=== PATIENT | male | born 1995 | race Caucasian/White ===

== ENCOUNTER 2016-12-17 22:52 | Emergency (ER) | payer MEDICAID, MEDICARE ==
--- NOTE | 2016-12-17 23:17 | EDM.PDOC ---
ED HPI GENERAL MEDICAL PROBLEM - General Chief Complaint: Behavioral/Psych Stated Complaint: NEW [facility] AMB Time Seen by Provider: 12/17/16 22:56 Source of Information: Reports: Patient, EMS History Limitations: Reports: Intoxication - History of Present Illness INITIAL COMMENTS - FREE TEXT/NARRATIVE: This is a 21-year-old male. He was brought in by the ambulance because he took 20 Motrin, drank a bottle of DayQuil, had some whiskey and was not acting right. 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 When he comes he is able to talk though he is somewhat confused though he knows he is at the hospital. He is not certain who it was the called the ambulance to come and get him but he indicated he thought it was family who thought he might be suicidal. Apparently he is overdosed several times on heroin which is his drug abuse but he states he hasn't used heroin in about a month. He normally shoots up in his arms his legs or his feet. He has been to rehabilitation several times but he did not indicate where. He is talking his vital signs are stable. He does not appear to be in acute distress. He does have some slurred speech and is confused at times with his story. When I asked the patient did this he is suicidal he says no I'm not trying to kill myself. He says he just wants to sleep. The best we can tell the patient states he took all of these things about 8 PM this evening which is about 3 hours prior to arriving to the ER. The parents arrived at 6:55 AM. They indicate that he has attempted suicide 3 times in the last 6 months and appears to be related to a woman in [place] that he had an Internet romance with the neck she went to [place] when he was 20 years old to be with her and then he brought her back home and she was a heroin addict and got him hooked on heroin. So he is a high risk individual for suicide attempts and gestures. Back Pain Score (Numeric/FACES): 8 - Related Data Allergies Allergy/AdvReac Type Severity Reaction Status Date / Time No Known Allergies Allergy Verified 12/17/16 23:09 Home Meds: Home Meds Doxepin 12/17/16 [History] Seroquel 12/17/16 [History] Past Medical History Musculoskeletal History: Reports: Back Pain, Chronic Psychiatric History: Reports: Bipolar, Depression, Schizophrenia, Suicide Attempt, Suicidal Ideation Other Psychiatric History: paranoid schizophrenia Social & Family History - Tobacco Use Smoking Status *Q: Current Every Day Smoker Years of Tobacco use: 1 Packs/Tins Daily: 1 - Recreational Drug Use Recreational Drug Use: Yes Drug Use in Last 12 Months: Yes Recreational Drug Type: Reports: Heroin, Methamphetamine Recreational Drug Use Frequency: Not Used In Over 3 Months ED ROS GENERAL - Review of Systems Review Of Systems: See Below Constitutional: Denies: Fever, Chills HEENT: Reports: No Symptoms Respiratory: Reports: No Symptoms Cardiovascular: Reports: No Symptoms Endocrine: Reports: No Symptoms GI/Abdominal: Reports: No Symptoms : Reports: No Symptoms Musculoskeletal: Reports: No Symptoms Skin: Reports: Other (He is a cutter and his left upper extremity has sustained the most cuts in the past and present) Neurological: Reports: Confusion Psychiatric: Reports: Other (Patient does abuse heroin, he denies being suicidal presently) Hematologic/Lymphatic: Reports: No Symptoms - Physical Exam Exam: See Below Exam Limited By: Altered Mental Status General Appearance: Alert, WD/WN, No Apparent Distress Eye Exam: Bilateral Eye: Normal Inspection Ears: Normal External Exam, Normal Canal, Normal TMs Nose: Normal Inspection Throat/Mouth: Normal Inspection, Normal Lips, Normal Voice, No Airway Compromise Head Exam: Normocephalic Neck: Supple Respiratory/Chest: No Respiratory Distress, Lungs Clear, Normal Breath Sounds Cardiovascular: Regular Rate, Rhythm, No Murmur GI/Abdominal: Soft, Non-Tender, Other (Bowel sounds are decreased in all 4 quadrants) Neuro Exam (Abbreviated): Alert, Confused, Slow to Respond, Other (Patient knows he is at the hospital he knows who he is, but he is confused and inattentive and with some recent memory confusion as to the events) Back Exam: Full Range of Motion Extremities: Other (He has multiple old and new linear abrasions to his left upper extremity and with some cuts to his left wrist that do not require suturing, his right upper extremity shows a couple of tract casarez though he has less cuttings on his right upper extremity) Psychiatric: Flat Affect Skin Exam: Warm, Dry EKG INTERPRETATION EKG Date: 12/17/16 Time: 23:15 EKG Interpretation Comments: EKG shows a normal sinus rhythm rate of 85, there are no acute ST or T-wave changes noted there is no ischemia noted. He does have poor R-wave progression in the anterior leads but I do not believe this indicates an old anterior TX. Course - Vital Signs Last Recorded V/S: Last Vital Signs Temp 97.3 F 12/17/16 22:58 Pulse 75 12/18/16 06:00 Resp 14 12/18/16 06:00 BP 119/72 12/17/16 22:58 Pulse Ox 97 12/18/16 06:00 - Orders/Labs/Meds Orders: Active Orders 24 hr Category Date Time Status EKG 12 Lead [EKG Documentation Completion] [RC] STAT Care 12/17/16 23:09 Active Sodium Chloride 0.9% [Normal Saline] 1,000 ml Med 12/18/16 00:30 Active IV ASDIRECTED Medication Orders Sodium Chloride (Normal Saline) 1,000 mls @ 1,000 mls/hr IV ASDIRECTED LUIS Last Admin: 12/18/16 00:30 Dose: 1,000 mls/hr Labs: Laboratory Tests 12/17/16 12/17/16 12/17/16 Range/Units 22:58 22:58 22:58 WBC 15.07 H (4.23-9.07) K/mm3 RBC 5.17 (4.63-6.08) M/mm3 Hgb 14.0 (13.7-17.5) gm/L Hct 42.5 (40.1-51.0) % MCV 82.2 (79.0-92.2) fl MCH 27.1 (25.7-32.2) pg MCHC 32.9 (32.2-35.5) g/dl RDW Std Deviation 48.2 H (35.1-43.9) fL Plt Count 318 (163-337) K/mm3 MPV 9.8 (9.4-12.3) fl Neut % (Auto) 68.0 H (34.0-67.9) % Lymph % (Auto) 17.6 L (21.8-53.1) % Summers % (Auto) 9.6 (5.3-12.2) % Eos % (Auto) 4.1 (0.8-7.0) Baso % (Auto) 0.5 (0.1-1.2) % Neut # (Auto) 10.24 H (1.78-5.38) K/mm3 Lymph # (Auto) 2.65 (1.32-3.57) K/mm3 Summers # (Auto) 1.45 H (0.30-0.82) K/mm3 Eos # (Auto) 0.62 H (0.04-0.54) K/mm3 Baso # (Auto) 0.08 (0.01-0.08) K/mm3 Manual Slide Review Abnormal smear Sodium 144 (136-145) mEq/L Potassium 2.8 L (3.5-5.1) mEq/L Chloride 104 (98-107) mEq/L Carbon Dioxide 26 (21-32) mEq/L Anion Gap 16.8 H (5-15) BUN 8 (7-18) mg/dL Creatinine 1.0 (0.7-1.3) mg/dL Est Cr Clr Drug Dosing 156.17 mL/min Estimated GFR (MDRD) > 60 (>60) mL/min BUN/Creatinine Ratio 8.0 L (14-18) Glucose 92 (74-106) mg/dL Lactic Acid (0.4-2.0) mmol/L Calcium 9.2 (8.5-10.1) mg/dL Total Bilirubin 0.2 (0.2-1.0) mg/dL AST 10 L (15-37) U/L ALT 36 (16-63) U/L Alkaline Phosphatase 94 (46-116) U/L Total Protein 8.2 (6.4-8.2) g/dl Albumin 3.8 (3.4-5.0) g/dl Globulin 4.4 gm/dL Albumin/Globulin Ratio 0.9 L (1-2) Urine Color (Yellow) Urine Appearance (Clear) Urine pH (5.0-8.0) Ur Specific [place] (1.005-1.030) Urine Protein (Negative) Urine Glucose (UA) (Negative) Urine Ketones (Negative) Urine Occult Blood (Negative) Urine Nitrite (Negative) Urine Bilirubin (Negative) Urine Urobilinogen (0.2-1.0) Ur Leukocyte Esterase (Negative) Urine RBC (0-5) /hpf Urine WBC (0-5) /hpf Ur Epithelial Cells (0-5) /hpf Urine Bacteria (FEW) /hpf Urine Mucus (FEW) /hpf Salicylates 5.8 (2.8-20) mg/dL Urine Opiates Screen (NEGATIVE) Ur Buprenorphine Scrn (NEGATIVE) Ur Oxycodone Screen (NEGATIVE) Urine Methadone Screen (NEGATIVE) Ur Propoxyphene Screen (NEGATIVE) Acetaminophen 6 L (10-30) ug/mL Ur Barbiturates Screen (NEGATIVE) Ur Tricyclics Screen (NEGATIVE) Ur Phencyclidine Scrn (NEGATIVE) Ur Amphetamine Screen (NEGATIVE) U Methamphetamines Scrn (NEGATIVE) U Benzodiazepines Scrn (NEGATIVE) U Cocaine Metab Screen (NEGATIVE) U Marijuana (THC) Screen (NEGATIVE) Ethyl Alcohol 0.19 (0.00) gm% 12/17/16 12/18/16 12/18/16 Range/Units 23:15 00:25 00:36 WBC (4.23-9.07) K/mm3 RBC (4.63-6.08) M/mm3 Hgb (13.7-17.5) gm/L Hct (40.1-51.0) % MCV (79.0-92.2) fl MCH (25.7-32.2) pg MCHC (32.2-35.5) g/dl RDW Std Deviation (35.1-43.9) fL Plt Count (163-337) K/mm3 MPV (9.4-12.3) fl Neut % (Auto) (34.0-67.9) % Lymph % (Auto) (21.8-53.1) % Summers % (Auto) (5.3-12.2) % Eos % (Auto) (0.8-7.0) Baso % (Auto) (0.1-1.2) % Neut # (Auto) (1.78-5.38) K/mm3 Lymph # (Auto) (1.32-3.57) K/mm3 Summers # (Auto) (0.30-0.82) K/mm3 Eos # (Auto) (0.04-0.54) K/mm3 Baso # (Auto) (0.01-0.08) K/mm3 Manual Slide Review Sodium (136-145) mEq/L Potassium (3.5-5.1) mEq/L Chloride (98-107) mEq/L Carbon Dioxide (21-32) mEq/L Anion Gap (5-15) BUN (7-18) mg/dL Creatinine (0.7-1.3) mg/dL Est Cr Clr Drug Dosing mL/min Estimated GFR (MDRD) (>60) mL/min BUN/Creatinine Ratio (14-18) Glucose (74-106) mg/dL Lactic Acid 2.6 H (0.4-2.0) mmol/L Calcium (8.5-10.1) mg/dL Total Bilirubin (0.2-1.0) mg/dL AST (15-37) U/L ALT (16-63) U/L Alkaline Phosphatase (46-116) U/L Total Protein (6.4-8.2) g/dl Albumin (3.4-5.0) g/dl Globulin gm/dL Albumin/Globulin Ratio (1-2) Urine Color Yellow (Yellow) Urine Appearance Clear (Clear) Urine pH 6.5 (5.0-8.0) Ur Specific [place] 1.015 (1.005-1.030) Urine Protein Negative (Negative) Urine Glucose (UA) Negative (Negative) Urine Ketones Negative (Negative) Urine Occult Blood Negative (Negative) Urine Nitrite Negative (Negative) Urine Bilirubin Negative (Negative) Urine Urobilinogen 0.2 (0.2-1.0) Ur Leukocyte Esterase Negative (Negative) Urine RBC Not seen (0-5) /hpf Urine WBC Not seen (0-5) /hpf Ur Epithelial Cells Not seen (0-5) /hpf Urine Bacteria Not seen (FEW) /hpf Urine Mucus Few (FEW) /hpf Salicylates (2.8-20) mg/dL Urine Opiates Screen (NEGATIVE) Ur Buprenorphine Scrn (NEGATIVE) Ur Oxycodone Screen (NEGATIVE) Urine Methadone Screen (NEGATIVE) Ur Propoxyphene Screen (NEGATIVE) Acetaminophen 4 L (10-30) ug/mL Ur Barbiturates Screen (NEGATIVE) Ur Tricyclics Screen (NEGATIVE) Ur Phencyclidine Scrn (NEGATIVE) Ur Amphetamine Screen (NEGATIVE) U Methamphetamines Scrn (NEGATIVE) U Benzodiazepines Scrn (NEGATIVE) U Cocaine Metab Screen (NEGATIVE) U Marijuana (THC) Screen (NEGATIVE) Ethyl Alcohol (0.00) gm% 12/18/16 12/18/16 12/18/16 Range/Units 00:36 01:35 MST 03:10 WBC (4.23-9.07) K/mm3 RBC (4.63-6.08) M/mm3 Hgb (13.7-17.5) gm/L Hct (40.1-51.0) % MCV (79.0-92.2) fl MCH (25.7-32.2) pg MCHC (32.2-35.5) g/dl RDW Std Deviation (35.1-43.9) fL Plt Count (163-337) K/mm3 MPV (9.4-12.3) fl Neut % (Auto) (34.0-67.9) % Lymph % (Auto) (21.8-53.1) % Summers % (Auto) (5.3-12.2) % Eos % (Auto) (0.8-7.0) Baso % (Auto) (0.1-1.2) % Neut # (Auto) (1.78-5.38) K/mm3 Lymph # (Auto) (1.32-3.57) K/mm3 Summers # (Auto) (0.30-0.82) K/mm3 Eos # (Auto) (0.04-0.54) K/mm3 Baso # (Auto) (0.01-0.08) K/mm3 Manual Slide Review Sodium 145 (136-145) mEq/L Potassium 3.2 L (3.5-5.1) mEq/L Chloride 107 (98-107) mEq/L Carbon Dioxide 25 (21-32) mEq/L Anion Gap 16.2 H (5-15) BUN 9 (7-18) mg/dL Creatinine 0.8 (0.7-1.3) mg/dL Est Cr Clr Drug Dosing 195.21 mL/min Estimated GFR (MDRD) > 60 (>60) mL/min BUN/Creatinine Ratio 11.3 L (14-18) Glucose 81 (74-106) mg/dL Lactic Acid (0.4-2.0) mmol/L Calcium 8.3 L (8.5-10.1) mg/dL Total Bilirubin 0.2 (0.2-1.0) mg/dL AST 9 L (15-37) U/L ALT 33 (16-63) U/L Alkaline Phosphatase 89 (46-116) U/L Total Protein 7.4 (6.4-8.2) g/dl Albumin 3.4 (3.4-5.0) g/dl Globulin 4.0 gm/dL Albumin/Globulin Ratio 0.9 L (1-2) Urine Color (Yellow) Urine Appearance (Clear) Urine pH (5.0-8.0) Ur Specific [place] (1.005-1.030) Urine Protein (Negative) Urine Glucose (UA) (Negative) Urine Ketones (Negative) Urine Occult Blood (Negative) Urine Nitrite (Negative) Urine Bilirubin (Negative) Urine Urobilinogen (0.2-1.0) Ur Leukocyte Esterase (Negative) Urine RBC (0-5) /hpf Urine WBC (0-5) /hpf Ur Epithelial Cells (0-5) /hpf Urine Bacteria (FEW) /hpf Urine Mucus (FEW) /hpf Salicylates 4.8 (2.8-20) mg/dL Urine Opiates Screen Negative (NEGATIVE) Ur Buprenorphine Scrn Negative (NEGATIVE) Ur Oxycodone Screen Negative (NEGATIVE) Urine Methadone Screen Negative (NEGATIVE) Ur Propoxyphene Screen Negative (NEGATIVE) Acetaminophen (10-30) ug/mL Ur Barbiturates Screen Negative (NEGATIVE) Ur Tricyclics Screen Negative (NEGATIVE) Ur Phencyclidine Scrn Negative (NEGATIVE) Ur Amphetamine Screen Negative (NEGATIVE) U Methamphetamines Scrn Negative (NEGATIVE) U Benzodiazepines Scrn Negative (NEGATIVE) U Cocaine Metab Screen Negative (NEGATIVE) U Marijuana (THC) Screen Negative (NEGATIVE) Ethyl Alcohol 0.08 (0.00) gm% Meds: Medications Generic Name Dose Route Start Last Admin Trade Name Luiz PRN Reason Stop Dose Admin Sodium Chloride 1,000 mls @ 1,000 mls/hr 12/18/16 00:30 12/18/16 00:30 Normal Saline IV 1,000 mls/hr ASDIRECTED [facility] Administration - Re-Assessments/Exams Free Text/Narrative Re-Assessment/Exam: 12/18/16 06:29 During the patient's stay in the ER this morning he has been sleeping the entire time and in no distress his vital signs have been stable. He is awake now and is willing to talk to someone about this event and be evaluated psychologically. He states he is not suicidal at this time and has no desire to hurt himself. He denies any significant symptoms presently other than just being very tired. He might have some mild stomach discomfort but no pain and there's been no nausea or vomiting. 12/18/16 06:30 We will see if we can get in individual to psychologically evaluate him to determine his disposition. 12/18/16 07:[address] Alexander at [facility] in [place] psych bobby and she agrees to accept the patient in transport for further evaluation and treatment. I did speak to Dr. Howard regarding this patient and he felt that this was a necessary the middle with his history with his repetitive overdosing and his admitted history of heroin use. Therefore fill out the committal papers. Due to the wait time for the head injury or air traffic control operator to come to the ER the patient will be temporarily housed at the law [facility] Center [facility]. 12/18/16 08:01 The patient became more agitated and slightly belligerent when he realized to be going to a psych unit for evaluation. He began taking off all of his wires and monitors and almost pulled out his IV untill we came into the room. I explained to him that he was under committal and that he would go to [facility] psych unit in [place] for further evaluation and treatment. We did call the local Police Department to come because of the patient's desire to leave and we were afraid he is a flight risk. He is a danger to himself at this time. Departure - Departure Time of Disposition: 07:58 Disposition: DC/Tfer to Psych Hosp/Unit 65 Condition: Good Clinical Impression: Heroin addiction Drug overdose, multiple drugs Qualifiers: Encounter type: initial encounter Injury intent: intentional self-harm Qualified Code(s): T50.902A - Poisoning by unspecified drugs, medicaments and biological substances, intentional self-harm, initial encounter Suicide gesture Qualifiers: Encounter type: initial encounter Qualified Code(s): X83.8XXA - Intentional self-harm by other specified means, initial encounter Laceration of forearm, left Qualifiers: Encounter type: initial encounter Qualified Code(s): S51.812A - Laceration without foreign body of left forearm, initial encounter Laceration of left wrist Qualifiers: Encounter type: initial encounter Qualified Code(s): S61.512A - Laceration without foreign body of left wrist, initial encounter Acute alcohol intoxication Qualifiers: Complication of substance-induced condition: uncomplicated Qualified Code(s): F10.929 - Alcohol use, unspecified with intoxication, unspecified - Discharge Information Forms: ED Department Discharge Additional Instructions: He will be discharged to the [facility] for holding until the [facility] can pick him up and take him to [facility] in [place] to the psych unit for further evaluation and treatment. Dr. Alexander at [facility] psych unit in [place] accepts the patient in transport for further evaluation and treatment. All committal forms were filled out and will accompany the patient as well as the history and physical. ED Communication - ED Communication Date/Time Date: 12/18/16 Time Called: 08:03 - Discussed Case With (1) Discussed Case With (1): Admitting Provider Person/s Notified (1): Dr. Alexander (She accepts the patient) - My Orders Last 24 Hours: My Active Orders 12/17/16 23:09 EKG 12 Lead [EKG Documentation Completion] [RC] STAT 12/18/16 00:30 Sodium Chloride 0.9% [Normal Saline] 1,000 ml IV ASDIRECTED - Assessment/Plan Last 24 Hours: My Active Orders 12/17/16 23:09 EKG 12 Lead [EKG Documentation Completion] [RC] STAT 12/18/16 00:30 Sodium Chloride 0.9% [Normal Saline] 1,000 ml IV ASDIRECTED
[2016-12-17 23:32] LABS: ACETAMINOPHEN 6 ug/mL (10-30)
[2016-12-18] MEDS ORDERED: Sodium Chloride 0.9% 1,000 ML IV SCH (00:30)
== END 2016-12-18 08:11 ==
LOC: JD.ED 22:52
DX: T50.902A Poisoning by unspecified drugs, medicaments and biological substances, intentional self-harm, initial encounter (principal); S51.812A Laceration without foreign body of left forearm, initial encounter; S61.512A Laceration without foreign body of left wrist, initial encounter; F10.120 Alcohol abuse with intoxication, uncomplicated; F32.9 Major depressive disorder, single episode, unspecified; F17.210 Nicotine dependence, cigarettes, uncomplicated; X78.9XXA Intentional self-harm by unspecified sharp object, initial encounter; Y90.0 Blood alcohol level of less than 20 mg/100 ml
CPT/HCPCS: 36415; 80053; 80306; 81001; 83605; 85025; 93005; 96360; 99285; G0480; J7040; 93010

== ENCOUNTER 2017-01-20 16:41 | Emergency (ER) | payer MEDICAID, MEDICARE ==
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
[2017-01-20] MEDS ORDERED: Lidocaine 2% Jelly 10 ML Urojet MUCMEM ONE (19:00)
== END 2017-01-20 20:45 | disposition home or self-care (01) ==
LOC: JD.ED 16:41
DX: R33.9 Retention of urine, unspecified (principal); F15.10 Other stimulant abuse, uncomplicated; F32.9 Major depressive disorder, single episode, unspecified; F17.210 Nicotine dependence, cigarettes, uncomplicated; Z79.899 Other long term (current) drug therapy
CPT/HCPCS: 36415; 51702; 51798; 80053; 81001; 85025; 99283-25; 99284-25

== ENCOUNTER 2017-01-27 13:24 | Emergency (ER) | payer MEDICARE, MEDICAID ==
--- NOTE | 2017-01-27 16:02 | US ---
Left lower extremity deep venous ultrasound: Duplex and color flow imaging was obtained of the left common femoral, proximal greater saphenous, superficial femoral, popliteal, posterior tibial and peroneal veins. Right common femoral vein also evaluated. Posterior tibial and peroneal veins were seen by color flow Doppler and show normal phasicity. These same veins could not be clearly seen to compress but I do not believe that there is any definite venous thrombosis within the calf veins. Other veins show normal phasic flow, augmentation and compression. Impression: 1. Slightly limited evaluation of the calf veins but nothing felt to be present to indicate deep venous thrombosis within the left lower extremity or within the right common femoral vein. Diagnostic code #2
[2017-01-27] MEDS ORDERED: Iopamidol 755 Mg/ML 100 ML Bottle IVPUSH ONE (16:17)
[2017-01-27] MEDS ORDERED: Sodium Chloride 0.9% 10 ML Syringe FLUSH PRN (16:17)
[2017-01-27] MEDS ORDERED: Iopamidol 755 MG/ML 50 ML Bottle IVPUSH ONE (16:17)
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
[2017-01-27] MEDS ORDERED: Ibuprofen 800 MG Tab PO ONE (16:59)
[2017-01-27] MEDS ORDERED: Sodium Chloride 0.9% 100 ML IV SCH (17:00)
[2017-01-27] MEDS ORDERED: Doxycycline 100 MG Cap PO ONE (17:20)
--- NOTE | 2017-01-27 17:29 | CT ---
CT chest Technique: Multiple axial sections were obtained through the chest. Intravenous contrast was utilized. Study has been performed as a pulmonary angiogram protocol. Findings: Pulmonary arteries are moderately well-opacified. Filling defects are felt to be present within the subsegmental branches within both lower lobes compatible with small pulmonary emboli. Small filling defects also seen within several segmental and subsegmental branches within the right upper lung and within the left upper lung. Visualized upper abdominal structures are within normal limits. No pericardial thickening is seen. No findings to indicate elevated right heart pressures. Mediastinum and hilar regions show no adenopathy or mass. Lungs are clear. No pleural effusions are seen. Impression: 1. Multiple small pulmonary emboli seen within both lower lungs as well as within both upper lungs. Diagnostic code #5
--- NOTE | 2017-01-30 08:34 | CR ---
Chest: Two views of the chest were obtained. Comparison: No prior chest x-ray. Heart size and mediastinum are normal. Minimal left basilar atelectasis is seen. Lungs otherwise are clear. Bony structures show slight anterior wedging at the thoracolumbar junction resulting in kyphosis. Impression: 1. Anterior wedging at the thoracolumbar junction which appears to be old. 2. Nothing acute is seen on two-view chest x-ray. Diagnostic code #2
== END 2017-01-27 17:29 | disposition home or self-care (01) ==
LOC: JD.ED 13:24 → SUPCPDRO 13:24 → JD.ED 17:29
DX: L03.116 Cellulitis of left lower limb (principal); F31.9 Bipolar disorder, unspecified; F17.210 Nicotine dependence, cigarettes, uncomplicated; Z79.899 Other long term (current) drug therapy
CPT/HCPCS: 36415; 71020; 71275; 80053; 84484; 85025; 85610; 93005; 93971; 99284; J7030; J7050; Q9967; 93010

== ENCOUNTER 2017-01-28 14:24 | Emergency (ER) | payer MEDICARE, MEDICAID | END 2017-01-28 14:25 | disposition left against medical advice (07) | LOC: JD.ED 14:24 | DX: Z53.21 Procedure and treatment not carried out due to patient leaving prior to being seen by health care provider (principal) ==

== ENCOUNTER 2017-01-31 14:10 | Inpatient (IN) | payer MEDICARE, MEDICAID ==
[2017-01-31] MEDS ORDERED: chlordiazePOXIDE 25 MG Cap PO ONE ×2 (14:48→21:00)
[2017-01-31] MEDS ORDERED: Sodium Chloride 0.9% 10 ML Syringe FLUSH PRN (14:48)
[2017-01-31] MEDS ORDERED: Folic Acid 1 MG Tab PO ONE (14:50)
[2017-01-31] MEDS ORDERED: Thiamine 100 MG Tab PO ONE (14:50)
[2017-01-31] MEDS ORDERED: LORazepam 2 MG/ML MDV IVPUSH ONE (14:50)
[2017-01-31] MEDS ORDERED: Thiamine 100 MG Tab ONE (15:12)
[2017-01-31] MEDS ORDERED: chlordiazePOXIDE 25 MG Cap ONE (15:13)
[2017-01-31] MEDS ORDERED: LORazepam 2 MG/ML MDV ONE (15:13)
[2017-01-31] MEDS ORDERED: Sodium Chloride 0.9% 1,000 ML ONE ×2 (15:13→16:35)
[2017-01-31] MEDS ORDERED: Folic Acid 1 MG Tab ONE (15:14)
[2017-01-31] MEDS: Sodium Chloride 0.9% 1,000 ML IV SCH ×2 (16:00→20:15)
[2017-01-31 16:09] LABS: ACETAMINOPHEN 0 ug/mL (10-30)
--- NOTE | 2017-01-31 16:40 | EDM.PDOCBH ---
ED HPI GENERAL MEDICAL PROBLEM - General Chief Complaint: Drug or Alcohol Abuse Stated Complaint: ALCOHOL ABUSE Time Seen by Provider: 01/31/17 14:47 Source of Information: Reports: Patient History Limitations: Reports: Intoxication - History of Present Illness INITIAL COMMENTS - FREE TEXT/NARRATIVE: Patient is a 21-year-old male who presents to the ED wishing to obtain help for drug and alcohol abuse. Patient states he drinks 1 L of vodka a day and uses heroin IV heavily throughout the day. States he last used heroin last night about 1:00. States he last consumed alcohol about 11:00 last night. In the past patient has detoxed off heroin with no significant issues. States he's never detox off alcohol. He does have a history of seizures with overdosing. In addition he's been using drugs and alcohol since the age of 14. He has a history of self cutting in attempting suicide 3. States he slit his wrist x1 and overdosed twice. Patient states he is currently not suicidal, homicidal, or experiencing any hallucinations. States he was recently diagnosed with a pulmonary embolus and started on Lovenox and another anticoagulant suspected warfarin. He has swelling and pain to the posterior aspect of his left calf. He does not work. He was incarcerated for one year for assault. Otherwise he offers no additional complaints. He's undergone rehabilitation have for drugs and alcohol 3 months ago in [place]. He is undergone psych evaluation 8 times inpatient last episode 2 months ago in [place]. Back Pain Score (Numeric/FACES): 7 - Related Data Allergies Allergy/AdvReac Type Severity Reaction Status Date / Time No Known Allergies Allergy Verified 01/31/17 14:27 Home Meds: Home Meds Seroquel 400 mg PO BID 12/17/16 [History] ARIPiprazole [Abilify] 10 mg PO DAILY 01/20/17 [History] Diazepam [Valium] 5 mg PO BEDTIME 01/20/17 [History] Pregabalin [Lyrica] 300 mg PO BID 01/20/17 [History] Venlafaxine [Effexor XR] 150 mg PO DAILY 01/20/17 [History] Doxycycline [Vibramycin] 100 mg PO BID #20 cap 01/27/17 [Rx] Past Medical History Respiratory History: Reports: PE Musculoskeletal History: Reports: Back Pain, Chronic Neurological History: Reports: Speech Problems, Other (See Below) Other Neuro History: Speech problems "from childhood trauma" Psychiatric History: Reports: Anxiety, Bipolar, Depression, Schizophrenia, Suicide Attempt, Suicidal Ideation Other Psychiatric History: paranoid schizophrenia Social & Family History - Family History Family Medical History: Noncontributory - Tobacco Use Smoking Status *Q: Current Every Day Smoker Years of Tobacco use: 5 Packs/Tins Daily: 1 - Caffeine Use Caffeine Use: Reports: Coffee, Energy Drinks - Alcohol Use Date of Last Drink: 01/30/17 Time of Last Drink: 23:00 - Recreational Drug Use Recreational Drug Use: Yes Drug Use in Last 12 Months: Yes Recreational Drug Type: Reports: Heroin, Methamphetamine Other Recreational Drug Type: last usedc about 1.5 yrs ago Recreational Drug Use Frequency: Daily ED ROS GENERAL - Review of Systems Review Of Systems: See Below Constitutional: Reports: No Symptoms HEENT: Reports: No Symptoms Respiratory: Reports: Pleuritic Chest Pain. Denies: Cough, Sputum Cardiovascular: Reports: Chest Pain (Unchanged from recent diagnosis of PE.), Dyspnea on Exertion (Unchanged from recent diagnosis of PE.). Denies: Lightheadedness, Orthopnea, Palpitations, PND, Syncope GI/Abdominal: Reports: No Symptoms : Reports: No Symptoms Musculoskeletal: Reports: Leg Pain (Left calf pain secondary to cellulitis and blood clot.) Skin: Reports: No Symptoms Neurological: Reports: No Symptoms ED EXAM, BEHAVIORAL HEALTH - Physical Exam Exam: See Below Exam Limited By: Intoxication General Appearance: Alert, WD/WN, Anxious Eye Exam: Bilateral Eye: PERRL Ears: Hearing Grossly Normal Nose: Normal Inspection Throat/Mouth: Normal Voice, No Airway Compromise Head: Atraumatic, Normocephalic Neck: Normal Inspection, Supple Respiratory/Chest: No Respiratory Distress, Lungs Clear, Normal Breath Sounds, No Accessory Muscle Use, Chest Non-Tender Cardiovascular: Normal Peripheral Pulses, Tachycardia GI/Abdominal: Normal Bowel Sounds, Soft, Non-Tender, No Organomegaly, No Distention Extremities: Normal Inspection, Normal Range of Motion, No Pedal Edema, Normal Capillary Refill, Other (To the left posterior calf) Neurological: Alert, CN II-XII Intact, Normal Cognition, No Motor/Sensory Deficits, Oriented x 3 Psychiatric: Alert, Normal Affect, Normal Cognition, Oriented. No: Suicidal Plan, Suicidal Thoughts, Auditory Hallucinations, Visual Hallucinations Skin Exam: Warm, Dry, Intact, Normal color, No rash COURSE, BEHAVIORAL HEALTH COMP - Course Vital Signs: Last Vital Signs Temp 99.5 F 01/31/17 18:57 Pulse 95 01/31/17 18:57 Resp 23 H 01/31/17 18:57 BP 122/66 01/31/17 18:57 Pulse Ox 98 01/31/17 18:58 Orders, Labs, Meds: Active Orders 24 hr Category Date Time Status Admission Status [Patient Status] [ADT] Routine ADT 01/31/17 18:38 Active CIWAA Assessment [RC] Q1HR Care 01/31/17 14:48 Active Cardiac Monitoring [RC] . DIRECTED Care 01/31/17 18:38 Active EKG Documentation Completion [RC] STAT Care 01/31/17 14:47 Active Consult to Filter Tip Inspector [CONS] ONETIME Cons 01/31/17 15:10 Ordered Chest 1V Frontal [CR] Routine Exams 01/31/17 15:00 Taken BENZODIAZEPINE CONF (LCMSMS) Stat Lab 01/31/17 14:52 Received LORazepam [Ativan] Med 01/31/17 15:07 Active See Protocol IVPUSH ASDIRECTED PRN Sodium Chloride 0.9% [Normal Saline] 1,000 ml Med 01/31/17 15:00 Active IV ASDIRECTED Sodium Chloride 0.9% [Saline Flush] Med 01/31/17 14:48 Active 10 ml FLUSH ASDIRECTED PRN Peripheral IV Insertion Adult [OM.PC] Stat Oth 01/31/17 14:47 Ordered Medication Orders Acetaminophen (Tylenol) 650 mg PO Q4H PRN PRN Reason: Pain (Mild 1-3)/fever Albuterol/Ipratropium (Duoneb 3.0-0.5 Mg/3 Ml) 3 ml NEB Q4H PRN PRN Reason: Shortness Of Breath/wheezing Aripiprazole (Abilify) 10 mg PO DAILY LUIS Diphenhydramine HCl (Benadryl) 50 mg PO BEDTIME PRN PRN Reason: Sleep Last Admin: 01/31/17 20:03 Dose: 50 mg Doxycycline Hyclate (Vibramycin) 100 mg PO BID LUIS Last Admin: 01/31/17 21:15 Dose: 100 mg Enoxaparin Sodium (Lovenox) 120 mg SUBCUT Q12HR LUIS Last Admin: 01/31/17 20:07 Dose: 120 mg Famotidine (Pepcid) 20 mg PO BID [facility] Last Admin: 01/31/17 21:15 Dose: 20 mg Folic Acid (Folic Acid) 1 mg PO DAILY [facility] Hydralazine HCl (Apresoline) 10 mg IVPUSH Q6H PRN PRN Reason: Hypertension Sodium Chloride (Normal Saline) 1,000 mls @ 250 mls/hr IV ASDIRECTED [facility] Last Admin: 01/31/17 20:15 Dose: 250 mls/hr Infusion: 01/31/17 20:00 Dose: 250 mls/hr Admin: 01/31/17 16:00 Dose: 250 mls/hr Levothyroxine Sodium (Levothyroxine) 200 mcg PO ACBREAKFAST [facility] Lorazepam (Ativan) 0 mg IVPUSH ASDIRECTED PRN; Protocol PRN Reason: Anxiety Lorazepam (Ativan) 2 mg IVPUSH Q4H PRN PRN Reason: Seizures Lorazepam (Ativan) 1 mg IVPUSH Q4H PRN PRN Reason: Anxiety Magnesium Sulfate (Pharmacy To Dose - Magnesium Replacement) 1 dose .XX ASDIRECTED PRN PRN Reason: RX TO WATCH MAG LEVELS Metoprolol Tartrate (Lopressor) 5 mg IVPUSH Q4H PRN PRN Reason: Tachycardia Multivitamins (Thera) 1 each PO DAILY [facility] Last Admin: 01/31/17 20:00 Dose: 1 each Nicotine (Habitrol) 21 mg TRDERM DAILY [facility] Last Admin: 01/31/17 20:10 Dose: 21 mg Ondansetron HCl (Zofran Odt) 4 mg PO Q6H PRN PRN Reason: nausea, able to take PO Ondansetron HCl (Zofran) 4 mg IV Q6H PRN PRN Reason: Nausea/Vomiting Potassium Chloride (Pharmacy To Dose - Potassium Replacement) 1 dose .XX ASDIRECTED PRN PRN Reason: RX TO WATCH K LEVELS Quetiapine Fumarate (Seroquel) 25 mg PO DAILY [facility] Sodium Chloride (Saline Flush) 10 ml FLUSH ASDIRECTED PRN PRN Reason: Keep Vein Open Thiamine HCl (Vitamin B-1) 100 mg PO DAILY [facility] Topiramate (Topamax) 25 mg PO BID [facility] Venlafaxine HCl (Effexor Xr) 150 mg PO DAILY [facility] Warfarin Sodium (Pharmacy To Dose - Warfarin) 1 dose .XX ASDIRECTED [facility] Laboratory Tests 01/31/17 01/31/17 01/31/17 Range/Units 14:52 14:52 14:52 WBC (4.23-9.07) K/mm3 RBC (4.63-6.08) M/mm3 Hgb (13.7-17.5) gm/L Hct (40.1-51.0) % MCV (79.0-92.2) fl MCH (25.7-32.2) pg MCHC (32.2-35.5) g/dl RDW Std Deviation (35.1-43.9) fL Plt Count (163-337) K/mm3 MPV (9.4-12.3) fl Neut % (Auto) (34.0-67.9) % Lymph % (Auto) (21.8-53.1) % Campbell % (Auto) (5.3-12.2) % Eos % (Auto) (0.8-7.0) Baso % (Auto) (0.1-1.2) % Neut # (Auto) (1.78-5.38) K/mm3 Lymph # (Auto) (1.32-3.57) K/mm3 Campbell # (Auto) (0.30-0.82) K/mm3 Eos # (Auto) (0.04-0.54) K/mm3 Baso # (Auto) (0.01-0.08) K/mm3 PT (8.0-13.0) SECONDS INR Sodium 140 (136-145) mEq/L Potassium 4.1 (3.5-5.1) mEq/L Chloride 101 (98-107) mEq/L Carbon Dioxide 30 (21-32) mEq/L Anion Gap 13.1 (5-15) BUN 14 (7-18) mg/dL Creatinine 0.9 (0.7-1.3) mg/dL Est Cr Clr Drug Dosing 173.52 mL/min Estimated GFR (MDRD) > 60 (>60) mL/min BUN/Creatinine Ratio 15.6 (14-18) Glucose 80 (74-106) mg/dL Calcium 9.5 (8.5-10.1) mg/dL Magnesium 2.2 (1.8-2.4) mg/dl Total Bilirubin 0.3 (0.2-1.0) mg/dL AST 12 L (15-37) U/L ALT 44 (16-63) U/L Alkaline Phosphatase 112 (46-116) U/L Troponin I < 0.017 (0.00-0.056) ng/mL Total Protein 8.6 H (6.4-8.2) g/dl Albumin 3.9 (3.4-5.0) g/dl Globulin 4.7 gm/dL Albumin/Globulin Ratio 0.8 L (1-2) Triglycerides Cancelled Cholesterol Cancelled LDL Cholesterol Direct Cancelled HDL Cholesterol Cancelled Free T4 (0.76-1.46) ng/dL TSH 3rd Generation 5.994 H (0.516-4.13) uIU/mL Urine Color (Yellow) Urine Appearance (Clear) Urine pH (5.0-8.0) Ur Specific [place] (1.005-1.030) Urine Protein (Negative) Urine Glucose (UA) (Negative) Urine Ketones (Negative) Urine Occult Blood (Negative) Urine Nitrite (Negative) Urine Bilirubin (Negative) Urine Urobilinogen (0.2-1.0) Ur Leukocyte Esterase (Negative) Urine RBC (0-5) /hpf Urine WBC (0-5) /hpf Ur Epithelial Cells (0-5) /hpf Urine Bacteria (FEW) /hpf Urine Mucus (FEW) /hpf Salicylates 2.4 L (2.8-20) mg/dL Urine Opiates Screen Negative (NEGATIVE) Ur Buprenorphine Scrn Negative (NEGATIVE) Ur Oxycodone Screen Negative (NEGATIVE) Urine Methadone Screen Negative (NEGATIVE) Ur Propoxyphene Screen Negative (NEGATIVE) Acetaminophen 0 L (10-30) ug/mL Ur Barbiturates Screen Negative (NEGATIVE) Ur Tricyclics Screen Negative (NEGATIVE) Ur Phencyclidine Scrn Negative (NEGATIVE) Ur Amphetamine Screen Negative (NEGATIVE) U Methamphetamines Scrn Negative (NEGATIVE) U Benzodiazepines Scrn Presumptive positive H (NEGATIVE) U Cocaine Metab Screen Negative (NEGATIVE) U Marijuana (THC) Screen Negative (NEGATIVE) Ethyl Alcohol 0.00 (0.00) gm% 01/31/17 01/31/17 01/31/17 Range/Units 14:52 14:52 14:52 WBC 9.57 H (4.23-9.07) K/mm3 RBC 5.62 (4.63-6.08) M/mm3 Hgb 15.4 (13.7-17.5) gm/L Hct 46.9 (40.1-51.0) % MCV 83.5 (79.0-92.2) fl MCH 27.4 (25.7-32.2) pg MCHC 32.8 (32.2-35.5) g/dl RDW Std Deviation 51.9 H (35.1-43.9) fL Plt Count 400 H (163-337) K/mm3 MPV 9.9 (9.4-12.3) fl Neut % (Auto) 60.3 (34.0-67.9) % Lymph % (Auto) 23.2 (21.8-53.1) % Campbell % (Auto) 13.2 H (5.3-12.2) % Eos % (Auto) 2.8 (0.8-7.0) Baso % (Auto) 0.2 (0.1-1.2) % Neut # (Auto) 5.77 H (1.78-5.38) K/mm3 Lymph # (Auto) 2.22 (1.32-3.57) K/mm3 Campbell # (Auto) 1.26 H (0.30-0.82) K/mm3 Eos # (Auto) 0.27 (0.04-0.54) K/mm3 Baso # (Auto) 0.02 (0.01-0.08) K/mm3 PT 10.9 (8.0-13.0) SECONDS INR 1.00 Sodium (136-145) mEq/L Potassium (3.5-5.1) mEq/L Chloride (98-107) mEq/L Carbon Dioxide (21-32) mEq/L Anion Gap (5-15) BUN (7-18) mg/dL Creatinine (0.7-1.3) mg/dL Est Cr Clr Drug Dosing mL/min Estimated GFR (MDRD) (>60) mL/min BUN/Creatinine Ratio (14-18) Glucose (74-106) mg/dL Calcium (8.5-10.1) mg/dL Magnesium (1.8-2.4) mg/dl Total Bilirubin (0.2-1.0) mg/dL AST (15-37) U/L ALT (16-63) U/L Alkaline Phosphatase (46-116) U/L Troponin I (0.00-0.056) ng/mL Total Protein (6.4-8.2) g/dl Albumin (3.4-5.0) g/dl Globulin gm/dL Albumin/Globulin Ratio (1-2) Triglycerides Cholesterol LDL Cholesterol Direct HDL Cholesterol Free T4 (0.76-1.46) ng/dL TSH 3rd Generation (0.516-4.13) uIU/mL Urine Color Yellow (Yellow) Urine Appearance Clear (Clear) Urine pH 7.0 (5.0-8.0) Ur Specific [place] 1.025 (1.005-1.030) Urine Protein 1+ H (Negative) Urine Glucose (UA) Negative (Negative) Urine Ketones Trace H (Negative) Urine Occult Blood Negative (Negative) Urine Nitrite Negative (Negative) Urine Bilirubin Negative (Negative) Urine Urobilinogen 0.2 (0.2-1.0) Ur Leukocyte Esterase Negative (Negative) Urine RBC Not seen (0-5) /hpf Urine WBC 0-5 (0-5) /hpf Ur Epithelial Cells Not seen (0-5) /hpf Urine Bacteria Few (FEW) /hpf Urine Mucus Few (FEW) /hpf Salicylates (2.8-20) mg/dL Urine Opiates Screen (NEGATIVE) Ur Buprenorphine Scrn (NEGATIVE) Ur Oxycodone Screen (NEGATIVE) Urine Methadone Screen (NEGATIVE) Ur Propoxyphene Screen (NEGATIVE) Acetaminophen (10-30) ug/mL Ur Barbiturates Screen (NEGATIVE) Ur Tricyclics Screen (NEGATIVE) Ur Phencyclidine Scrn (NEGATIVE) Ur Amphetamine Screen (NEGATIVE) U Methamphetamines Scrn (NEGATIVE) U Benzodiazepines Scrn (NEGATIVE) U Cocaine Metab Screen (NEGATIVE) U Marijuana (THC) Screen (NEGATIVE) Ethyl Alcohol (0.00) gm% 01/31/17 Range/Units 14:52 WBC (4.23-9.07) K/mm3 RBC (4.63-6.08) M/mm3 Hgb (13.7-17.5) gm/L Hct (40.1-51.0) % MCV (79.0-92.2) fl MCH (25.7-32.2) pg MCHC (32.2-35.5) g/dl RDW Std Deviation (35.1-43.9) fL Plt Count (163-337) K/mm3 MPV (9.4-12.3) fl Neut % (Auto) (34.0-67.9) % Lymph % (Auto) (21.8-53.1) % [place] % (Auto) (5.3-12.2) % Eos % (Auto) (0.8-7.0) Baso % (Auto) (0.1-1.2) % Neut # (Auto) (1.78-5.38) K/mm3 Lymph # (Auto) (1.32-3.57) K/mm3 [place] # (Auto) (0.30-0.82) K/mm3 Eos # (Auto) (0.04-0.54) K/mm3 Baso # (Auto) (0.01-0.08) K/mm3 PT (8.0-13.0) SECONDS INR Sodium (136-145) mEq/L Potassium (3.5-5.1) mEq/L Chloride (98-107) mEq/L Carbon Dioxide (21-32) mEq/L Anion Gap (5-15) BUN (7-18) mg/dL Creatinine (0.7-1.3) mg/dL Est Cr Clr Drug Dosing mL/min Estimated GFR (MDRD) (>60) mL/min BUN/Creatinine Ratio (14-18) Glucose (74-106) mg/dL Calcium (8.5-10.1) mg/dL Magnesium (1.8-2.4) mg/dl Total Bilirubin (0.2-1.0) mg/dL AST (15-37) U/L ALT (16-63) U/L Alkaline Phosphatase (46-116) U/L Troponin I (0.00-0.056) ng/mL Total Protein (6.4-8.2) g/dl Albumin (3.4-5.0) g/dl Globulin gm/dL Albumin/Globulin Ratio (1-2) Triglycerides Cholesterol LDL Cholesterol Direct HDL Cholesterol Free T4 0.85 (0.76-1.46) ng/dL TSH 3rd Generation (0.516-4.13) uIU/mL Urine Color (Yellow) Urine Appearance (Clear) Urine pH (5.0-8.0) Ur Specific [place] (1.005-1.030) Urine Protein (Negative) Urine Glucose (UA) (Negative) Urine Ketones (Negative) Urine Occult Blood (Negative) Urine Nitrite (Negative) Urine Bilirubin (Negative) Urine Urobilinogen (0.2-1.0) Ur Leukocyte Esterase (Negative) Urine RBC (0-5) /hpf Urine WBC (0-5) /hpf Ur Epithelial Cells (0-5) /hpf Urine Bacteria (FEW) /hpf Urine Mucus (FEW) /hpf Salicylates (2.8-20) mg/dL Urine Opiates Screen (NEGATIVE) Ur Buprenorphine Scrn (NEGATIVE) Ur Oxycodone Screen (NEGATIVE) Urine Methadone Screen (NEGATIVE) Ur Propoxyphene Screen (NEGATIVE) Acetaminophen (10-30) ug/mL Ur Barbiturates Screen (NEGATIVE) Ur Tricyclics Screen (NEGATIVE) Ur Phencyclidine Scrn (NEGATIVE) Ur Amphetamine Screen (NEGATIVE) U Methamphetamines Scrn (NEGATIVE) U Benzodiazepines Scrn (NEGATIVE) U Cocaine Metab Screen (NEGATIVE) U Marijuana (THC) Screen (NEGATIVE) Ethyl Alcohol (0.00) gm% Medications Generic Name Dose Route Start Last Admin Trade Name Freq PRN Reason Stop Dose Admin Acetaminophen 650 mg 01/31/17 18:57 Tylenol PO Q4H PRN Pain (Mild 1-3)/fever Albuterol/Ipratropium 3 ml 01/31/17 18:57 Duoneb 3.0-0.5 Mg/3 Ml NEB Q4H PRN Shortness Of Breath/wheezing Aripiprazole 10 mg 02/01/17 09:00 Abilify PO DAILY LUIS Diphenhydramine HCl 50 mg 01/31/17 19:22 01/31/17 20:03 Benadryl PO 50 mg BEDTIME PRN Administration Sleep Doxycycline Hyclate 100 mg 01/31/17 21:00 01/31/17 21:15 Vibramycin PO 100 mg BID LUIS Administration Enoxaparin Sodium 120 mg 01/31/17 21:00 01/31/17 20:07 Lovenox SUBCUT 120 mg Q12HR LUIS Administration Famotidine 20 mg 01/31/17 21:00 01/31/17 21:15 Pepcid PO 20 mg BID LUIS Administration Folic Acid 1 mg 02/01/17 09:00 Folic Acid PO DAILY LUIS Hydralazine HCl 10 mg 01/31/17 20:19 Apresoline IVPUSH Q6H PRN Hypertension Sodium Chloride 1,000 mls @ 250 mls/hr 01/31/17 15:00 01/31/17 20:15 Normal Saline IV 250 mls/hr ASDIRECTED LUIS Administration Levothyroxine Sodium 200 mcg 02/01/17 06:00 Levothyroxine PO ACBREAKFAST LUIS Lorazepam 0 mg 01/31/17 15:07 Ativan IVPUSH ASDIRECTED PRN Anxiety Protocol Lorazepam 2 mg 01/31/17 19:05 Ativan IVPUSH Q4H PRN Seizures Lorazepam 1 mg 01/31/17 19:07 Ativan IVPUSH Q4H PRN Anxiety Magnesium Sulfate 1 dose 01/31/17 20:19 Pharmacy To Dose - Magnesium Replacement .XX ASDIRECTED PRN RX TO WATCH MAG LEVELS Metoprolol Tartrate 5 mg 01/31/17 20:19 Lopressor IVPUSH Q4H PRN Tachycardia Multivitamins 1 each 01/31/17 19:30 01/31/17 20:00 Thera PO 1 each DAILY [facility] Administration Nicotine 21 mg 01/31/17 19:00 01/31/17 20:10 Habitrol TRDERM 21 mg DAILY [facility] Administration Ondansetron HCl 4 mg 01/31/17 18:57 Zofran Odt PO Q6H PRN nausea, able to take PO Ondansetron HCl 4 mg 01/31/17 18:57 Zofran IV Q6H PRN Nausea/Vomiting Potassium Chloride 1 dose 01/31/17 20:19 Pharmacy To Dose - Potassium Replacement .XX ASDIRECTED PRN RX TO WATCH K LEVELS Quetiapine Fumarate 25 mg 02/01/17 09:00 Seroquel PO DAILY [facility] Sodium Chloride 10 ml 01/31/17 14:48 Saline Flush FLUSH ASDIRECTED PRN Keep Vein Open Thiamine HCl 100 mg 02/01/17 09:00 Vitamin B-1 PO DAILY [facility] Topiramate 25 mg 02/01/17 09:00 Topamax PO BID [facility] Venlafaxine HCl 150 mg 02/01/17 09:00 Effexor Xr PO DAILY [facility] Warfarin Sodium 1 dose 01/31/17 19:30 Pharmacy To Dose - Warfarin .XX ASDIRECTED LUIS Discontinued Medications Generic Name Dose Route Start Last Admin Trade Name Luiz PRN Reason Stop Dose Admin Chlordiazepoxide HCl Confirm 01/31/17 15:13 01/31/17 18:04 Librium Administered 01/31/17 15:14 Not Given Dose 50 mg .ROUTE .STK-MED ONE Chlordiazepoxide HCl 50 mg 01/31/17 14:48 01/31/17 15:00 Librium PO 01/31/17 14:49 50 mg ONETIME ONE Administration Chlordiazepoxide HCl 100 mg 01/31/17 21:00 01/31/17 20:01 Librium PO 01/31/17 21:01 100 mg BEDTIME ONE Administration Enoxaparin Sodium 120 mg 01/31/17 19:30 Lovenox SUBCUT DAILY [facility] Folic Acid Confirm 01/31/17 15:14 01/31/17 18:04 Folic Acid Administered 01/31/17 15:15 Not Given Dose 1 mg .ROUTE .STK-MED ONE Folic Acid 1 mg 01/31/17 14:50 01/31/17 15:00 Folic Acid PO 01/31/17 14:51 1 mg ONETIME ONE Administration Sodium Chloride Confirm 01/31/17 15:13 01/31/17 18:05 Normal Saline Administered 01/31/17 15:14 Not Given Dose 1,000 mls @ as directed .ROUTE .STK-MED ONE Sodium Chloride Confirm 01/31/17 16:35 01/31/17 15:00 Normal Saline Administered 01/31/17 16:36 1,000 ml Dose Administration 1,000 mls @ as directed .ROUTE .STK-MED ONE Lorazepam Confirm 01/31/17 15:13 01/31/17 18:07 Ativan Administered 01/31/17 15:14 Not Given Dose 2 mg .ROUTE .STK-MED ONE Lorazepam 2 mg 01/31/17 14:50 01/31/17 15:20 Ativan IVPUSH 01/31/17 14:51 2 mg ONETIME ONE Administration Quetiapine Fumarate 50 mg 01/31/17 21:00 01/31/17 20:00 Seroquel PO 01/31/17 21:01 50 mg BEDTIME ONE Administration Thiamine HCl Confirm 01/31/17 15:12 01/31/17 18:05 Vitamin B-1 Administered 01/31/17 15:13 Not Given Dose 100 mg .ROUTE .STK-MED ONE Thiamine HCl 100 mg 01/31/17 14:50 01/31/17 15:00 Vitamin B-1 PO 01/31/17 14:51 100 mg ONETIME ONE Administration Topiramate 50 mg 01/31/17 21:00 01/31/17 20:02 Topamax PO 01/31/17 21:01 50 mg BEDTIME ONE Administration Warfarin Sodium 10 mg 01/31/17 19:26 01/31/17 20:02 Coumadin PO 01/31/17 19:27 10 mg ONETIME ONE Administration Re-Assessment/Re-Exam: IV established with normal saline, folic acid 1 mg by mouth, Librium 50 mg by mouth, thiamine 100 mg by mouth, and Ativan 2 mg IVP. Initial labs and studies include CBC, chem 14, urine drug tox, serum EtOH, coag studies, magnesium, salicylate, acetaminophen, TSH, troponin, UA, chest x-ray one view, and EKG. CIWAA assessment with ativan protocol per CIWAA ordered. EKG sinus rhythm at a rate of [address] changes noted. Lab results are being faxed to the E.D. Labs reviewed: White blood cell count 9.57, hemoglobin 15.4, platelet count 400, UA 1+ protein/ketones trace, urine drug screen positive for benzos, and coag studies within normal limits. Sodium 140, potassium 4.1, AG 13.1, creatinine 0.9, magnesium 2.2, TSH mildly elevated 5.994. Acetaminophen was 0. Salicylate was 2.4. Serum EtOH 0.00. [facility] has spoken with the patient. Anticipating patient will be admitted for detox. In addition patient has a history of schizophrenia is hoping for treatment. 1722 I have called to speak with Dr. Baker with no answer. Message left to call back. 175 Per Stephanie with [facility], has accepted the patient. MCG being completed. Patient will require ICU admission. Departure - Departure Time of Disposition: 18:38 Disposition: Admitted As Inpatient 67 Condition: Fair Clinical Impression: Alcohol abuse, Drug abuse, Drug dependence Alcohol withdrawal syndrome Qualifiers: Complication of substance-induced condition: uncomplicated Qualified Code(s): F10.230 - Alcohol dependence with withdrawal, uncomplicated - Discharge Information - My Orders Last 24 Hours: My Active Orders 01/31/17 14:47 EKG Documentation Completion [RC] STAT Peripheral IV Insertion Adult [OM.PC] Stat 01/31/17 14:48 CIWAA Assessment [RC] Q1HR Sodium Chloride 0.9% [Saline Flush] 10 ml FLUSH ASDIRECTED PRN 01/31/17 14:52 BENZODIAZEPINE CONF (LCMSMS) Stat 01/31/17 15:00 Chest 1V Frontal [CR] Routine Sodium Chloride 0.9% [Normal Saline] 1,000 ml IV ASDIRECTED 01/31/17 15:07 LORazepam [Ativan] See Protocol IVPUSH ASDIRECTED PRN 01/31/17 15:10 Consult to Filter Tip Inspector [CONS] ONETIME 01/31/17 18:38 Admission Status [Patient Status] [ADT] Routine Cardiac Monitoring [RC] . DIRECTED - Assessment/Plan Last 24 Hours: My Active Orders 01/31/17 14:47 EKG Documentation Completion [RC] STAT Peripheral IV Insertion Adult [OM.PC] Stat 01/31/17 14:48 CIWAA Assessment [RC] Q1HR Sodium Chloride 0.9% [Saline Flush] 10 ml FLUSH ASDIRECTED PRN 01/31/17 14:52 BENZODIAZEPINE CONF (LCMSMS) Stat 01/31/17 15:00 Chest 1V Frontal [CR] Routine Sodium Chloride 0.9% [Normal Saline] 1,000 ml IV ASDIRECTED 01/31/17 15:07 LORazepam [Ativan] See Protocol IVPUSH ASDIRECTED PRN 01/31/17 15:10 Consult to Filter Tip Inspector [CONS] ONETIME 01/31/17 18:38 Admission Status [Patient Status] [ADT] Routine Cardiac Monitoring [RC] . DIRECTED
[2017-01-31] MEDS ORDERED: Ondansetron 4 MG Tab.DIS PO PRN (18:57)
[2017-01-31] MEDS ORDERED: Ondansetron 4 MG/2 ML SDV IV PRN (18:57)
[2017-01-31] MEDS ORDERED: Acetaminophen 325 MG Tab PO PRN (18:57)
[2017-01-31] MEDS ORDERED: Albuterol/Ipratropium 3.0-0.5 MG/3 ML Neb Soln NEB PRN (18:57)
[2017-01-31] MEDS ORDERED: LORazepam 2 MG/ML MDV IVPUSH PRN (19:05)
[2017-01-31] MEDS ORDERED: Warfarin 10 MG Tab PO ONE (19:26)
[2017-01-31] MEDS ORDERED: Enoxaparin 120 MG/0.8 ML Syringe SUBCUT SCH (19:30)
[2017-01-31] MEDS: Multivitamins,Therapeutic Tab PO SCH (20:00)
[2017-01-31] MEDS: diphenhydrAMINE 50 MG Cap PO PRN (20:03)
[2017-01-31] MEDS: Enoxaparin 120 MG/0.8 ML Syringe SUBCUT SCH (20:07)
[2017-01-31] MEDS: Nicotine 21 MG/24 Hr Patch TRDERM SCH (20:10)
--- NOTE | 2017-01-31 20:10 | PCM.HP ---
H&P History of Present Illness - General Date of Service: 01/31/17 Admit Problem/Dx: Alcohol/Heroin use, Recent PE Source of Information: Patient, Old Records, Provider, RN, RN Notes Reviewed History Limitations: Reports: No Limitations - History of Present Illness Initial Comments - Free Text/Narative: Rubén Solis is a 21 yo male who presents to our ED today (01/31/17) looking for help with drug and alcohol abuse. He reportedly drinks 1 L of vodka a day and uses IV heroin heavily. Last heroin use was around 01:00 last night. Last alcohol use was around 11:00 last night. He reports he has been detoxed off. In the past with no issues, although has never been detoxed off alcohol. Does have a history of seizures with overdosing. Reportedly his been on drugs and alcohol since age of 14. Has a history of self cutting in attempting suicide 3. He reportedly slit his wrists once an overdose twice. Currently denies any suicidal or homicidal ideations. Denies any hallucinations. He was diagnosed with a PE 3 days ago and placed on Lovenox along with another anticoagulant. He is unsure which one, we suspect warfarin. He has swelling and pain to the posterior aspect of his left calf. He was placed on doxycycline while in the ED for this. He does not work. He was reportedly incarcerated for 1 year for salt. He's undergone rehabilitation for drugs and alcohol 3 months ago in [place]. He's reportedly undergone psych evaluation 8 times as an inpatient. His last evaluation was 2 months ago in [place]. He does have speech problems which she reports are from "childhood trauma". As of a history of anxiety, bipolar, depression, schizophrenia, suicide attempts, suicidal ideations. He also has chronic back pain. He is a current every day smoker. He also reports heroin and methamphetamine use daily. In the ED temp is 98.5. Pulse was 101. Respirations 21. Blood pressure 120/ 58. Pulse ox 100% on room air. Labs are obtained: WBC is slightly elevated at 9.57. Hemoglobin 15.4. Hematocrit 46.9. He has normocytic. Sodium is 140. Potassium 4.1. Chloride 101. Carbon dioxide 30. Anion gap normal at 13.1. BUN 14. Creatinine 0.9. EGFR is greater than 60. Glucose is 80. Calcium 9.5. Magnesium 2.2. Bilirubin 0.3. AST is low at 12. ALT is 44. Alkaline phosphatase 112. Troponin is negative at less than 0.017. Albumin 3.9. TSH is high at 5.994. PT is 10.9. INR is 1.0. UA is negative although one plus protein and trace ketones are noted. UDS was presumptive positive for benzodiazepines. Ethanol alcohol was 0.00. He was given Librium 50 mg, folic acid 1 mg, Ativan 2 mg, and as bolus, thiamine 100 mg in the ED. See while protocols were initiated. EKG sinus sinus rhythm at a rate of [address]. financial services sales representative was consulted on the patient. He subsequently admitted to the ICU. He is a full code. He reports he sees a nurse practitioner in [place], which is where he lives, although he does not know her name. Back Pain Score (Numeric/FACES): 7 - Related Data Allergies/Adverse Reactions: Allergies Allergy/AdvReac Type Severity Reaction Status Date / Time No Known Allergies Allergy Verified 01/31/17 14:27 Home Medications: Home Meds Seroquel 400 mg PO BID 12/17/16 [History] ARIPiprazole [Abilify] 10 mg PO DAILY 01/20/17 [History] Diazepam [Valium] 5 mg PO BEDTIME 01/20/17 [History] Pregabalin [Lyrica] 300 mg PO BID 01/20/17 [History] Venlafaxine [Effexor XR] 150 mg PO DAILY 01/20/17 [History] Doxycycline [Vibramycin] 100 mg PO BID #20 cap 01/27/17 [Rx] Past Medical History Respiratory History: Reports: PE Musculoskeletal History: Reports: Back Pain, Chronic Neurological History: Reports: Speech Problems, Other (See Below) Other Neuro History: Speech problems "from childhood trauma" Psychiatric History: Reports: Anxiety, Bipolar, Depression, Schizophrenia, Suicide Attempt, Suicidal Ideation Other Psychiatric History: paranoid schizophrenia Social & Family History - Family History Family Medical History: Noncontributory - Tobacco Use Smoking Status *Q: Current Every Day Smoker Years of Tobacco use: 5 Packs/Tins Daily: 1 Second Hand Smoke Exposure: Yes - Caffeine Use Caffeine Use: Reports: None - Alcohol Use Days Per Week of Alcohol Use: 7 Number of Drinks Per Day: 1 Total Drinks Per Week: 7 Date of Last Drink: 01/30/17 Time of Last Drink: 23:00 - Recreational Drug Use Recreational Drug Use: Yes Drug Use in Last 12 Months: Yes Recreational Drug Type: Reports: Heroin, Methamphetamine Other Recreational Drug Type: last usedc about 1.5 yrs ago Recreational Drug Use Frequency: Daily H&P Review of Systems - Review of Systems: Review Of Systems: See Below General: Reports: Chills, Malaise, Fatigue, Diaphoresis. Denies: Fever, Weakness HEENT: Reports: Visual Changes (blurry vision ). Denies: Ear Pain, Eye Pain, Headaches, Sore Throat, Vertigo Pulmonary: Reports: Pleuritic Chest Pain. Denies: Shortness of Breath, Wheezing , Cough, Sputum Cardiovascular: Reports: No Symptoms, Chest Pain (reports from recent PE diagnosis ), Dyspnea on Exertion. Denies: Palpitations, Orthopnea, Edema, Lightheadedness, Blood Pressure Problem Gastrointestinal: Reports: Diarrhea, Nausea. Denies: Abdominal Pain, Anorexia, Constipation, Difficulty Swallowing, Distension, Vomiting Genitourinary: Reports: No Symptoms. Denies: Dysuria, Frequency, Burning, Pain , Urgency Musculoskeletal: Reports: Back Pain (chronic ), Leg Pain (left leg pain from prior cellulitis Dx. ). Denies: Neck Pain, Shoulder Pain, Arm Pain, Joint Pain , Muscle Pain, Muscle Stiffness Skin: Reports: No Symptoms Psychiatric: Reports: Depression, Anxiety, Other (Schizophrenia). Denies: Confusion, Mood Lability, Agitation, Cravings, Hallucinations, Suicidal Ideation , Homicidal Ideation, Hallucinations (Auditory), Hallucinations (Visual) Neurological: Reports: Trouble Speaking (baseline ). Denies: Confusion, Dizziness, Headache, Numbness, Seizure, Syncope, Tingling, Tremors, Weakness, Change in Speech, Gait Disturbance Hematologic/Lymphatic: Reports: No Symptoms Immunologic: Reports: No Symptoms Exam - Exam Exam: See Below - Vital Signs Vital Signs: Last Vital Signs Temp 98.4 F 01/31/17 14:18 Pulse 101 H 01/31/17 14:18 Resp 21 H 01/31/17 14:18 BP 128/58 L 01/31/17 14:18 Pulse Ox 100 01/31/17 14:18 Weight: 254 lb 9.6 oz - Exam Quality Assessment: DVT Prophylaxis General: Alert, Oriented, Cooperative, Mild Distress HEENT: Conjunctiva Clear, EACs Clear, EOMI, Hearing Intact, Mucosa Moist & [place] , Nares Patent, Normal Nasal Septum, Posterior Pharynx Clear, PERRLA Neck: Supple, Trachea Midline. No: JVD, Thyromegaly Lungs: Clear to Auscultation, Normal Respiratory Effort. No: Crackles, Rales, Rhonchi, Rub, Stridor, Wheezing Cardiovascular: Regular Rate, Regular Rhythm GI/Abdominal Exam: Normal Bowel Sounds, Soft, Non-Tender, No Organomegaly, No Distention, No Abnormal Bruit, No Mass, Pelvis Stable (Male) Exam: Deferred Rectal (Males) Exam: Deferred Back Exam: Normal Inspection, Full Range of Motion Extremities: Normal Range of Motion, Non-Tender, No Pedal Edema, Normal Capillary Refill, Redness (left posterior calf ) Peripheral Pulses: 2+: Radial (L), Radial (R), Posterior Tibial (L), Posterior Tibial (R), Dorsalis Pedis (L), Dorsalis Pedis (R) Skin: Warm, Dry, Intact Neurological: Cranial Nerves Intact (Grossly) Neuro Extensive - Mental Status: Alert, Oriented x3, Normal Mood/Affect, Normal Cognition, Memory Intact Neuro Extensive - Motor, Sensory, Reflexes: CN II-XII Intact (Grossly) Psychiatric: Alert, Anxious, Depressed, Withdrawal Symptoms. No: Labile Mood, Agitated, Suicidal Ideation, Homicidal Ideation, Hallucinations - Patient Data Result Diagrams: 01/31/17 14:52 01/31/17 14:52 *Q Meaningful Use (ADM) - VTE *Q VTE Criteria *Q: - Stroke *Q Stroke Criteria *Q: - AMI *Q AMI Criteria *Q: - Problem List (1) Alcohol withdrawal syndrome SNOMED Code(s): 503374113 ICD Code: F10.239 - ALCOHOL DEPENDENCE WITH WITHDRAWAL, UNSPECIFIED Status : Acute Priority: High Current Visit: Yes Qualifiers: Complication of substance-induced condition: uncomplicated Qualified Code(s ): F10.230 - Alcohol dependence with withdrawal, uncomplicated (2) Pulmonary embolism SNOMED Code(s): 52203484 ICD Code: I26.99 - OTHER PULMONARY EMBOLISM WITHOUT ACUTE COR PULMONALE Status: Acute Priority: High Current Visit: Yes Qualifiers: Pulmonary embolism type: other Chronicity: acute Acute cor pulmonale presence: without acute cor pulmonale Qualified Code(s): I26.99 - Other pulmonary embolism without acute cor pulmonale (3) Alcohol abuse SNOMED Code(s): 37045893 ICD Code: F10.10 - ALCOHOL ABUSE, UNCOMPLICATED Status: Chronic Priority : High Current Visit: Yes (4) Drug abuse SNOMED Code(s): 61524468 ICD Code: F19.10 - OTHER PSYCHOACTIVE SUBSTANCE ABUSE, UNCOMPLICATED Status : Chronic Priority: High Current Visit: Yes (5) Drug dependence SNOMED Code(s): 324577846 ICD Code: F19.20 - OTHER PSYCHOACTIVE SUBSTANCE DEPENDENCE, UNCOMPLICATED Status: Chronic Priority: High Current Visit: Yes (6) Cellulitis SNOMED Code(s): 995598403 ICD Code: L03.90 - CELLULITIS, UNSPECIFIED Status: Acute Priority: High Current Visit: Yes Qualifiers: Site of cellulitis: extremity Site of cellulitis of extremity: lower extremity Laterality: left Qualified Code(s): L03.116 - Cellulitis of left lower limb (7) Hypothyroidism SNOMED Code(s): 15658727 ICD Code: E03.9 - HYPOTHYROIDISM, UNSPECIFIED Status: Acute Priority: Medium Current Visit: Yes Qualifiers: Hypothyroidism type: unspecified Qualified Code(s): E03.9 - Hypothyroidism , unspecified Problem List Initiated/Reviewed/Updated: Yes Orders Last 24hrs: Active Orders 24 hr Category Date Time Status Ambulate [RC] PER UNIT ROUTINE Care 01/31/17 18:58 Active Antiembolic Devices [RC] PER UNIT ROUTINE Care 01/31/17 19:03 Active Height and Weight [RC] DAILY Care 01/31/17 18:57 Active Intake and Output [RC] QSHIFT Care 01/31/17 18:58 Active Notify Provider Consults [RC] ASDIRECTED Care 01/31/17 19:03 Active Oxygen Therapy [RC] PRN Care 01/31/17 18:57 Active Pulse Oximetry [RC] PRN Care 01/31/17 18:58 Active RT Aerosol Therapy [RC] ASDIRECTED Care 01/31/17 19:03 Active Up With Assistance [RC] ASDIRECTED Care 01/31/17 18:57 Active VTE/DVT Education [RC] PER UNIT ROUTINE Care 01/31/17 18:57 Active Vital Signs [RC] Q4H Care 01/31/17 18:57 Active Consult for Substance Abuse [CONS] Routine Cons 01/31/17 19:23 Active Consult to Case Management [CONS] Routine Cons 01/31/17 18:57 Active Consult to Physician [CONS] Routine Cons 01/31/17 18:57 Active Regular Diet [DIET] Diet 01/31/17 Dinner Active BASIC METABOLIC PANEL,BMP [CHEM] AM Lab 02/01/17 05:11 Ordered BASIC METABOLIC PANEL,BMP [CHEM] AM Lab 02/02/17 05:11 Ordered BASIC METABOLIC PANEL,BMP [CHEM] AM Lab 02/03/17 05:11 Ordered BASIC METABOLIC PANEL,BMP [CHEM] AM Lab 02/04/17 05:11 Ordered CBC WITH AUTO DIFF [HEME] AM Lab 02/01/17 05:11 Ordered CBC WITH AUTO DIFF [HEME] AM Lab 02/02/17 05:11 Ordered CBC WITH AUTO DIFF [HEME] AM Lab 02/03/17 05:11 Ordered CBC WITH AUTO DIFF [HEME] AM Lab 02/04/17 05:11 Ordered INR,PT,PROTHROMBIN TIME [COAG] AM Lab 02/01/17 05:11 Ordered INR,PT,PROTHROMBIN TIME [COAG] AM Lab 02/02/17 05:11 Ordered INR,PT,PROTHROMBIN TIME [COAG] AM Lab 02/03/17 05:11 Ordered INR,PT,PROTHROMBIN TIME [COAG] AM Lab 02/04/17 05:11 Ordered MAGNESIUM [CHEM] AM Lab 02/01/17 05:11 Ordered MAGNESIUM [CHEM] AM Lab 02/02/17 05:11 Ordered MAGNESIUM [CHEM] AM Lab 02/03/17 05:11 Ordered MAGNESIUM [CHEM] AM Lab 02/04/17 05:11 Ordered Acetaminophen [Tylenol] Med 01/31/17 18:57 Active 650 mg PO Q4H PRN Albuterol/Ipratropium [DuoNeb 3.0-0.5 MG/3 ML] Med 01/31/17 18:57 Active 3 ml NEB Q4H PRN Enoxaparin [Lovenox] Med 01/31/17 21:00 Active 120 mg SUBCUT Q12HR Folic Acid Med 02/01/17 09:00 Active 1 mg PO DAILY LORazepam [Ativan] Med 01/31/17 19:07 Active 1 mg IVPUSH Q4H PRN LORazepam [Ativan] Med 01/31/17 19:05 Active 2 mg IVPUSH Q4H PRN Multivitamins,Therapeutic [Thera] Med 01/31/17 19:30 Active 1 each PO DAILY Nicotine [Habitrol] Med 01/31/17 19:00 Active 21 mg TRDERM DAILY Ondansetron [Zofran ODT] Med 01/31/17 18:57 Active 4 mg PO Q6H PRN Ondansetron [Zofran] Med 01/31/17 18:57 Active 4 mg IV Q6H PRN QUEtiapine [SEROquel] Med 02/01/17 09:00 Active 25 mg PO DAILY QUEtiapine [SEROquel] Med 01/31/17 21:00 Once 50 mg PO BEDTIME ONE Thiamine [Vitamin B-1] Med 02/01/17 09:00 Active 100 mg PO DAILY Topiramate [Topamax] Med 02/01/17 09:00 Active 25 mg PO BID Topiramate [Topamax] Med 01/31/17 21:00 Once 50 mg PO BEDTIME ONE Warfarin Pharmacy to Dose [Pharmacy to Dose - Warfarin] Med 01/31/17 19:30 Pending 1 dose .XX ASDIRECTED chlordiazePOXIDE [Librium] Med 01/31/17 21:00 Once 100 mg PO BEDTIME ONE diphenhydrAMINE [Benadryl] Med 01/31/17 19:22 Active 50 mg PO BEDTIME PRN Antiembolic Hose [OM.PC] Per Unit Routine Oth 01/31/17 18:58 Ordered Precautions [COMM] Routine Oth 01/31/17 19:15 Ordered Resuscitation Status Routine Resus Stat 01/31/17 18:57 Ordered Medication Orders Acetaminophen (Tylenol) 650 mg PO Q4H PRN PRN Reason: Pain (Mild 1-3)/fever Albuterol/Ipratropium (Duoneb 3.0-0.5 Mg/3 Ml) 3 ml NEB Q4H PRN PRN Reason: Shortness Of Breath/wheezing Chlordiazepoxide HCl (Librium) 100 mg PO BEDTIME ONE Stop: 01/31/17 21:01 Diphenhydramine HCl (Benadryl) 50 mg PO BEDTIME PRN PRN Reason: Sleep Enoxaparin Sodium (Lovenox) 120 mg SUBCUT Q12HR [facility] Folic Acid (Folic Acid) 1 mg PO DAILY [facility] Sodium Chloride (Normal Saline) 1,000 mls @ 250 mls/hr IV ASDIRECTED [facility] Last Admin: 01/31/17 16:00 Dose: 250 mls/hr Lorazepam (Ativan) 0 mg IVPUSH ASDIRECTED PRN; Protocol PRN Reason: Anxiety Lorazepam (Ativan) 2 mg IVPUSH Q4H PRN PRN Reason: Seizures Lorazepam (Ativan) 1 mg IVPUSH Q4H PRN PRN Reason: Anxiety Multivitamins (Thera) 1 each PO DAILY [facility] Nicotine (Habitrol) 21 mg TRDERM DAILY [facility] Ondansetron HCl (Zofran Odt) 4 mg PO Q6H PRN PRN Reason: nausea, able to take PO Ondansetron HCl (Zofran) 4 mg IV Q6H PRN PRN Reason: Nausea/Vomiting Quetiapine Fumarate (Seroquel) 50 mg PO BEDTIME ONE Stop: 01/31/17 21:01 Quetiapine Fumarate (Seroquel) 25 mg PO DAILY [facility] Sodium Chloride (Saline Flush) 10 ml FLUSH ASDIRECTED PRN PRN Reason: Keep Vein Open Thiamine HCl (Vitamin B-1) 100 mg PO DAILY [facility] Topiramate (Topamax) 50 mg PO BEDTIME ONE Stop: 01/31/17 21:01 Topiramate (Topamax) 25 mg PO BID [facility] Warfarin Sodium (Pharmacy To Dose - Warfarin) 1 dose .XX ASDIRECTED [facility] Assessment/Plan Comment:: Assessment/Plan: Acute: ETOH Withdrawal Symptoms/DT - CIWA protocol: CIWA score is markedly elevated - Librium/Topamax/Seroquel - Hydralzine and IVP BB for HR/BP control - Ativan for Abortive Seizure and Withdrawal Symptoms - Tele-psych and SA consult Alcohol Abuse - Chronic - Ethyl Alcohol in ED 0.00 - Last consumed alcohol around 2300 on 01/30/17 - Risk factors: Unemployment and underlying Psych issues - He drinks heavily - reports 1L of vodka a day - CIWA Protocol as above - SA consult - Rehabilitation for drugs and ETOH in [place] 3 months ago Drug abuse - Chronic - Reports use of heroin and methamphetamine - Reports last used heroin around 01:00 on 01/31/17 - Reportedly uses IV heroin multiple times throughout day - Risk factors: Unemployment and underlying Psych issues - CIWA protocol as above - SA consult - Rehabilitation for drugs and ETOH in [place] 3 months ago Hx/o Poly-Substance Abuse - Regular use of methamphetamine, heroin, and ETOH - UDS: presumptive positive for benzodiazepine - Reports he regularly does not take his home medications when on illicit drugs - Counseled on Substance Abuse - SA/Psych consult Pulmonary embolism - Diagnosed with PE 3 days prior in ED - Left AMA before CTA results were in - Was started on lovenox and "some other" anticoagulant - INR 1.00 in ED - reports he has not taken lovenox since yesterday - Lovenox 120 BID - Warfarin 10mg now - pharmacy to dose in future - PT/INR daily - Peripheral vascular ultrasound was negative in ED Cellulitis - Noted redness/swelling/inflammation/pain to left posterior calf - Was placed on doxycycline 100mg for 10 days BID - continue Hypothyroidism - TSH 5.994 in ED - Free T4 ordered - Synthroid 200mcg in AM starting tomorrow - Will need f/u with PCP in 6-8 weeks to check levels and adjust dosage Chronic: Back pain 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" Anxiety - ativan, psych consult Depression - psych consult Schizophrenia -home meds, psych consult Hx/o prior suicide attempts Tobacco use disorder Plan: Admit to ICU MVI, Folic, Acid and Thiamine CIWA protocol Ativan for Abortive Seizure and Withdrawal Symptoms PRN meds for Withdrawal Symptoms Aspiration/Seizure Precautions SW/CM d/c planning SA/Psych consult Code Status: Full code
[2017-01-31] MEDS ORDERED: Metoprolol Tartrate 5 MG/5 ML SDV IVPUSH PRN (20:19)
[2017-01-31] MEDS ORDERED: hydrALAZINE 20 MG/ML SDV IVPUSH PRN (20:19)
[2017-01-31] MEDS ORDERED: QUEtiapine 25 MG Tab PO ONE (21:00)
[2017-01-31] MEDS ORDERED: Topiramate 100 MG Tab PO ONE (21:00)
[2017-01-31] MEDS: Doxycycline 100 MG Cap PO SCH (21:15)
[2017-01-31] MEDS: Famotidine 20 MG Tab PO SCH (21:15)
[2017-02-01] MEDS: Sodium Chloride 0.9% 1,000 ML IV SCH ×3 (00:16→08:15)
[2017-02-01] MEDS: LORazepam 2 MG/ML MDV IVPUSH PRN ×6 (04:25→20:17)
--- NOTE | 2017-02-01 07:22 | CR ---
Chest: Portable view of the chest was obtained. Comparison: Prior chest x-ray and chest CT of 01/27/17. Heart size and mediastinum are within normal limits for portable technique. Lungs are clear. Bony structures are grossly intact. Impression: 1. Nothing acute is seen on portable chest x-ray. Diagnostic code #1
--- NOTE | 2017-02-01 07:25 | PCM.PN ---
- General Info Date of Service: 02/01/17 Admission Dx/Problem (Free Text): Alcohol/Heroin use, Recent PE Subjective Update: Follow Up Functional Status: Reports: Pain Controlled, Tolerating Diet, Ambulating, Urinating. Denies: New Symptoms - Review of Systems General: Denies: Fever, Weakness, Fatigue, Malaise, Chills HEENT: Reports: No Symptoms Pulmonary: Denies: Shortness of Breath Cardiovascular: Denies: Chest Pain Gastrointestinal: Denies: Abdominal Pain, Nausea, Vomiting Genitourinary: Reports: No Symptoms Musculoskeletal: Reports: No Symptoms Skin: Reports: No Symptoms Neurological: Denies: Confusion, Tingling, Difficulty Walking, Gait Disturbance Psychiatric: Denies: Depression, Anxiety, Agitation, Hallucinations Systems Review Comment:: No overnight or acute issues. He slept pretty good. He denies being suicidal or homocidal. He is not as much as anxious as last not. His labs are unremarkable. - Patient Data Vitals - Most Recent: Last Vital Signs Temp 37.0 C 02/01/17 03:49 Pulse 73 02/01/17 03:49 Resp 18 02/01/17 03:49 BP 109/65 02/01/17 03:49 Pulse Ox 95 02/01/17 03:49 Weight - Most Recent: 115.212 kg I&O - Last 24 Hours: Intake & Output 01/31/17 02/01/17 02/01/17 22:59 06:59 14:59 Intake Total 240 Output Total 500 Balance -260 Lab Results Last 24 Hours: Laboratory Results - last 24 hr 02/01/17 Range/Units 06:00 WBC 6.70 (4.23-9.07) K/mm3 RBC 4.33 L (4.63-6.08) M/mm3 Hgb 11.7 L (13.7-17.5) gm/L Hct 37.0 L (40.1-51.0) % MCV 85.5 (79.0-92.2) fl MCH 27.0 (25.7-32.2) pg MCHC 31.6 L (32.2-35.5) g/dl RDW Std Deviation 51.8 H (35.1-43.9) fL Plt Count 269 (163-337) K/mm3 MPV 9.8 (9.4-12.3) fl Neut % (Auto) 35.8 (34.0-67.9) % Lymph % (Auto) 47.0 (21.8-53.1) % [place] % (Auto) 11.8 (5.3-12.2) % Eos % (Auto) 4.9 (0.8-7.0) Baso % (Auto) 0.4 (0.1-1.2) % Neut # (Auto) 2.39 (1.78-5.38) K/mm3 Lymph # (Auto) 3.15 (1.32-3.57) K/mm3 [place] # (Auto) 0.79 (0.30-0.82) K/mm3 Eos # (Auto) 0.33 (0.04-0.54) K/mm3 Baso # (Auto) 0.03 (0.01-0.08) K/mm3 Med Orders - Current: Current Medications Acetaminophen (Tylenol) 650 mg PO Q4H PRN PRN Reason: Pain (Mild 1-3)/fever Albuterol/Ipratropium (Duoneb 3.0-0.5 Mg/3 Ml) 3 ml NEB Q4H PRN PRN Reason: Shortness Of Breath/wheezing Aripiprazole (Abilify) 10 mg PO DAILY [facility] Diphenhydramine HCl (Benadryl) 50 mg PO BEDTIME PRN PRN Reason: Sleep Last Admin: 01/31/17 20:03 Dose: 50 mg Doxycycline Hyclate (Vibramycin) 100 mg PO BID [facility] Last Admin: 01/31/17 21:15 Dose: 100 mg Enoxaparin Sodium (Lovenox) 120 mg SUBCUT Q12HR [facility] Last Admin: 01/31/17 20:07 Dose: 120 mg Famotidine (Pepcid) 20 mg PO BID [facility] Last Admin: 01/31/17 21:15 Dose: 20 mg Folic Acid (Folic Acid) 1 mg PO DAILY [facility] Hydralazine HCl (Apresoline) 10 mg IVPUSH Q6H PRN PRN Reason: Hypertension Sodium Chloride (Normal Saline) 1,000 mls @ 250 mls/hr IV ASDIRECTED [facility] Last Admin: 02/01/17 04:14 Dose: 250 mls/hr Levothyroxine Sodium (Levothyroxine) 200 mcg PO ACBREAKFAST [facility] Last Admin: 02/01/17 06:25 Dose: 200 mcg Lorazepam (Ativan) 0 mg IVPUSH ASDIRECTED PRN; Protocol PRN Reason: Anxiety Last Admin: 02/01/17 04:25 Dose: 1 mg Lorazepam (Ativan) 2 mg IVPUSH Q4H PRN PRN Reason: Seizures Lorazepam (Ativan) 1 mg IVPUSH Q4H PRN PRN Reason: Anxiety Magnesium Sulfate (Pharmacy To Dose - Magnesium Replacement) 1 dose .XX ASDIRECTED PRN PRN Reason: RX TO WATCH MAG LEVELS Metoprolol Tartrate (Lopressor) 5 mg IVPUSH Q4H PRN PRN Reason: Tachycardia Multivitamins (Thera) 1 each PO DAILY [facility] Last Admin: 01/31/17 20:00 Dose: 1 each Nicotine (Habitrol) 21 mg TRDERM DAILY [facility] Last Admin: 01/31/17 20:10 Dose: 21 mg Ondansetron HCl (Zofran Odt) 4 mg PO Q6H PRN PRN Reason: nausea, able to take PO Ondansetron HCl (Zofran) 4 mg IV Q6H PRN PRN Reason: Nausea/Vomiting Potassium Chloride (Pharmacy To Dose - Potassium Replacement) 1 dose .XX ASDIRECTED PRN PRN Reason: RX TO WATCH K LEVELS Quetiapine Fumarate (Seroquel) 25 mg PO DAILY [facility] Sodium Chloride (Saline Flush) 10 ml FLUSH ASDIRECTED PRN PRN Reason: Keep Vein Open Thiamine HCl (Vitamin B-1) 100 mg PO DAILY [facility] Topiramate (Topamax) 25 mg PO BID [facility] Venlafaxine HCl (Effexor Xr) 150 mg PO DAILY [facility] Warfarin Sodium (Pharmacy To Dose - Warfarin) 1 dose .XX ASDIRECTED [facility] Discontinued Medications Chlordiazepoxide HCl (Librium) Confirm Administered Dose 50 mg .ROUTE .STK-MED ONE Stop: 01/31/17 15:14 Last Admin: 01/31/17 18:04 Dose: Not Given Chlordiazepoxide HCl (Librium) 50 mg PO ONETIME ONE Stop: 01/31/17 14:49 Last Admin: 01/31/17 15:00 Dose: 50 mg Chlordiazepoxide HCl (Librium) 100 mg PO BEDTIME ONE Stop: 01/31/17 21:01 Last Admin: 01/31/17 20:01 Dose: 100 mg Enoxaparin Sodium (Lovenox) 120 mg SUBCUT DAILY [facility] Folic Acid (Folic Acid) Confirm Administered Dose 1 mg .ROUTE .STK-MED ONE Stop: 01/31/17 15:15 Last Admin: 01/31/17 18:04 Dose: Not Given Folic Acid (Folic Acid) 1 mg PO ONETIME ONE Stop: 01/31/17 14:51 Last Admin: 01/31/17 15:00 Dose: 1 mg Sodium Chloride (Normal Saline) Confirm Administered Dose 1,000 mls @ as directed .ROUTE .STK-MED ONE Stop: 01/31/17 15:14 Last Admin: 01/31/17 18:05 Dose: Not Given Sodium Chloride (Normal Saline) Confirm Administered Dose 1,000 mls @ as directed .ROUTE .STK-MED ONE Stop: 01/31/17 16:36 Last Admin: 01/31/17 15:00 Dose: 1,000 ml Lorazepam (Ativan) Confirm Administered Dose 2 mg .ROUTE .STK-MED ONE Stop: 01/31/17 15:14 Last Admin: 01/31/17 18:07 Dose: Not Given Lorazepam (Ativan) 2 mg IVPUSH ONETIME ONE Stop: 01/31/17 14:51 Last Admin: 01/31/17 15:20 Dose: 2 mg Quetiapine Fumarate (Seroquel) 50 mg PO BEDTIME ONE Stop: 01/31/17 21:01 Last Admin: 01/31/17 20:00 Dose: 50 mg Thiamine HCl (Vitamin B-1) Confirm Administered Dose 100 mg .ROUTE .STK-MED ONE Stop: 01/31/17 15:13 Last Admin: 01/31/17 18:05 Dose: Not Given Thiamine HCl (Vitamin B-1) 100 mg PO ONETIME ONE Stop: 01/31/17 14:51 Last Admin: 01/31/17 15:00 Dose: 100 mg Topiramate (Topamax) 50 mg PO BEDTIME ONE Stop: 01/31/17 21:01 Last Admin: 01/31/17 20:02 Dose: 50 mg Warfarin Sodium (Coumadin) 10 mg PO ONETIME ONE Stop: 01/31/17 19:27 Last Admin: 01/31/17 20:02 Dose: 10 mg - Exam General: Alert, Oriented, Cooperative, No Acute Distress HEENT: Pupils Equal, Pupils Reactive, EOMI, Mucous Membr. Moist/[place] Neck: Supple, Trachea Midline Lungs: Clear to Auscultation, Normal Respiratory Effort Cardiovascular: Regular Rate, Regular Rhythm GI/Abdominal Exam: Normal Bowel Sounds, Soft, Non-Tender, No Organomegaly, No Distention, No Abnormal Bruit, No Mass (Male) Exam: Deferred Back Exam: Normal Inspection, Full Range of Motion Extremities: Normal Inspection, Normal Range of Motion, Non-Tender, No Pedal Edema, Normal Capillary Refill Peripheral Pulses: 2+: Posterior Tibial (L), Posterior Tibial (R), Dorsalis Pedis (L), Dorsalis Pedis (R) Skin: Warm, Dry, Intact, Other (multiple tattoos) Neurological: No New Focal Deficit Psy/Mental Status: Normal Affect, Anxious. No: Suicidal Ideation, Homicidal Ideation, Hallucinations, Withdrawal Symptoms - Problem List Review Problem List Initiated/Reviewed/Updated: Yes - Plan Plan:: Assessment/Plan: Acute: ETOH Withdrawal Symptoms/DT - CIWA protocol: CIWA score is moderately elevated - Librium/Topamax/Seroquel - Hydralzine and IVP BB for HR/BP control - Ativan for Abortive Seizure and Withdrawal Symptoms - Tele-psych and SA consult Alcohol Abuse - Chronic - Ethyl Alcohol in ED 0.00 - Last consumed alcohol around 2300 on 01/30/17 - Risk factors: Unemployment and underlying Psych issues - He drinks heavily - reports 1L of vodka a day - CIWA Protocol as above - SA consult - Rehabilitation for drugs and ETOH in [place] 3 months ago Drug Abuse - Chronic - Reports use of heroin and methamphetamine - Reports last used heroin around 01:00 on 01/31/17 - Reportedly uses IV heroin multiple times throughout day - Risk factors: Unemployment and underlying Psych issues - CIWA protocol as above - SA consult - Rehabilitation for drugs and ETOH in [place] 3 months ago Hx/o Poly-Substance Abuse - Regular use of methamphetamine, heroin, and ETOH - UDS: presumptive positive for benzodiazepine - Reports he regularly does not take his home medications when on illicit drugs - Counseled on Substance Abuse - SA/Psych consult Recent Pulmonary Embolism W/ Subtherapeutic INR - Diagnosed with PE 3 days prior in ED - Left AMA before CTA results were in - Was started on lovenox and "some other" anticoagulant - INR 1.00 in ED - reports he has not taken lovenox since yesterday - Lovenox 120 BID; Warfarin 10mg now - pharmacy to dose in future - PT/INR daily - Peripheral vascular ultrasound was negative in ED Cellulitis - Noted redness/swelling/inflammation/pain to left posterior calf - Was placed on doxycycline 100mg for 10 days BID - continue Hypothyroidism - This is subclinical; usually do not require treatment - TSH 5.994 in ED - Free T4 is 0.84 normal - D/c Synthroid 200 mcg daily - Follow up outpatient with PCP Chronic: Back pain 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
[2017-02-01] MEDS: Multivitamins,Therapeutic Tab PO SCH (08:24)
[2017-02-01] MEDS: Doxycycline 100 MG Cap PO SCH ×2 (08:24→20:16)
[2017-02-01] MEDS: Famotidine 20 MG Tab PO SCH ×2 (08:24→20:17)
[2017-02-01] MEDS: Venlafaxine 75 MG Cap.ER PO SCH (08:24)
[2017-02-01] MEDS: Folic Acid 1 MG Tab PO SCH (08:24)
[2017-02-01] MEDS: Topiramate 25 MG Tab PO SCH ×2 (08:24→20:16)
[2017-02-01] MEDS: Thiamine 100 MG Tab PO SCH (08:25)
[2017-02-01] MEDS: Nicotine 21 MG/24 Hr Patch TRDERM SCH (08:33)
[2017-02-01] MEDS: Enoxaparin 120 MG/0.8 ML Syringe SUBCUT SCH ×2 (08:46→20:31)
[2017-02-01] MEDS ORDERED: QUEtiapine 25 MG Tab PO SCH (09:00)
[2017-02-01] MEDS ORDERED: ARIPiprazole 10 MG Tab PO SCH (09:00)
[2017-02-01] MEDS: chlordiazePOXIDE 25 MG Cap PO SCH ×2 (15:42→20:16)
[2017-02-01] MEDS ORDERED: Warfarin 10 MG Tab PO ONE (18:00)
[2017-02-01] MEDS ORDERED: cloNIDine 0.1 MG Tab PO PRN (18:09)
[2017-02-01] MEDS: diphenhydrAMINE 50 MG Cap PO PRN (20:15)
[2017-02-01] MEDS: QUEtiapine 100 MG Tab PO SCH (20:16)
[2017-02-01] MEDS ORDERED: LORazepam 2 MG/ML MDV IVPUSH ONE (21:32)
[2017-02-01] MEDS ORDERED: diphenhydrAMINE 50 MG/ML SDV IVPUSH ONE (21:32)
--- NOTE | 2017-02-01 23:51 | CONS ---
CONSULTING PHYSICIAN: Jamari Howard MD DATE OF CONSULTATION: 02/01/2017 IDENTIFICATION: The patient is a 21-year-old male who is admitted to the inpatient MICU at [facility] in [place], [place] on 01/31/2017. He is seen for psychiatric evaluation. CHIEF COMPLAINT: "Drugs. I have had an ongoing heroin addiction, that I have tried everything to break from...I need to get clean." HISTORY OF PRESENT ILLNESS: The patient is a 21-year-old male who reports he has been using heroin "daily since I was 14 years old." He states he has been most recently using an IV. He states he has also been using "alcohol and meth" and he last used about 2 days ago and he is wanting to get clean. The patient is desiring of going into some type of 12-step program because he states he went to an inpatient chemical dependency treatment recently, "that has made things worse. There were too many people there that gave me more contacts to use" and actually help him stay sober. The patient also reports that complicating his clinical picture is that he has a diagnosis of schizophrenia, paranoid type, and he does endorse symptoms of increasing paranoia and auditory hallucinations. He states he is hearing "inside my head." The patient is also having racing thoughts and ruminations to the point of distraction. He feels depressed, he feels guilty, he has anxiety, and he is increasingly isolative. He denies any suicidal or homicidal at this point in time, but does want help. MEDICATIONS: At the time of presentation: 1. Effexor XR 150 mg daily. 2. Abilify 10 mg q.h.s. 3. Seroquel 400 mg b.i.d. 4. Lyrica 300 mg daily. 5. Doxycycline 100 mg b.i.d. 6. Valium 5 mg q.h.s. ALLERGIES: No known drug allergies. PAST MEDICAL HISTORY: History of DVTs. REVIEW OF SYSTEMS: Aside from cardiovascular, all other major organ systems are negative at this point in time for acute difficulties or complications. FAMILY PSYCHIATRIC AND CD HISTORY: The patient had a history of schizophrenia. PAST PSYCHIATRIC AND CD HISTORY: The patient reports 7 psychiatric hospitalizations, last one being in December 2016 at [facility] in [place], [place]. He reports 1 chemical dependency treatment in the past that did not go well for him and he left before completing the treatment. He began using heroin at 14 years of age. His longest sobriety since that time has been 1 week. He also uses meth and alcohol regularly. He reports 3 suicide attempts, 2 by overdose and 1 by cutting wrist. Last suicide attempt was in October 2016. The patient has engaged in self- injurious behaviors in the past. PAST PSYCHIATRIC DIAGNOSIS: Includes schizophrenia, paranoid type; depression; and anxiety. SOCIAL HISTORY: The patient was born in [place], [place], raised in [place], [place]. He is a 5th of 10 siblings and 5 brothers and 4 sisters. The patient's biological parents were throughout his childhood and adolescence. Father is an [id number] specialty food products supervisor. Mother is a homemaker. The patient's highest level of education is 11th grade. The patient has been on SSDI for 1 year for his mental health issues. He has been x1 until 1 year. His is unaccompanied. He and his are expecting their first child. The patient has been living in [place], [place] by himself in the past 2 months after moving up from [place]. His is in [place] right now and he is planning to go meet her when he gets sober. He denies any prior service or any current legal difficulties. He is [employer] in terms of his ellen formation. He enjoys listening to the Spot[employer]. MENTAL STATUS EXAM: The patient is a 21-year-old soft-spoken white male in no apparent distress. Speech is of regular rate and rhythm. The patient is cognitively oriented x3. Psychomotor activity is within normal limits. There is no abnormal motor movements or tics observed. Gait and station are not observed. This patient is lying in bed for the entirety of the inpatient consult. Mood is depressed. Affect is consistent with stated mood and restricted. There is no behavioral or stated evidence of acute suicidal or homicidal ideation. Thought content is significant for non-command type auditory hallucinations as well as paranoid themes. Thought processes are significant for racing thoughts and ruminations. There are no acute manic symptoms, loose associations evident. Judgment and insight appear unimpaired at this point in time. Motivation for help is good. VITALS: 103/55, 69, 18, 98 degrees. IMPRESSION: [place] I. 1. Polysubstance dependence F19.20. 2. Alcohol dependence F10.20. 3. Methamphetamine dependence F15.20. 4. Opioid dependence. 5. Schizophrenia of paranoid type F20. 6. Major depressive disorder, severe F33.3. 7. Anxiety disorder, NOS, F41.9. [place] II: None. Herm[place] III: 1. History of deep vein thrombosis. [place] IV: Severe. [place] V: 55. PLAN: 1. Chemical dependency consult. 2. AA rep. 3. Pastoral guidance. 4. Discontinue Abilify. 5. Folic acid supplementation. 6. Thiamine supplementation. 7. Begin trial of Seroquel 400 mg b.i.d. for treatment of psychotic symptoms, mood stability, anxiety reduction, sleep initiation and maintenance. 8. Begin Effexor XR 150 mg daily for mood. 9. [facility] protocol. 10.Librium 25 mg t.i.d. 11.Topamax 25 mg b.i.d. for mood stability, anxiety reduction, and seizure prophylaxis. 12.Once the patient is medically stabilized, recommend 12-step treatment program. 13.The patient will follow up with Outpatient Psychiatry and medically stabilized and discharged back to community. 14.Sobriety. 15.We will continue follow up with the patient on a regular basis as needed while he remains on the inpatient medical unit. 16.We will follow up with the patient sooner if any complications in the interim. 17.Crisis plan is in place. DENIS /[id number]
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
--- NOTE | 2017-02-02 07:04 | PCM.DCSUM1 ---
Discharge Summary - Hospital Course Free Text/Narrative:: Rubén Solis is a 21 yo male who presents to our ED today (01/31/17) looking for help with drug and alcohol abuse. He reportedly drinks 1 L of vodka a day and uses IV heroin heavily. Last heroin use was around 01:00 last night. Last alcohol use was around 11:00 last night. He reports he has been detoxed off. In the past with no issues, although has never been detoxed off alcohol. Does have a history of seizures with overdosing. Reportedly his been on drugs and alcohol since age of 14. Has a history of self cutting in attempting suicide 3. He reportedly slit his wrists once an overdose twice. Currently denies any suicidal or homicidal ideations. Denies any hallucinations. He was diagnosed with a PE 3 days ago and placed on Lovenox along with another anticoagulant. He is unsure which one, we suspect warfarin. He has swelling and pain to the posterior aspect of his left calf. He was placed on doxycycline while in the ED for this. He does not work. He was reportedly incarcerated for 1 year for salt. He's undergone rehabilitation for drugs and alcohol 3 months ago in [place]. He's reportedly undergone psych evaluation 8 times as an inpatient. His last evaluation was 2 months ago in [place]. He does have speech problems which she reports are from "childhood trauma". As of a history of anxiety, bipolar, depression, schizophrenia, suicide attempts, suicidal ideations. He also has chronic back pain. He is a current every day smoker. He also reports heroin and methamphetamine use daily. In the ED temp is 98.5. Pulse was 101. Respirations 21. Blood pressure 120/ 58. Pulse ox 100% on room air. Labs are obtained: WBC is slightly elevated at 9.57. Hemoglobin 15.4. Hematocrit 46.9. He has normocytic. Sodium is 140. Potassium 4.1. Chloride 101. Carbon dioxide 30. Anion gap normal at 13.1. BUN 14. Creatinine 0.9. EGFR is greater than 60. Glucose is 80. Calcium 9.5. Magnesium 2.2. Bilirubin 0.3. AST is low at 12. ALT is 44. Alkaline phosphatase 112. Troponin is negative at less than 0.017. Albumin 3.9. TSH is high at 5.994. PT is 10.9. INR is 1.0. UA is negative although one plus protein and trace ketones are noted. UDS was presumptive positive for benzodiazepines. Ethanol alcohol was 0.00. He was given Librium 50 mg, folic acid 1 mg, Ativan 2 mg, and as bolus, thiamine 100 mg in the ED. See while protocols were initiated. EKG sinus sinus rhythm at a rate of [address]. surgical services assistant was consulted on the patient. He subsequently admitted to the ICU. He is a full code. He reports he sees a nurse practitioner in [place], which is where he lives, although he does not know his name. - Discharge Data Discharge Date: 02/02/17 (admit date 01/31/17) Discharge Disposition: DC/Tfer to Inpt Rehab Fac 62 Condition: Good - Patient Summary/Data Operative Procedure(s) Performed: None Complications: None Consults: Consultations 01/31/17 18:57 Consult to Case Management [CONS] Routine Consult to Physician [CONS] Routine 01/31/17 19:23 Consult for Substance Abuse [CONS] Routine Labs Pending at D/C: None Recommended Follow-up Testing/Procedures: AA, NA and Addiction Counselor; also follow up with Dr. Howard, Psychiatrist when DC'd from [facility] Follow up/establish care with PCP when DC'd from [facility] INR tomorrow to follow lovenox/coumadin dosing adjustments. Can DC lovenox when INR is therapeutic at 2-3 for PE. Planned Operative Procedure(s) after DC: None Hospital Course: Assessment/Plan: Acute: ETOH Withdrawal Symptoms/DT - [facility] protocol - Librium - Hydralzine and IVP BB for HR/BP control - Ativan for Abortive Seizure and Withdrawal Symptoms - Tele-psych and SA consult Alcohol Abuse - Chronic - Ethyl Alcohol in ED 0.00 - Last consumed alcohol around 2300 on 01/30/17 - Risk factors: Unemployment and underlying Psych issues - He drinks heavily - reports 1L of vodka a day - CIWA Protocol as above - SA consult - Rehabilitation for drugs and ETOH in [place] 3 months ago Drug Abuse - Chronic - Reports use of heroin and methamphetamine - Reports last used heroin around 01:00 on 01/31/17 - Reportedly uses IV heroin multiple times throughout day - Risk factors: Unemployment and underlying Psych issues - CIWA protocol as above - SA consult - Rehabilitation for drugs and ETOH in [place] 3 months ago Hx/o Poly-Substance Abuse - Regular use of methamphetamine, heroin, and ETOH - UDS: presumptive positive for benzodiazepine - Reports he regularly does not take his home medications when on illicit drugs - Counseled on Substance Abuse - SA/Psych consult Recent Pulmonary Embolism W/ Subtherapeutic INR - Diagnosed with PE 3 days prior in ED - Left AMA before CTA results were in - Was started on lovenox and "some other" anticoagulant - INR 1.00 in ED - reports he has not taken lovenox since yesterday - Lovenox 120 BID; Warfarin 10mg now - pharmacy to dose in future - PT/INR daily----INR on day of discharge is 1.13---recommend INR of 2-3 then will be safe to DC lovenox SQ - Peripheral vascular ultrasound was negative in ED Cellulitis - Noted redness/swelling/inflammation/pain to left posterior calf - Was placed on doxycycline 100mg for 10 days BID - continue Hypothyroidism - This is subclinical; usually do not require treatment - TSH 5.994 in ED - Free T4 is 0.84 normal - D/c Synthroid 200 mcg daily - Follow up outpatient with PCP Chronic: Back pain 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" Anxiety - ativan, psych consult Depression - psych consult Schizophrenia -home meds, psych consult Hx/o prior suicide attempts Tobacco use disorder Plan: He is clinically stable Continue current treatment: MVI, Folic Acid, Thiamine and CIWA protocol Ativan for Abortive Seizure and Withdrawal Symptoms PRN meds for Withdrawal Symptoms Seizure Precautions / d/c planning---[facility] was up to screen patient, [place] for transport and DC today to [facility] SA/Psych consult Code Status: Full code - Patient Instructions Diet: Usual Diet as Tolerated, Drink 8-10+ Glasses/Day Activity: As Tolerated Driving: Do Not Drive Notify Provider of: Fever, Increased Pain, Nausea and/or Vomiting - Discharge Plan Prescriptions/Med Rec: Enoxaparin [Lovenox] 120 mg SUBCUT Q12HR #4 syringe chlordiazePOXIDE [Librium] 25 mg PO TID #15 cap Doxycycline [Vibramycin] 100 mg PO BID #10 cap Levothyroxine [Synthroid] 200 mcg PO ACBREAKFAST #30 tablet Warfarin Pharmacy to Dose [Pharmacy to Dose - Warfarin] 5 mg PO ASDIRECTED #10 each Home Medications: Home Meds Seroquel 400 mg PO BID 12/17/16 [History] Venlafaxine [Effexor XR] 150 mg PO DAILY 01/20/17 [History] Doxycycline [Vibramycin] 100 mg PO BID #10 cap 02/02/17 [Rx] Enoxaparin [Lovenox] 120 mg SUBCUT Q12HR #4 syringe 02/02/17 [Rx] Famotidine [Pepcid] 20 mg PO BID tablet 02/02/17 [Rx] Folic Acid 1 mg PO DAILY tablet 02/02/17 [Rx] Levothyroxine [Synthroid] 200 mcg PO ACBREAKFAST #30 tablet 02/02/17 [Rx] Multivitamins,Therapeutic [Thera] 1 each PO DAILY tablet 02/02/17 [Rx] Nicotine [Habitrol] 21 mg TRDERM DAILY patch 02/02/17 [Rx] Thiamine [Vitamin B-1] 100 mg PO DAILY tablet 02/02/17 [Rx] Topiramate [Topamax] 25 mg PO BID tablet 02/02/17 [Rx] Warfarin Pharmacy to Dose [Pharmacy to Dose - Warfarin] 5 mg PO ASDIRECTED #10 each 02/02/17 [Rx] chlordiazePOXIDE [Librium] 25 mg PO TID #15 cap 02/02/17 [Rx] Patient Handouts: Smoking Cessation, Tips for Success, [id number], Chemical Dependency, Substance Use Disorder, Alcohol Withdrawal, [id number], Cellulitis , Adult, Pulmonary Embolism Referrals: Jamari Howard MD [Physician] - (Follow-up with outpatient psychiatrist. [phone] to make appt.) PCP,Not In Area [Primary Care Provider] - - Discharge Summary/Plan Comment DC Time >30 min.: Yes (40 min) - General Info Date of Service: 02/02/17 Admission Dx/Problem (Free Text: Alcohol/Heroin use, Recent PE - Review of Systems General: Reports: No Symptoms HEENT: Reports: No Symptoms Pulmonary: Reports: No Symptoms Cardiovascular: Reports: No Symptoms Gastrointestinal: Reports: No Symptoms Genitourinary: Reports: No Symptoms Musculoskeletal: Reports: No Symptoms Skin: Reports: No Symptoms Neurological: Reports: No Symptoms Psychiatric: Reports: Anxiety - Patient Data Vitals - Most Recent: Last Vital Signs Temp 97.5 F 02/02/17 02:59 Pulse 66 02/02/17 02:59 Resp 16 02/02/17 02:59 BP 115/64 02/02/17 02:59 Pulse Ox 97 02/02/17 02:59 Weight - Most Recent: 257 lb 4.8 oz I&O - Last 24 hours: Intake & Output 02/01/17 02/02/17 02/02/17 22:59 06:59 14:59 Intake Total 900 300 Output Total 600 Balance 300 300 Lab Results - Last 24 hrs: Laboratory Results - last 24 hr 02/01/17 02/01/17 02/02/17 Range/Units 06:00 06:00 05:15 WBC 6.14 (4.23-9.07) K/mm3 RBC 4.60 L (4.63-6.08) M/mm3 Hgb 12.4 L (13.7-17.5) gm/L Hct 38.6 L (40.1-51.0) % MCV 83.9 (79.0-92.2) fl MCH 27.0 (25.7-32.2) pg MCHC 32.1 L (32.2-35.5) g/dl RDW Std Deviation 49.9 H (35.1-43.9) fL Plt Count 278 (163-337) K/mm3 MPV 9.8 (9.4-12.3) fl Neut % (Auto) 39.2 (34.0-67.9) % Lymph % (Auto) 42.2 (21.8-53.1) % [place] % (Auto) 11.4 (5.3-12.2) % Eos % (Auto) 6.7 (0.8-7.0) Baso % (Auto) 0.3 (0.1-1.2) % Neut # (Auto) 2.41 (1.78-5.38) K/mm3 Lymph # (Auto) 2.59 (1.32-3.57) K/mm3 [place] # (Auto) 0.70 (0.30-0.82) K/mm3 Eos # (Auto) 0.41 (0.04-0.54) K/mm3 Baso # (Auto) 0.02 (0.01-0.08) K/mm3 PT 10.4 (8.0-13.0) SECONDS INR 0.96 Sodium 142 (136-145) mEq/L Potassium 3.5 (3.5-5.1) mEq/L Chloride 109 H (98-107) mEq/L Carbon Dioxide 25 (21-32) mEq/L Anion Gap 11.5 (5-15) BUN 18 (7-18) mg/dL Creatinine 0.8 (0.7-1.3) mg/dL Est Cr Clr Drug Dosing 195.21 mL/min Estimated GFR (MDRD) > 60 (>60) mL/min BUN/Creatinine Ratio 22.5 H (14-18) Glucose 88 (74-106) mg/dL Calcium 8.1 L (8.5-10.1) mg/dL Magnesium 1.9 (1.8-2.4) mg/dl 02/02/17 02/02/17 Range/Units 05:15 05:15 WBC (4.23-9.07) K/mm3 RBC (4.63-6.08) M/mm3 Hgb (13.7-17.5) gm/L Hct (40.1-51.0) % MCV (79.0-92.2) fl MCH (25.7-32.2) pg MCHC (32.2-35.5) g/dl RDW Std Deviation (35.1-43.9) fL Plt Count (163-337) K/mm3 MPV (9.4-12.3) fl Neut % (Auto) (34.0-67.9) % Lymph % (Auto) (21.8-53.1) % [place] % (Auto) (5.3-12.2) % Eos % (Auto) (0.8-7.0) Baso % (Auto) (0.1-1.2) % Neut # (Auto) (1.78-5.38) K/mm3 Lymph # (Auto) (1.32-3.57) K/mm3 [place] # (Auto) (0.30-0.82) K/mm3 Eos # (Auto) (0.04-0.54) K/mm3 Baso # (Auto) (0.01-0.08) K/mm3 PT 12.4 (8.0-13.0) SECONDS INR 1.13 Sodium 142 (136-145) mEq/L Potassium 3.6 (3.5-5.1) mEq/L Chloride 108 H (98-107) mEq/L Carbon Dioxide 24 (21-32) mEq/L Anion Gap 13.6 (5-15) BUN 12 (7-18) mg/dL Creatinine 0.8 (0.7-1.3) mg/dL Est Cr Clr Drug Dosing 195.21 mL/min Estimated GFR (MDRD) > 60 (>60) mL/min BUN/Creatinine Ratio 15.0 (14-18) Glucose 84 (74-106) mg/dL Calcium 8.5 (8.5-10.1) mg/dL Magnesium 2.1 (1.8-2.4) mg/dl Med Orders - Current: Current Medications Acetaminophen (Tylenol) 650 mg PO Q4H PRN PRN Reason: Pain (Mild 1-3)/fever Albuterol/Ipratropium (Duoneb 3.0-0.5 Mg/3 Ml) 3 ml NEB Q4H PRN PRN Reason: Shortness Of Breath/wheezing Chlordiazepoxide HCl (Librium) 25 mg PO TID [facility] Last Admin: 02/01/17 20:16 Dose: 25 mg Clonidine HCl (Catapres) 0.1 mg PO Q4H PRN PRN Reason: Agitation Diphenhydramine HCl (Benadryl) 50 mg PO BEDTIME PRN PRN Reason: Sleep Last Admin: 02/01/17 20:15 Dose: 50 mg Doxycycline Hyclate (Vibramycin) 100 mg PO BID [facility] Last Admin: 02/01/17 20:16 Dose: 100 mg Enoxaparin Sodium (Lovenox) 120 mg SUBCUT Q12HR [facility] Last Admin: 02/01/17 20:31 Dose: 120 mg Famotidine (Pepcid) 20 mg PO BID [facility] Last Admin: 02/01/17 20:17 Dose: 20 mg Folic Acid (Folic Acid) 1 mg PO DAILY [facility] Last Admin: 02/01/17 08:24 Dose: 1 mg Hydralazine HCl (Apresoline) 10 mg IVPUSH Q6H PRN PRN Reason: Hypertension Levothyroxine Sodium (Levothyroxine) 200 mcg PO ACBREAKFAST [facility] Last Admin: 02/02/17 05:37 Dose: 200 mcg Lorazepam (Ativan) 0 mg IVPUSH ASDIRECTED PRN; Protocol PRN Reason: Anxiety Last Admin: 02/01/17 20:17 Dose: 2 mg Lorazepam (Ativan) 2 mg IVPUSH Q4H PRN PRN Reason: Seizures Lorazepam (Ativan) 1 mg IVPUSH Q4H PRN PRN Reason: Anxiety Last Admin: 02/01/17 16:14 Dose: 1 mg Magnesium Sulfate (Pharmacy To Dose - Magnesium Replacement) 1 dose .XX ASDIRECTED PRN PRN Reason: RX TO WATCH MAG LEVELS Metoprolol Tartrate (Lopressor) 5 mg IVPUSH Q4H PRN PRN Reason: Tachycardia Multivitamins (Thera) 1 each PO DAILY [facility] Last Admin: 02/01/17 08:24 Dose: 1 each Nicotine (Habitrol) 21 mg TRDERM DAILY [facility] Last Admin: 02/01/17 08:33 Dose: 21 mg Ondansetron HCl (Zofran Odt) 4 mg PO Q6H PRN PRN Reason: nausea, able to take PO Ondansetron HCl (Zofran) 4 mg IV Q6H PRN PRN Reason: Nausea/Vomiting Potassium Chloride (Pharmacy To Dose - Potassium Replacement) 1 dose .XX ASDIRECTED PRN PRN Reason: RX TO WATCH K LEVELS Quetiapine Fumarate (Seroquel) 400 mg PO BID [facility] Last Admin: 02/01/17 20:16 Dose: 400 mg Sodium Chloride (Saline Flush) 10 ml FLUSH ASDIRECTED PRN PRN Reason: Keep Vein Open Thiamine HCl (Vitamin B-1) 100 mg PO DAILY [facility] Last Admin: 02/01/17 08:25 Dose: 100 mg Topiramate (Topamax) 25 mg PO BID [facility] Last Admin: 02/01/17 20:16 Dose: 25 mg Venlafaxine HCl (Effexor Xr) 150 mg PO DAILY [facility] Last Admin: 02/01/17 08:24 Dose: 150 mg Warfarin Sodium (Pharmacy To Dose - Warfarin) 1 dose .XX ASDIRECTED [facility] Discontinued Medications Aripiprazole (Abilify) 10 mg PO DAILY [facility] Last Admin: 02/01/17 08:24 Dose: 10 mg Chlordiazepoxide HCl (Librium) Confirm Administered Dose 50 mg .ROUTE .STK-MED ONE Stop: 01/31/17 15:14 Last Admin: 01/31/17 18:04 Dose: Not Given Chlordiazepoxide HCl (Librium) 50 mg PO ONETIME ONE Stop: 01/31/17 14:49 Last Admin: 01/31/17 15:00 Dose: 50 mg Chlordiazepoxide HCl (Librium) 100 mg PO BEDTIME ONE Stop: 01/31/17 21:01 Last Admin: 01/31/17 20:01 Dose: 100 mg Diphenhydramine HCl (Benadryl) 25 mg IVPUSH ONETIME ONE Stop: 02/01/17 21:33 Last Admin: 02/01/17 21:46 Dose: 25 mg Enoxaparin Sodium (Lovenox) 120 mg SUBCUT DAILY [facility] Folic Acid (Folic Acid) Confirm Administered Dose 1 mg .ROUTE .STK-MED ONE Stop: 01/31/17 15:15 Last Admin: 01/31/17 18:04 Dose: Not Given Folic Acid (Folic Acid) 1 mg PO ONETIME ONE Stop: 01/31/17 14:51 Last Admin: 01/31/17 15:00 Dose: 1 mg Sodium Chloride (Normal Saline) Confirm Administered Dose 1,000 mls @ as directed .ROUTE .STK-MED ONE Stop: 01/31/17 15:14 Last Admin: 01/31/17 18:05 Dose: Not Given Sodium Chloride (Normal Saline) Confirm Administered Dose 1,000 mls @ as directed .ROUTE .STK-MED ONE Stop: 01/31/17 16:36 Last Admin: 01/31/17 15:00 Dose: 1,000 ml Sodium Chloride (Normal Saline) 1,000 mls @ 250 mls/hr IV ASDIRECTED [facility] Last Admin: 02/01/17 08:15 Dose: 250 mls/hr Lorazepam (Ativan) Confirm Administered Dose 2 mg .ROUTE .STK-MED ONE Stop: 01/31/17 15:14 Last Admin: 01/31/17 18:07 Dose: Not Given Lorazepam (Ativan) 2 mg IVPUSH ONETIME ONE Stop: 01/31/17 14:51 Last Admin: 01/31/17 15:20 Dose: 2 mg Lorazepam (Ativan) 2 mg IVPUSH ONETIME ONE Stop: 02/01/17 21:33 Last Admin: 02/01/17 21:45 Dose: 2 mg Quetiapine Fumarate (Seroquel) 50 mg PO BEDTIME ONE Stop: 01/31/17 21:01 Last Admin: 01/31/17 20:00 Dose: 50 mg Quetiapine Fumarate (Seroquel) 25 mg PO DAILY [facility] Last Admin: 02/01/17 08:24 Dose: 25 mg Thiamine HCl (Vitamin B-1) Confirm Administered Dose 100 mg .ROUTE .STK-MED ONE Stop: 01/31/17 15:13 Last Admin: 01/31/17 18:05 Dose: Not Given Thiamine HCl (Vitamin B-1) 100 mg PO ONETIME ONE Stop: 01/31/17 14:51 Last Admin: 01/31/17 15:00 Dose: 100 mg Topiramate (Topamax) 50 mg PO BEDTIME ONE Stop: 01/31/17 21:01 Last Admin: 01/31/17 20:02 Dose: 50 mg Warfarin Sodium (Coumadin) 10 mg PO ONETIME ONE Stop: 01/31/17 19:27 Last Admin: 01/31/17 20:02 Dose: 10 mg Warfarin Sodium (Coumadin) 10 mg PO ONETIME ONE Stop: 02/01/17 18:01 Last Admin: 02/01/17 18:41 Dose: Not Given - Exam Quality Assessment: Reports: DVT Prophylaxis General: Reports: Alert, Oriented, Cooperative, No Acute Distress HEENT: Reports: Pupils Equal, EOMI, Mucous Membr. Moist/[place]: Reports: Supple Lungs: Reports: Clear to Auscultation, Normal Respiratory Effort Cardiovascular: Reports: Regular Rate, Regular Rhythm GI/Abdominal Exam: Normal Bowel Sounds, Soft, Non-Tender (Male) Exam: Deferred Rectal (Males) Exam: Deferred Extremities: No Pedal Edema, Normal Capillary Refill Neurological: Reports: No New Focal Deficit Psy/Mental Status: Reports: Alert *Q Meaningful Use (DIS) - VTE *Q VTE Criteria *Q: - Stroke *Q Stroke Criteria *Q: - AMI *Q AMI Criteria *Q:
[2017-02-02] MEDS: Nicotine 21 MG/24 Hr Patch TRDERM SCH (09:07)
[2017-02-02] MEDS: Topiramate 25 MG Tab PO SCH (09:07)
[2017-02-02] MEDS: Folic Acid 1 MG Tab PO SCH (09:07)
[2017-02-02] MEDS: Multivitamins,Therapeutic Tab PO SCH (09:07)
[2017-02-02] MEDS: Doxycycline 100 MG Cap PO SCH (09:07)
[2017-02-02] MEDS: QUEtiapine 100 MG Tab PO SCH (09:07)
[2017-02-02] MEDS: Thiamine 100 MG Tab PO SCH (09:07)
[2017-02-02] MEDS: chlordiazePOXIDE 25 MG Cap PO SCH (09:08)
[2017-02-02] MEDS: Enoxaparin 120 MG/0.8 ML Syringe SUBCUT SCH (09:08)
[2017-02-02] MEDS: Venlafaxine 75 MG Cap.ER PO SCH (09:08)
[2017-02-02] MEDS: Famotidine 20 MG Tab PO SCH (09:08)
[2017-02-02] MEDS: LORazepam 2 MG/ML MDV IVPUSH PRN ×2 (09:21→12:13)
== END 2017-02-02 14:00 | DRG 896 ==
LOC: JD.ED 14:10 → JD.ICU 18:42 → JD.MS 02-01 16:23
PROVIDERS: ADMIT Internal Medicine; ATTEND Internal Medicine
DX: F10.230 Alcohol dependence with withdrawal, uncomplicated (principal); I26.99 Other pulmonary embolism without acute cor pulmonale; Z86.711 Personal history of pulmonary embolism; Z79.01 Long term (current) use of anticoagulants; F19.20 Other psychoactive substance dependence, uncomplicated; M54.9 Dorsalgia, unspecified; F32.9 Major depressive disorder, single episode, unspecified; L03.116 Cellulitis of left lower limb; F20.0 Paranoid schizophrenia; F15.20 Other stimulant dependence, uncomplicated; F33.3 Major depressive disorder, recurrent, severe with psychotic symptoms; F11.20 Opioid dependence, uncomplicated; E03.9 Hypothyroidism, unspecified; G89.29 Other chronic pain; F41.9 Anxiety disorder, unspecified; R47.02 Dysphasia; F17.210 Nicotine dependence, cigarettes, uncomplicated; Z91.5 Personal history of self-harm; Z79.899 Other long term (current) drug therapy
CPT/HCPCS: 71010; 80053; 80306; 81001; 83735; 84439; 84443; 84484; 85025; 85610; 93005; 96361; 96374; 99285; A9270 ×3; G0480 ×4; J2060; J7040 ×2; 36415; 80048; 99284; J1200; J1650

== ENCOUNTER 2017-03-19 10:28 | Emergency (ER) | payer MEDICAID, MEDICARE ==
--- NOTE | 2017-03-19 11:05 | EDM.PDOC ---
ED HPI GENERAL MEDICAL PROBLEM - General Chief Complaint: Medication Administration Stated Complaint: WARFARIN REFILL Time Seen by Provider: 03/19/17 11:05 Source of Information: Reports: Patient, Family (father) History Limitations: Reports: No Limitations - History of Present Illness INITIAL COMMENTS - FREE TEXT/NARRATIVE: 21-year-old male presents the ED with his father. He presents to the ED primarily to have medications that he takes daily refilled. Apparently he's been off the medication for about a week. This includes Coumadin for which he takes for a left deep venous thrombosis of the leg with consequent pulmonary emboli. Apparently said to bouts of DVT in the past. His other medications are psychiatric medications Seroquel 400 mg twice a day and Topamax 25 mg twice a day and Effexor 150 mg once daily. He is also supposed to be on Synthroid 200 g daily and uses Proventil inhaler when necessary. It appears he was discharged either from the skilled nursing system or psychiatric facility and was not given appropriate medication refills or scripts. Onset: Today (Apparently he's been without his medications for about a week.) Duration: Week(s): (1 week.) Severity: Moderate Context: Denies: Activity, Exercise, Lifting, Sick Contact, Trauma, Other Associated Symptoms: Reports: Chest Pain, Other (Respiratory rate is 16 with pulse oximetry of 100%. Certainly not in any respiratory distress at this time) . Denies: No Other Symptoms (Feels some pleuritic chest pain on inspiration. Does hurt to cough at times. 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: Other (see below) (None.) - Related Data Allergies Allergy/AdvReac Type Severity Reaction Status Date / Time No Known Allergies Allergy Verified 03/19/17 10:53 Home Meds: Home Meds Seroquel 400 mg PO BID 12/17/16 [History] Famotidine [Pepcid] 20 mg PO BID tablet 02/02/17 [Rx] Folic Acid 1 mg PO DAILY tablet 02/02/17 [Rx] Levothyroxine [Synthroid] 200 mcg PO ACBREAKFAST #30 tablet 02/02/17 [Rx] Multivitamins,Therapeutic [Thera] 1 each PO DAILY tablet 02/02/17 [Rx] Nicotine [Habitrol] 21 mg TRDERM DAILY patch 02/02/17 [Rx] Thiamine [Vitamin B-1] 100 mg PO DAILY tablet 02/02/17 [Rx] Topiramate [Topamax] 25 mg PO BID tablet 02/02/17 [Rx] Warfarin Pharmacy to Dose [Pharmacy to Dose - Warfarin] 5 mg PO ASDIRECTED #10 each 02/02/17 [Rx] chlordiazePOXIDE [Librium] 25 mg PO TID #15 cap 02/02/17 [Rx] Albuterol [Proventil HFA] 2 puff INH Q4H PRN #1 inhaler 03/19/17 [Rx] Levothyroxine Sodium [Synthroid] 200 mcg PO ACBREAKFAST #30 tab 03/19/17 [Rx] QUEtiapine [SEROquel] 400 mg PO BID #60 tab 03/19/17 [Rx] Topiramate [Topamax] 25 mg PO BID #60 tab 03/19/17 [Rx] Venlafaxine [Effexor] 150 mg PO DAILY 03/19/17 [History] Venlafaxine [Effexor] 150 mg PO DAILY #30 tab 03/19/17 [Rx] Warfarin [Coumadin] 5 mg PO DAILY #30 tab 03/19/17 [Rx] Past Medical History Respiratory History: Reports: PE Musculoskeletal History: Reports: Back Pain, Chronic Neurological History: Reports: Speech Problems, Other (See Below) Other Neuro History: Speech problems "from childhood trauma" Psychiatric History: Reports: Anxiety, Bipolar, Depression, Schizophrenia, Suicide Attempt, Suicidal Ideation Other Psychiatric History: paranoid schizophrenia Social & Family History - Family History Family Medical History: Noncontributory - Tobacco Use Smoking Status *Q: Current Every Day Smoker Years of Tobacco use: 4 Packs/Tins Daily: 1 Second Hand Smoke Exposure: Yes - Caffeine Use Caffeine Use: Reports: Coffee - Alcohol Use Days Per Week of Alcohol Use: 7 Number of Drinks Per Day: 1 Total Drinks Per Week: 7 - Recreational Drug Use Recreational Drug Use: Yes Drug Use in Last 12 Months: No Recreational Drug Type: 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 Denies: Chest Pain, Blood Pressure Problem, Claudication, Edema, Lightheadedness, Orthopnea, Palpitations Endocrine: Reports: Fatigue GI/Abdominal: Reports: Constipation : Reports: No Symptoms Musculoskeletal: Reports: Back Pain Skin: Reports: No Symptoms Neurological: Reports: No Symptoms Psychiatric: Reports: No Symptoms Hematologic/Lymphatic: Reports: No Symptoms Immunologic: Reports: No Symptoms ED EXAM, GENERAL - Physical Exam Exam: See Below Exam Limited By: No Limitations General Appearance: Alert, WD/WN, No Apparent Distress Eye Exam: Bilateral Eye: Normal Inspection Throat/Mouth: Normal Inspection, Normal Lips, Normal Oropharynx Head: Atraumatic, Normocephalic Neck: Normal Inspection, Supple, Non-Tender, Full Range of Motion. No: Lymphadenopathy (L), Lymphadenopathy (R) Respiratory/Chest: No Respiratory Distress, Lungs Clear, Normal Breath Sounds, Chest Non-Tender Cardiovascular: Normal Peripheral Pulses, Regular Rate, Rhythm, No Edema, No Murmur Peripheral Pulses: 2+: Posterior Tibial (L), Posterior Tibial (R), Dorsalis Pedis (L), Dorsalis Pedis (R) GI/Abdominal: Normal Bowel Sounds, Soft, Non-Tender, No Organomegaly, No Abnormal Bruit, No Mass, Pelvis Stable Extremities: Normal Inspection, Normal Range of Motion, Non-Tender, No Pedal Edema, Other Neurological: Alert (No evidence of any swelling in the left lower extremity that would suggest DVT.), Oriented, CN II-XII Intact, Normal Cognition, Normal Gait Psychiatric: Normal Affect, Normal Mood Skin Exam: Warm, Dry, Intact, Normal Color Course - Vital Signs Last Recorded V/S: Last Vital Signs Temp 36.1 C 03/19/17 10:49 Pulse 113 H 03/19/17 10:49 Resp 16 03/19/17 10:49 BP 132/18 L 03/19/17 10:49 Pulse Ox 100 03/19/17 10:49 - Orders/Labs/Meds Labs: Laboratory Tests 03/19/17 Range/Units 11:30 PT 15.5 H (8.0-13.0) SECONDS INR 1.39 Meds: Medications Discontinued Medications Generic Name Dose Route Start Last Admin Trade Name Luiz PRN Reason Stop Dose Admin Warfarin Sodium 10 mg 03/19/17 11:16 03/19/17 11:36 Coumadin PO 03/19/17 11:17 10 mg ONETIME ONE Administration - Radiology Interpretation Free Text/Narrative:: 21-year-old male presents the ED primarily for medication refills. Appears for whatever reason he's been without his medications which some of which are essential according to his history. Hip and without them for a week. [facility] and [facility]. Refilled warfarin 5 mg once daily. Today we gave him 10 mg in the ED and he is to take 7.5 mg tomorrow. He is to have his PT/INR checked in 5-7 days time. Also refilled Effexor 150 mg once daily. Topamax 25 mg by mouth twice a day. Seroquel 400 mg twice a day. Synthroid 200 g once daily Proventil inhaler 2 puffs every 4 hours when necessary for shortness of breath and wheezing. is or consider nonessential such as Pepcid , Folic acid etc. He will be able to travel to [place] and his father is with him to ensure that he has money for his medications. Departure - Departure Time of Disposition: 11:22 Disposition: Home, Self-Care 01 Condition: Fair Clinical Impression: History of deep venous thrombosis (DVT) of distal vein of left lower extremity , History of pulmonary embolism - Discharge Information Prescriptions: Albuterol [Proventil HFA] 2 puff INH Q4H PRN #1 inhaler PRN Reason: Dyspnea/wheezing Levothyroxine Sodium [Synthroid] 200 mcg PO ACBREAKFAST #30 tab QUEtiapine [SEROquel] 400 mg PO BID #60 tab Topiramate [Topamax] 25 mg PO BID #60 tab Venlafaxine [Effexor] 150 mg PO DAILY #30 tab Warfarin [Coumadin] 5 mg PO DAILY #30 tab Instructions: Deep Vein Thrombosis Referrals: PCP,None [Primary Care Provider] - Forms: ED Department Discharge Additional Instructions: Evaluation the emergency room today essentially to get you back on your medications for which you have been off of for the last week or more. The Coumadin was the most important and therefore you were given 10 mg in the ED. Suggest MR you take 1-1/2 tablets of the 5 mg strength then after that take 5 mg daily. PT INR or Coumadin check in your blood sugar be done in approximately 5 days time. Follow-up with your doctor in regards to need further medications. I did refill your effects over your Topamax ,Seroquel, Synthroid, and Proventil inhaler.
[2017-03-19] MEDS ORDERED: Warfarin 10 MG Tab PO ONE (11:16)
== END 2017-03-19 11:45 | disposition home or self-care (01) ==
LOC: JD.ED 10:28
DX: Z76.0 Encounter for issue of repeat prescription (principal); Z86.711 Personal history of pulmonary embolism; Z86.718 Personal history of other venous thrombosis and embolism; Z79.899 Other long term (current) drug therapy; F17.210 Nicotine dependence, cigarettes, uncomplicated; Z79.01 Long term (current) use of anticoagulants
CPT/HCPCS: 36415; 85610; 99282; A9270

== ENCOUNTER 2017-03-21 19:47 | Emergency (ER) | payer MEDICARE, MEDICAID ==
--- NOTE | 2017-03-21 20:11 | EDM.PDOC ---
ED HPI GENERAL MEDICAL PROBLEM - General Chief Complaint: Laceration Stated Complaint: LACERATION TO HAND Time Seen by Provider: 03/21/17 19:55 Source of Information: Reports: Patient History Limitations: Reports: No Limitations - History of Present Illness INITIAL COMMENTS - FREE TEXT/NARRATIVE: Patient 21-year-old male presents ED complaining of a laceration to the distal phalanx of the left index finger. Patient is getting ready to shave his head and accidentally cut himself with a razor. Bleeding has not stopped with direct pressure thus prompting evaluation in the ED. No sensorimotor deficits noted. Minimal pain present. Tetanus status up-to-date. Left Hand Pain Score (Numeric/FACES): 3 - Related Data Allergies Allergy/AdvReac Type Severity Reaction Status Date / Time No Known Allergies Allergy Verified 03/21/17 19:58 Home Meds: Home Meds Seroquel 400 mg PO BID 12/17/16 [History] Famotidine [Pepcid] 20 mg PO BID tablet 02/02/17 [Rx] Folic Acid 1 mg PO DAILY tablet 02/02/17 [Rx] Levothyroxine [Synthroid] 200 mcg PO ACBREAKFAST #30 tablet 02/02/17 [Rx] Multivitamins,Therapeutic [Thera] 1 each PO DAILY tablet 02/02/17 [Rx] Nicotine [Habitrol] 21 mg TRDERM DAILY patch 02/02/17 [Rx] Thiamine [Vitamin B-1] 100 mg PO DAILY tablet 02/02/17 [Rx] chlordiazePOXIDE [Librium] 25 mg PO TID #15 cap 02/02/17 [Rx] Albuterol [Proventil HFA] 2 puff INH Q4H PRN #1 inhaler 03/19/17 [Rx] QUEtiapine [SEROquel] 400 mg PO BID #60 tab 03/19/17 [Rx] Topiramate [Topamax] 25 mg PO BID #60 tab 03/19/17 [Rx] Venlafaxine [Effexor] 150 mg PO DAILY #30 tab 03/19/17 [Rx] Warfarin [Coumadin] 5 mg PO DAILY #30 tab 03/19/17 [Rx] Past Medical History Cardiovascular History: Reports: Blood Clots/VTE/DVT Respiratory History: Reports: PE Musculoskeletal History: Reports: Back Pain, Chronic Neurological History: Reports: Speech Problems, Other (See Below) Other Neuro History: Speech problems "from childhood trauma" Psychiatric History: Reports: Addiction, Anxiety, Bipolar, Depression, Schizophrenia, Suicide Attempt, Suicidal Ideation Other Psychiatric History: paranoid schizophrenia Hematologic History: Reports: Anticoagulation Therapy - Past Surgical History Cardiovascular Surgical History: Reports: None Social & Family History - Family History Family Medical History: Noncontributory - Tobacco Use Smoking Status *Q: Current Every Day Smoker Years of Tobacco use: 2 Packs/Tins Daily: 0.5 Used Tobacco, but Quit: No Second Hand Smoke Exposure: No - Caffeine Use Caffeine Use: Reports: None - Alcohol Use Days Per Week of Alcohol Use: 7 Number of Drinks Per Day: 1 Total Drinks Per Week: 7 - Recreational Drug Use Recreational Drug Use: No Drug Use in Last 12 Months: No Recreational Drug Type: Reports: Heroin, Methamphetamine Other Recreational Drug Type: last usedc about 1.5 yrs ago Recreational Drug Use Frequency: Daily - Living Situation & Occupation Living situation: Reports: Occupation: Unemployed ED ROS GENERAL - Review of Systems Review Of Systems: ROS reveals no pertinent complaints other than HPI. ED EXAM, SKIN/RASH Exam: See Below Exam Limited By: No Limitations General Appearance: Alert, WD/WN, No Apparent Distress Ears: Hearing Grossly Normal Nose: Normal Inspection Throat/Mouth: Normal Voice, No Airway Compromise Neck: Normal Inspection, Supple Respiratory/Chest: No Respiratory Distress, No Accessory Muscle Use Cardiovascular: Normal Peripheral Pulses, Regular Rate, Rhythm Peripheral Pulses: 4+: Radial (L) Extremities: Other (Approximately 4 cm superficial laceration to the left index finger distal phalanx. Bleeding controlled. No sensory motor deficits noted.) Neurological: Alert, Oriented, CN II-XII Intact, Normal Cognition, No Motor/ Sensory Deficits ED SKIN PROCEDURES - Laceration/Wound Repair Left Finger Lac/Wound length In cm: 4 (Left index finger distal phalanx) Appearance: Superficial, Clean Distal NVT: Neuro & Vascular Intact, No Tendon Injury Exploration/Debridement/Repair: No Foreign Material Found Closed with: Steri-Strips Drain Placement: No Sterile Dressing Applied: Nurse Tetanus Status Addressed: Yes Complications: No Course - Vital Signs Last Recorded V/S: Last Vital Signs Temp 97.8 F 03/21/17 19:58 Pulse 97 03/21/17 19:58 Resp 20 03/21/17 19:58 BP Pulse Ox 100 03/21/17 19:58 - Re-Assessments/Exams Free Text/Narrative Re-Assessment/Exam: Laceration approximated well with few Steri-Strips. Bleeding controlled. I did have a little splint applied to the finger with instructions. Discharge instructions as documented. Departure - Departure Time of Disposition: 20:09 Disposition: Home, Self-Care 01 Condition: Good Clinical Impression: Laceration of left index finger w/o foreign body w/o damage to nail Qualifiers: Encounter type: initial encounter Qualified Code(s): S61.211A - Laceration without foreign body of left index finger without damage to nail, initial encounter - Discharge Information Instructions: Laceration Care, Adult, [id number], Stitches, [place], or Adhesive Wound Closure, [id number] Referrals: PCP,None [Primary Care Provider] - Forms: ED Department Discharge Additional Instructions: Allow Steri-Strips to fall off in the next 5-7 days. Do not soak laceration. Keep laceration clean and dry. If it starts to bleed hold direct pressure. Use a finger splint for the next 3 days to minimize movement. Utilize Tylenol or ibuprofen as needed for discomfort. Return to the ED if you develop any new or worsening symptoms.
== END 2017-03-21 20:20 | disposition home or self-care (01) ==
LOC: JD.ED 19:47
DX: S61.211A Laceration without foreign body of left index finger without damage to nail, initial encounter (principal); F17.210 Nicotine dependence, cigarettes, uncomplicated; Z79.899 Other long term (current) drug therapy; Z79.01 Long term (current) use of anticoagulants; W26.8XXA Contact with other sharp object(s), not elsewhere classified, initial encounter
CPT/HCPCS: 99283

== ENCOUNTER 2017-04-03 16:20 | Emergency (ER) | payer MEDICARE, MEDICAID ==
[2017-04-03] MEDS ORDERED: Albuterol 0.083% 2.5 MG/3 ML Neb Soln NEB ONE (17:22)
[2017-04-03] MEDS ORDERED: Warfarin 10 MG Tab PO ONE (18:48)
--- NOTE | 2017-04-03 18:51 | EDM.PDOC ---
ED HPI GENERAL MEDICAL PROBLEM - General Chief Complaint: Abdominal Pain Stated Complaint: BLOOD CLOT IN LUNGS Time Seen by Provider: 04/03/17 16:53 Source of Information: Reports: Patient, RN Notes Reviewed - History of Present Illness INITIAL COMMENTS - FREE TEXT/NARRATIVE: 21-year-old male comes in with upper abdominal discomfort. He states this started last evening and continues to have intermittent sharp shooting pains upper mid abdomen. He states he has concerns due to prior diagnosis of pulmonary embolism. He is on Coumadin for that. He states that was diagnosed many weeks ago. I see from prior visits he had med refills provided less than 2 weeks ago here in the ED and had apparently been off medication for a week or so prior to that. He claims he has been taking the Coumadin most of the time but admits he may be missing some doses here and there. He's had no nausea vomiting or diarrhea. No chest pain or difficulty breathing at this time. He has started coughing more than usual the last couple of days. He does also have history of asthma. Abdomen Pain Score (Numeric/FACES): 9 - Related Data Allergies Allergy/AdvReac Type Severity Reaction Status Date / Time No Known Allergies Allergy Verified 04/03/17 16:36 Home Meds: Home Meds Seroquel 400 mg PO BID 12/17/16 [History] Folic Acid 1 mg PO DAILY tablet 02/02/17 [Rx] Levothyroxine [Synthroid] 200 mcg PO ACBREAKFAST #30 tablet 02/02/17 [Rx] Multivitamins,Therapeutic [Thera] 1 each PO DAILY tablet 02/02/17 [Rx] Nicotine [Habitrol] 21 mg TRDERM DAILY patch 02/02/17 [Rx] Thiamine [Vitamin B-1] 100 mg PO DAILY tablet 02/02/17 [Rx] chlordiazePOXIDE [Librium] 25 mg PO TID #15 cap 02/02/17 [Rx] Albuterol [Proventil HFA] 2 puff INH Q4H PRN #1 inhaler 03/19/17 [Rx] Topiramate [Topamax] 25 mg PO BID #60 tab 03/19/17 [Rx] Venlafaxine [Effexor] 150 mg PO DAILY #30 tab 03/19/17 [Rx] Warfarin [Coumadin] 5 mg PO DAILY #30 tab 03/19/17 [Rx] Famotidine [Pepcid] 20 mg PO DAILY 04/03/17 [History] Pregabalin [Lyrica] 300 mg PO BID 04/03/17 [History] Past Medical History Cardiovascular History: Reports: Blood Clots/VTE/DVT Respiratory History: Reports: PE Gastrointestinal History: Reports: Cholelithiasis Musculoskeletal History: Reports: Back Pain, Chronic Neurological History: Reports: Other (See Below), Speech Problems Other Neuro History: Speech problems "from childhood trauma" Psychiatric History: Reports: Anxiety, Bipolar, Depression, Suicide Attempt, Schizophrenia, Suicidal Ideation Other Psychiatric History: paranoid schizophrenia Endocrine/Metabolic History: Reports: Hypothyroidism Hematologic History: Reports: Anticoagulation Therapy - Past Surgical History Cardiovascular Surgical History: Reports: None GI Surgical History: Reports: Cholecystectomy Social & Family History - Family History Family Medical History: Noncontributory - Tobacco Use Smoking Status *Q: Current Every Day Smoker Years of Tobacco use: 2 Packs/Tins Daily: 1 Used Tobacco, but Quit: No Second Hand Smoke Exposure: Yes - Caffeine Use Caffeine Use: Reports: Coffee, Energy Drinks, Soda, Tea - Alcohol Use Days Per Week of Alcohol Use: 7 Number of Drinks Per Day: 1 Total Drinks Per Week: 7 - Recreational Drug Use Recreational Drug Use: Yes Drug Use in Last 12 Months: Yes 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 Denies: Shortness of Breath, Sputum Cardiovascular: Denies: Chest Pain GI/Abdominal: Reports: Abdominal Pain. Denies: Diarrhea, Nausea (Mild upper abdominal discomfort, sharp shooting pains), Vomiting : Reports: Other (Patient states he has had swelling of the left scrotum and discomfort for about the past 4 months, not aware of any recent injury) Musculoskeletal: Reports: No Symptoms Skin: Reports: No Symptoms Neurological: Reports: No Symptoms ED EXAM, GI/ABD - Physical Exam Exam: See Below General Appearance: Alert, No Apparent Distress Throat/Mouth: Normal Inspection, Normal Oropharynx Head: Atraumatic Neck: Supple Respiratory/Chest: No Respiratory Distress, Lungs Clear, Normal Breath Sounds Cardiovascular: Tachycardia GI/Abdominal Exam: Soft, Non-Tender. No: Guarding (Male) Exam: Scrotum Tenderness (L). No: Testicular Tenderness (L) Back Exam: Normal Inspection. No: CVA Tenderness (L), CVA Tenderness (R) Extremities: Normal Inspection, Normal Range of Motion. No: Pedal Edema, Leg Pain Neurological: Alert, Oriented, No Motor/Sensory Deficits Skin Exam: Warm, Dry, Normal Color Course - Vital Signs Last Recorded V/S: Last Vital Signs Temp 98.0 F 04/03/17 16:41 Pulse 107 H 04/03/17 16:41 Resp 18 04/03/17 16:41 BP 136/83 04/03/17 16:41 Pulse Ox 98 04/03/17 17:22 - Orders/Labs/Meds Orders: Active Orders 24 hr Category Date Time Status RT Aerosol Therapy [RC] ASDIRECTED Care 04/03/17 17:22 Active Chest 1V Frontal [CR] Stat Exams 04/03/17 17:21 Taken Labs: Laboratory Tests 04/03/17 04/03/17 04/03/17 Range/Units 17:35 17:35 17:35 WBC 11.19 H (4.23-9.07) K/mm3 RBC 4.70 (4.63-6.08) M/mm3 Hgb 13.1 L (13.7-17.5) gm/L Hct 39.4 L (40.1-51.0) % MCV 83.8 (79.0-92.2) fl MCH 27.9 (25.7-32.2) pg MCHC 33.2 (32.2-35.5) g/dl RDW Std Deviation 48.4 H (35.1-43.9) fL Plt Count 318 (163-337) K/mm3 MPV 9.2 L (9.4-12.3) fl Neut % (Auto) 69.5 H (34.0-67.9) % Lymph % (Auto) 16.4 L (21.8-53.1) % Warren % (Auto) 9.6 (5.3-12.2) % Eos % (Auto) 3.9 (0.8-7.0) Baso % (Auto) 0.3 (0.1-1.2) % Neut # (Auto) 7.79 H (1.78-5.38) K/mm3 Lymph # (Auto) 1.83 (1.32-3.57) K/mm3 Warren # (Auto) 1.07 H (0.30-0.82) K/mm3 Eos # (Auto) 0.44 (0.04-0.54) K/mm3 Baso # (Auto) 0.03 (0.01-0.08) K/mm3 PT 10.5 (8.0-13.0) SECONDS INR 0.97 Sodium 139 (136-145) mEq/L Potassium 4.0 (3.5-5.1) mEq/L Chloride 104 (98-107) mEq/L Carbon Dioxide 28 (21-32) mEq/L Anion Gap 11.0 (5-15) BUN 12 (7-18) mg/dL Creatinine 0.9 (0.7-1.3) mg/dL Est Cr Clr Drug Dosing 173.52 mL/min Estimated GFR (MDRD) > 60 (>60) mL/min BUN/Creatinine Ratio 13.3 L (14-18) Glucose 97 (74-106) mg/dL Calcium 8.6 (8.5-10.1) mg/dL Total Bilirubin 0.3 (0.2-1.0) mg/dL AST 14 L (15-37) U/L ALT 41 (16-63) U/L Alkaline Phosphatase 95 (46-116) U/L Total Protein 7.5 (6.4-8.2) g/dl Albumin 3.5 (3.4-5.0) g/dl Globulin 4.0 gm/dL Albumin/Globulin Ratio 0.9 L (1-2) Urine Color (Yellow) Urine Appearance (Clear) Urine pH (5.0-8.0) Ur Specific Sharon (1.005-1.030) Urine Protein (Negative) Urine Glucose (UA) (Negative) Urine Ketones (Negative) Urine Occult Blood (Negative) Urine Nitrite (Negative) Urine Bilirubin (Negative) Urine Urobilinogen (0.2-1.0) Ur Leukocyte Esterase (Negative) Urine RBC (0-5) /hpf Urine WBC (0-5) /hpf Ur Epithelial Cells (0-5) /hpf Urine Bacteria (FEW) /hpf Urine Mucus (FEW) /hpf 04/03/17 Range/Units 17:54 WBC (4.23-9.07) K/mm3 RBC (4.63-6.08) M/mm3 Hgb (13.7-17.5) gm/L Hct (40.1-51.0) % MCV (79.0-92.2) fl MCH (25.7-32.2) pg MCHC (32.2-35.5) g/dl RDW Std Deviation (35.1-43.9) fL Plt Count (163-337) K/mm3 MPV (9.4-12.3) fl Neut % (Auto) (34.0-67.9) % Lymph % (Auto) (21.8-53.1) % Warren % (Auto) (5.3-12.2) % Eos % (Auto) (0.8-7.0) Baso % (Auto) (0.1-1.2) % Neut # (Auto) (1.78-5.38) K/mm3 Lymph # (Auto) (1.32-3.57) K/mm3 Warren # (Auto) (0.30-0.82) K/mm3 Eos # (Auto) (0.04-0.54) K/mm3 Baso # (Auto) (0.01-0.08) K/mm3 PT (8.0-13.0) SECONDS INR Sodium (136-145) mEq/L Potassium (3.5-5.1) mEq/L Chloride (98-107) mEq/L Carbon Dioxide (21-32) mEq/L Anion Gap (5-15) BUN (7-18) mg/dL Creatinine (0.7-1.3) mg/dL Est Cr Clr Drug Dosing mL/min Estimated GFR (MDRD) (>60) mL/min BUN/Creatinine Ratio (14-18) Glucose (74-106) mg/dL Calcium (8.5-10.1) mg/dL Total Bilirubin (0.2-1.0) mg/dL AST (15-37) U/L ALT (16-63) U/L Alkaline Phosphatase (46-116) U/L Total Protein (6.4-8.2) g/dl Albumin (3.4-5.0) g/dl Globulin gm/dL Albumin/Globulin Ratio (1-2) Urine Color Yellow (Yellow) Urine Appearance Clear (Clear) Urine pH 6.0 (5.0-8.0) Ur Specific Sharon 1.025 (1.005-1.030) Urine Protein Negative (Negative) Urine Glucose (UA) Negative (Negative) Urine Ketones Negative (Negative) Urine Occult Blood Negative (Negative) Urine Nitrite Negative (Negative) Urine Bilirubin Negative (Negative) Urine Urobilinogen 0.2 (0.2-1.0) Ur Leukocyte Esterase Negative (Negative) Urine RBC Not seen (0-5) /hpf Urine WBC 0-5 (0-5) /hpf Ur Epithelial Cells 0-5 (0-5) /hpf Urine Bacteria Few (FEW) /hpf Urine Mucus Few (FEW) /hpf Meds: Medications Discontinued Medications Generic Name Dose Route Start Last Admin Trade Name Freq PRN Reason Stop Dose Admin Albuterol 2.5 mg 04/03/17 17:22 04/03/17 17:44 Proventil Neb Soln NEB 04/03/17 17:23 2.5 mg ONETIME ONE Administration Warfarin Sodium 10 mg 04/03/17 18:48 04/03/17 18:56 Coumadin PO 04/03/17 18:49 10 mg ONETIME ONE Administration - Re-Assessments/Exams Free Text/Narrative Re-Assessment/Exam: 04/03/17 19:27. Labs are as documented. Urine was fine. We did do a bladder scan after voiding and he only had 11 mL of urine in the bladder after voiding so he is emptying. Scan of left scrotum showed a small variceal, see radiology report for details. Pro time INR came back nontherapeutic. He states that he has not missed many doses recently "maybe 1 or 2". I am going to increase his dosage to 10 mg daily for 3 days and then go to 7.5 daily with a repeat pro time INR check 4 days from now. Patient is in agreement with that plan. Discharge instructions as documented. Departure - Departure Time of Disposition: 19:25 Disposition: Home, Self-Care 01 Condition: Fair Clinical Impression: Abdominal pain Qualifiers: Abdominal location: upper abdomen, unspecified Qualified Code(s): R10.10 - Upper abdominal pain, unspecified Upper respiratory infection Qualifiers: URI type: unspecified viral URI Qualified Code(s): J06.9 - Acute upper respiratory infection, unspecified - Discharge Information Referrals: PCP,None [Primary Care Provider] - Forms: ED Department Discharge Additional Instructions: Increase Coumadin dosage to 10 mg daily for 3 days, then go to 7.5 mg, 15 mg tab twice a half of a 5 mg tab daily until further directed. Follow up this coming Monday for repeat pro time, INR blood test. Continue to drink plenty of water to maintain hydration. Continue to use albuterol inhaler. Vaporizer or steam as needed. Return to ED as needed if symptoms worsening in any way. - My Orders Last 24 Hours: My Active Orders 04/03/17 17:21 Chest 1V Frontal [CR] Stat 04/03/17 17:22 RT Aerosol Therapy [RC] ASDIRECTED - Assessment/Plan Last 24 Hours: My Active Orders 04/03/17 17:21 Chest 1V Frontal [CR] Stat 04/03/17 17:22 RT Aerosol Therapy [RC] ASDIRECTED
--- NOTE | 2017-04-03 18:53 | US ---
Testicular ultrasound: Multiple real-time images of the testicles were obtained. Testicles have a homogeneous appearance. No intratesticular mass is seen. Both arterial and venous blood flow are seen within the testicles. Slightly prominent vasculature is seen inferior to the left kidney which is felt compatible with a small varicocele. No hydrocele is seen. Measurements: Right testicle: 3.9 x 2.6 x 3.2 cm Left testicle: 4.0 x 2.2 x 3.1 cm Impression: 1. Small varicocele inferior to the left testicle. 2. Testicular ultrasound is otherwise unremarkable. Diagnostic code #2
--- NOTE | 2017-04-04 07:28 | CR ---
Chest: Portable view of the chest was obtained. Comparison: Prior chest x-ray of 01/31/17. Heart size and mediastinum are normal. Lungs are clear. Bony structures are grossly intact. Impression: 1. Nothing acute is identified on portable chest x-ray. Diagnostic code #1
== END 2017-04-03 19:35 | disposition home or self-care (01) ==
LOC: JD.ED 16:20
DX: R10.10 Upper abdominal pain, unspecified (principal); J06.9 Acute upper respiratory infection, unspecified; I86.1 Scrotal varices; F31.9 Bipolar disorder, unspecified; E03.9 Hypothyroidism, unspecified; J45.909 Unspecified asthma, uncomplicated; F17.210 Nicotine dependence, cigarettes, uncomplicated; Z86.718 Personal history of other venous thrombosis and embolism; Z79.01 Long term (current) use of anticoagulants; Z79.899 Other long term (current) drug therapy
CPT/HCPCS: 36415; 51798; 71045; 76870; 80053; 81001; 85025; 85610; 93975; 94640; 99285; A9270; 99283

== ENCOUNTER 2019-10-21 01:50 | Emergency (ER) | payer MEDICAID, MEDICARE ==
--- NOTE | 2019-10-21 02:44 | EDM.PDOCBH ---
ED HPI GENERAL MEDICAL PROBLEM - General Chief Complaint: Neurological Problem Stated Complaint: poss seizure / harmful thoughts Time Seen by Provider: 10/21/19 02:01 Source of Information: Reports: Patient History Limitations: Reports: No Limitations - History of Present Illness INITIAL COMMENTS - FREE TEXT/NARRATIVE: Mr. Solis is a very pleasant 24-year-old man with a past medical history significant for paranoid schizophrenia, bipolar affective disorder, depression, anxiety, suicide attempts, and heroin addiction, who now presents to the ED stating that he is suffering from methadone withdrawal. The patient states that he has been in [place] for the past 3 years, and that he was psychiatrically hospitalized approximately 7 times while there, most recently on 04/30/2019, being released just this past 10/19/2019. He states that he has been on methadone for the past 2 years, and he states that he received his medications, including methadone, on a daily basis while psychiatrically hospitalized. He states that when he was released from the psychiatric hospital, he went directly to the airport, and ultimately flew to [place], [place], where he was picked up by his parents last night. The patient also states that he has a seizure disorder, diagnosed 3 years ago, however, he also states that an EEG at that time was negative. He is prescribed carbamazepine, although it is not clear that that is to treat a seizure disorder; it may be prescribed to treat his bipolar affective disorder. He states that when he left [facility], he did not have any of his own medications, therefore his last dose of methadone, carbamazepine, and diazepam were on 10/19/2019. He states that as a result of withdrawing from methadone, he suffered 3 seizures while in the car en route from [place]. He states that whenever he withdraws from methadone, he develops thoughts of harming himself. He states that he burned his distal left forearm with a cigarette y 10/20/2019, and he began thinking about cutting his arms around 22:00 tonight. Paperwork from the psychiatric clinic where the patient was admitted indicates that his diagnoses included 1) Major depressive disorder, recurrent severe without psychotic features, 2) Borderline personality disorder, 3) Post- traumatic stress disorder, 4) Opioid dependence, 5) Other psychoactive substance dependence, and 6) Polysubstance withdrawal. There is no mention in his paperwork of schizophrenia or a seizure disorder. Here in the ED, the patient's initial BP was found to be mildly elevated at 144/88, otherwise, he is hemodynamically stable, afebrile, saturating 95% on room air. Other than his psychiatric and substance abuse issues, the patient denies having a recent fever, chills, sore throat, ear pain, nasal or sinus congestion, cough, dyspnea, chest pain, palpitations, nausea, vomiting, constipation, diarrhea, abdominal pain, urinary symptoms, recent weight gain or weight loss, recent bloody bowel movements or black bowel movements, recent joint aches, headaches, or rashes. The patient states that while his parents picked him up from the airport and drove him here, he is not staying with his parents. He was hoping to get into a psychiatric facility that can provide him methadone, and from there, get into a longterm house. At present, the patient is homeless. The patient does not have a PCP. - Related Data Allergies Allergy/AdvReac Type Severity Reaction Status Date / Time No Known Allergies Allergy Verified 10/21/19 02:03 Home Meds: Home Meds Venlafaxine [Effexor] 150 mg PO DAILY #30 tab 03/19/17 [Rx] Doxepin [SINEquan] 50 mg PO BID 10/21/19 [History] QUEtiapine [SEROquel] 600 mg PO DAILY 10/21/19 [History] carBAMazepine [Carbamazepine ER] 600 mg PO BID 10/21/19 [History] Past Medical History Cardiovascular History: Reports: Blood Clots/VTE/DVT Respiratory History: Reports: PE (Jan 2017, treated with coumadin) Gastrointestinal History: Reports: GERD Psychiatric History: Reports: Addiction (heroin, methamphetamine), Bipolar, Depression, PTSD, Schizophrenia, Suicide Attempt, Other (See Below) (Borderline personality disorder) Endocrine/Metabolic History: Reports: Hypothyroidism (possible) - Past Surgical History HEENT Surgical History: Reports: Oral Surgery (wisdom teeth extraction) GI Surgical History: Reports: Cholecystectomy (2018) Musculoskeletal Surgical History: Reports: ORIF (left ankle, with subsequent hardware removal) Social & Family History - Family History Family Medical History: Noncontributory - Tobacco Use Smoking Status *Q: Current Every Day Smoker Years of Tobacco use: 12 Packs/Tins Daily: 3 Packs/Tins Daily Comment: Down from 5 ppd - Caffeine Use Caffeine Use: Reports: Coffee, Energy Drinks, Soda - Alcohol Use Alcohol Use History: Yes Date/Time of Last Drink Comment: last drank 2017 - Recreational Drug Use Recreational Drug Use: Yes Drug Use in Last 12 Months: Yes Recreational Drug Type: Reports: Cocaine (last injected August 2019), Heroin (last injected August 2019), Marijuana/Hashish (smokes daily), Methamphetamine (last snorted 2016) - Living Situation & Occupation Living situation: Reports: Single, Other (Homeless) Occupation: Unemployed ED ROS GENERAL - Review of Systems Review Of Systems: Comprehensive ROS is negative, except as noted in HPI. ED EXAM, BEHAVIORAL HEALTH - Physical Exam Exam: See Below Exam Limited By: No Limitations General Appearance: Alert, WD/WN, No Apparent Distress Eye Exam: Bilateral Eye: EOMI, Normal Inspection Ears: Normal External Exam, Hearing Grossly Normal Nose: Normal Inspection Throat/Mouth: Normal Inspection, Normal Lips, Normal Voice, No Airway Compromise Head: Atraumatic, Normocephalic Neck: Normal Inspection, Full Range of Motion Respiratory/Chest: No Respiratory Distress, Lungs Clear, Normal Breath Sounds, No Accessory Muscle Use Cardiovascular: Normal Peripheral Pulses, Regular Rate, Rhythm, No Edema, No Gallop, No JVD, No Murmur, No Rub GI/Abdominal: Normal Bowel Sounds, Soft, Non-Tender, No Organomegaly, No Distention, No Abnormal Bruit, No Mass (Male) Exam: Deferred Rectal (Males) Exam: Deferred Back Exam: Normal Inspection, Full Range of Motion, NT Extremities: Normal Inspection, Normal Range of Motion, No Pedal Edema, Normal Capillary Refill Neurological: Alert, No Motor/Sensory Deficits, Oriented x 3, Other (Speech impediment) Psychiatric: Normal Affect, Normal Cognition Skin Exam: Warm, Dry, Intact, Normal color, No rash, Tattoo(s) (several) EKG INTERPRETATION EKG Date: 10/21/19 Time: 02:50 Rhythm: NSR Rate (Beats/Min): 90 [place]: Normal P-Wave: Present QRS: Other (Nonspecific intraventricular conduction delay) ST-T: Normal QT: Prolonged (QTc 524 ms) Comparison: Change From Previous EKG (QTc prolongation new since 01/31/2017) COURSE, BEHAVIORAL HEALTH COMP - Course Vital Signs: Last Vital Signs Temp 36.9 C 10/21/19 01:58 Pulse 97 10/21/19 01:58 Resp 20 10/21/19 01:58 BP 144/88 H 10/21/19 01:58 Pulse Ox 95 10/21/19 01:58 Orders, Labs, Meds: Active Orders 24 hr Category Date Time Status EKG Documentation Completion [RC] STAT Care 10/21/19 02:36 Active Laboratory Tests 10/21/19 10/21/19 10/21/19 Range/Units 02:40 02:48 03:05 WBC 6.83 (4.23-9.07) K/mm3 RBC 3.79 L (4.63-6.08) M/mm3 Hgb 10.7 L D (13.7-17.5) gm/dl Hct 32.3 L (40.1-51.0) % MCV 85.2 (79.0-92.2) fl MCH 28.2 (25.7-32.2) pg MCHC 33.1 (32.2-35.5) g/dl RDW Std Deviation 46.1 H (35.1-43.9) fL Plt Count 263 (163-337) K/mm3 MPV 8.6 L (9.4-12.3) fl Neutrophils % (Manual) 55 (40-60) % Band Neutrophils % 1 (0-10) % Lymphocytes % (Manual) 34 (20-40) % Atypical Lymphs % 0 % Monocytes % (Manual) 5 (2-10) % Eosinophils % (Manual) 5 (0.8-7.0) % Basophils % (Manual) 0 L (0.2-1.2) Platelet Estimate Adequate Plt Morphology Comment Normal RBC Morph Comment Normal Sodium (136-145) mEq/L Potassium (3.5-5.1) mEq/L Chloride (98-107) mEq/L Carbon Dioxide (21-32) mEq/L Anion Gap (5-15) BUN (7-18) mg/dL Creatinine (0.7-1.3) mg/dL Est Cr Clr Drug Dosing mL/min Estimated GFR (MDRD) (>60) mL/min BUN/Creatinine Ratio (14-18) Glucose (74-106) mg/dL Calcium (8.5-10.1) mg/dL Phosphorus (2.6-4.7) mg/dL Magnesium (1.8-2.4) mg/dl Total Bilirubin (0.2-1.0) mg/dL AST (15-37) U/L ALT (16-63) U/L Alkaline Phosphatase (46-116) U/L Creatine Kinase (39-308) U/L Total Protein (6.4-8.2) g/dl Albumin (3.4-5.0) g/dl Globulin gm/dL Albumin/Globulin Ratio (1-2) TSH 3rd Generation (0.358-3.74) uIU/mL Salicylates (2.8-20) mg/dL Urine Opiates Screen Negative (MBXBGB=236) Ur Buprenorphine Scrn Negative (CUTOFF=10) Ur Oxycodone Screen Negative (VJV2MO=149) Urine Methadone Screen Presumptive positive H (ZTX5DQ=435) Ur Propoxyphene Screen Negative (CFVDUF=025) Acetaminophen (10-30) ug/mL Ur Barbiturates Screen Negative (DJECLP=363) Ur Tricyclics Screen Negative (KBYEOI=908) Ur Phencyclidine Scrn Negative (CUTOFF=25) Ur Amphetamine Screen Negative (LBBQXN=408) U Methamphetamines Scrn Negative (SEQABD=519) U Benzodiazepines Scrn Presumptive positive H (JQUEBX=838) U Cocaine Metab Screen Negative (WXIZXX=577) U Marijuana (THC) Screen Presumptive positive H (CUTOFF=50) Ethyl Alcohol (0.00) gm% COVID-19 ([facility]) Negative (NEGATIVE) 10/21/19 10/21/19 Range/Units 03:05 03:05 WBC (4.23-9.07) K/mm3 RBC (4.63-6.08) M/mm3 Hgb (13.7-17.5) gm/dl Hct (40.1-51.0) % MCV (79.0-92.2) fl MCH (25.7-32.2) pg MCHC (32.2-35.5) g/dl RDW Std Deviation (35.1-43.9) fL Plt Count (163-337) K/mm3 MPV (9.4-12.3) fl Neutrophils % (Manual) (40-60) % Band Neutrophils % (0-10) % Lymphocytes % (Manual) (20-40) % Atypical Lymphs % % Monocytes % (Manual) (2-10) % Eosinophils % (Manual) (0.8-7.0) % Basophils % (Manual) (0.2-1.2) Platelet Estimate Plt Morphology Comment RBC Morph Comment Sodium 131 L (136-145) mEq/L Potassium 3.7 (3.5-5.1) mEq/L Chloride 95 L (98-107) mEq/L Carbon Dioxide 29 (21-32) mEq/L Anion Gap 10.7 (5-15) BUN 6 L (7-18) mg/dL Creatinine 0.8 (0.7-1.3) mg/dL Est Cr Clr Drug Dosing 185.66 mL/min Estimated GFR (MDRD) > 60 (>60) mL/min BUN/Creatinine Ratio 7.5 L (14-18) Glucose 92 (74-106) mg/dL Calcium 8.1 L (8.5-10.1) mg/dL Phosphorus 4.3 (2.6-4.7) mg/dL Magnesium 2.0 (1.8-2.4) mg/dl Total Bilirubin 0.1 L (0.2-1.0) mg/dL AST 10 L (15-37) U/L ALT 26 (16-63) U/L Alkaline Phosphatase 115 (46-116) U/L Creatine Kinase 85 (39-308) U/L Total Protein 6.7 (6.4-8.2) g/dl Albumin 3.0 L (3.4-5.0) g/dl Globulin 3.7 gm/dL Albumin/Globulin Ratio 0.8 L (1-2) TSH 3rd Generation 2.046 (0.358-3.74) uIU/mL Salicylates 4.0 (2.8-20) mg/dL Urine Opiates Screen (JNZHYN=298) Ur Buprenorphine Scrn (CUTOFF=10) Ur Oxycodone Screen (LWZ2FC=987) Urine Methadone Screen (SBV2OO=477) Ur Propoxyphene Screen (ECKFOD=155) Acetaminophen 0 L (10-30) ug/mL Ur Barbiturates Screen (QZODAQ=113) Ur Tricyclics Screen (TTBJRG=331) Ur Phencyclidine Scrn (CUTOFF=25) Ur Amphetamine Screen (SFLLZA=400) U Methamphetamines Scrn (FYBPLE=970) U Benzodiazepines Scrn (TBBDAX=225) U Cocaine Metab Screen (MIZTGW=785) U Marijuana (THC) Screen (CUTOFF=50) Ethyl Alcohol 0.00 (0.00) gm% COVID-19 ([facility]) (NEGATIVE) Medications Discontinued Medications Generic Name Dose Route Start Last Admin Trade Name Luiz PRN Reason Stop Dose Admin Methadone HCl 150 mg 10/21/19 05:08 10/21/19 05:31 Methadone PO 10/21/19 05:09 150 mg ONETIME STA Administration Medical Clearance: 10/21/19 02:38 As above, the patient has been in [place] for the past 3 years, and on methadone for the past 2 years, psychiatrically hospitalized in [facility] from 04/30/2019 through this past 10/19/2019. Since leaving [place], he has not had access to methadone, and he now feels that he is suffering from methadone withdrawal symptoms, including what he believes are withdrawal seizures. I should point out that opioids themselves lower seizure threshold, and withdraw from methadone would not be expected to precipitate seizures. He also reports that whenever he withdraws from methadone, he develops thoughts of harming himself, and he states that he has been considering cutting himself. He also states that he burned himself on his left forearm with a cigarette yesterday. He would like to be psychiatrically hospitalized. I have ordered a standard psychiatric medical clearance panel, along with a magnesium level, phosphorus level, CPK, as well as a test for the SARS-CoV-2 virus. 10/21/19 03:55 The patient's CBC is remarkable for a H/H mildly depressed at 10.7/32.3, with the remainder of his CBC being unremarkable. His CMP is remarkable for a sodium mildly depressed at 131, with the remainder of his CMP being unremarkable. His magnesium level is within normal limits at 2.0. His phosphorus level is within normal limits at 4.3. His CPK is within normal limits at 85. His TSH is within normal limits at 2.046. His acetaminophen level is 0. His salicylate level is within normal limits at 4.0. His EtOH level is 0.00. His urine drug screen is positive for methadone, benzodiazepines, and marijuana. His test for the SARS-CoV-2 virus is negative. As above, the patient's WBC count, blood glucose, and CPK are all within normal limits. All would be expected to be elevated if the patient recently suffered a seizure, therefore I do not think the patient has been suffering recent seizures. From my perspective, the patient is medically fit for transfer to a psychiatric hospital. 10/21/19 04:24 Case discussed with Rosaura at [facility] at 04:04. She reported that the patient is in their medical records. They last saw him in 2017, and there is no record of him having a seizure disorder. Case then discussed with Dr. Silva, Psychiatrist at [facility], at 04:16. He feels that the patient's suicidality is situational. He does not feel that the patient needs acute psychiatric admission. He recommended that we treat him with a single dose of methadone here, then have him follow-up at a methadone clinic, such as [facility] [place], tomorrow (today is , so the methadone clinics would be expected to be closed). 10/21/19 05:02 Reviewing the patient's paperwork, I see that in [place], he was prescribed L- Polamidon, the L-isomer of methadone, also known as levomethadone, which is twice as strong as methadone. It is only prescribed in [place] and [place]. The patient was taking 17 ml once a day, and, as best I can determine, the concentration of L-Polamidon is 5 mg/ml, indicating that the patient was taking 85 mg/day. This would be the equivalent of 170 mg of methadone per day. This is a relatively high dose, but not unheard of. While methadone tablets are in our computer, I do not know if we physically carry that medicine at this facility. I will endeavor to order 150 mg of oral methadone that the patient could be given one time here in the ED. It appears that [facility] [place] is in [place], however, looking it up on the web, there may be 2 methadone clinics here in [facility], and [facility]. 10/21/19 05:30 Notified by Salma JOHNSON that we do have methadone. She will give the patient 150 mg, as ordered. Following that, my plan would be to keep the patient in the ED until close to 7:00, to make sure that he does not become overly sedated due to a miscalculation on my part. If he tolerates the methadone well, I will discharge him with a referral to a local methadone clinic. 10/21/19 07:33 The patient is doing well, with no suggestion of overdose. We will endeavor to get him some breakfast prior to discharge. He has already contacted [facility] [place] in [place], but, as above, I will give him the contact information for both [facility] and [facility] here in [place]. Departure - Departure Time of Disposition: 07:34 Disposition: Home, Self-Care 01 Condition: Good Clinical Impression: Methadone withdrawal, Suicidal ideation, QT prolongation, Marijuana use - Discharge Information *PRESCRIPTION DRUG MONITORING PROGRAM REVIEWED*: Not Applicable *COPY OF PRESCRIPTION DRUG MONITORING REPORT IN PATIENT NICOLE: Not Applicable Referrals: PCP,None [Primary Care Provider] - Forms: ED Department Discharge Additional Instructions: You were seen in the emergency room for methadone withdrawal and suicidal ideation. You were also concerned that you may have been experiencing seizures. Work-up in the ER included blood work, a urine drug screen, an ECG, and a test for the SARS-CoV-2 virus. Your work-up was, for the most part, unremarkable. We found no evidence that you recently suffered a seizure. Your case was discussed with a Psychiatrist in [place]. They did not feel that you required emergency psychiatric admission. You were given a dose of methadone in the ER. As discussed, we recommend that you follow-up with one of the following facilities tomorrow morning, to arrange for your methadone: [facility] [address] [place] [phone] [facility] [address] [place] [phone] [facility] [place] [address] [place] [phone] If any other problems, please do not hesitate to return to the ER. Sepsis Event Note (ED) - Evaluation Sepsis Screening Result: No Definite Risk - Focused Exam Vital Signs: Vital Signs Temp Pulse Resp BP Pulse Ox 10/21/19 01:58 36.9 C 97 20 144/88 H 95 - My Orders Last 24 Hours: My Active Orders 10/21/19 02:36 EKG Documentation Completion [RC] STAT - Assessment/Plan Last 24 Hours: My Active Orders 10/21/19 02:36 EKG Documentation Completion [RC] STAT
[2019-10-21 03:45] LABS: ACETAMINOPHEN 0 ug/mL (10-30)
[2019-10-21] MEDS ORDERED: Methadone 10 MG Tab PO STA (05:08)
== END 2019-10-21 07:50 | disposition home or self-care (01) ==
LOC: JD.ED 01:50
DX: F11.23 Opioid dependence with withdrawal (principal); R45.851 Suicidal ideations; R94.31 Abnormal electrocardiogram [ECG] [EKG]; F12.90 Cannabis use, unspecified, uncomplicated; F41.9 Anxiety disorder, unspecified; F32.9 Major depressive disorder, single episode, unspecified; F17.210 Nicotine dependence, cigarettes, uncomplicated; Z20.828 Contact with and (suspected) exposure to other viral communicable diseases; Z79.899 Other long term (current) drug therapy
CPT/HCPCS: 36415; 80053; 80306; 80307; 82550; 83735; 84100; 84443; 85007; 85027; 87635; 93005; 99284; A9270; 93010; U0002

== ENCOUNTER 2021-03-02 19:14 | Emergency (ER) | payer MEDICAID, MEDICARE ==
[2021-03-02] MEDS ORDERED: Diphtheria,Pertussis(Acell),Tetanus Vaccine 0.5 ML Syringe IM ONE (20:19)
[2021-03-02 20:34] LABS: ACETAMINOPHEN 0 ug/mL (10-30)
== END 2021-03-02 20:39 | disposition home or self-care (01) ==
LOC: JD.ED 19:14
DX: F19.10 Other psychoactive substance abuse, uncomplicated (principal); Z23 Encounter for immunization; Z20.822 Contact with and (suspected) exposure to COVID-19
CPT/HCPCS: 36415; 80053; 80143; 80179; 80307; 84443; 85007; 85027; 90471; 90715; 99284-25; U0002

== ENCOUNTER 2021-05-04 16:59 | Emergency (ER) | payer MEDICAID ==
[2021-05-04] MEDS ORDERED: Sucralfate 1 GM Tab PO ONE (17:57)
[2021-05-04] MEDS ORDERED: Pantoprazole 40 MG Tab.CR PO ONE (18:30)
[2021-05-04 20:02] LABS: ACETAMINOPHEN 0 ug/mL (10-30)
[2021-05-05] MEDS ORDERED: Pantoprazole 40 MG Tab.CR PO ONE (17:56)
== END 2021-05-04 21:05 | disposition other institution (70) ==
LOC: JD.ED 16:59
DX: F32.A Depression, unspecified (principal); F20.9 Schizophrenia, unspecified; R45.851 Suicidal ideations; Z20.822 Contact with and (suspected) exposure to COVID-19
CPT/HCPCS: 36415; 80053; 80143; 80179; 80306; 80307; 81001; 84443; 85025; 87635; 93005; 99284; A9270; 99285; U0002

== ENCOUNTER 2021-06-15 15:08 | Emergency (ER) | payer MEDICAID ==
[2021-06-15 16:33] LABS: ACETAMINOPHEN 0 ug/mL (10-30)
[2021-06-15] MEDS ORDERED: Potassium Chloride 20 MEQ Tab.ER PO ONE (16:52)
== END 2021-06-15 18:45 ==
LOC: JD.ED 15:08
DX: F20.0 Paranoid schizophrenia (principal); K21.9 Gastro-esophageal reflux disease without esophagitis; F32.A Depression, unspecified; Z79.899 Other long term (current) drug therapy; Z20.822 Contact with and (suspected) exposure to COVID-19
CPT/HCPCS: 36415; 80053; 80143; 80179; 80306; 80307; 84443; 85025; 86803; 87635; 99285; A9270; U0002

== ENCOUNTER 2021-07-02 11:49 | Emergency (ER) | payer MEDICAID ==
[2021-07-02] MEDS ORDERED: Haloperidol Lactate 5 MG/ML SDV IM ONE (11:58)
[2021-07-02] MEDS ORDERED: LORazepam 2 MG/ML SDV IM ONE (11:59)
[2021-07-02] MEDS ORDERED: OLANZapine 10 MG Vial IM ONE (12:13)
[2021-07-02] MEDS ORDERED: cefTRIAXone 1 GM Vial IM ONE (12:53)
[2021-07-02 13:04] LABS: ACETAMINOPHEN 0 ug/mL (10-30)
== END 2021-07-02 14:00 ==
LOC: JD.ED 11:49
DX: S91.052A Open bite, left ankle, initial encounter (principal); F20.9 Schizophrenia, unspecified; R45.6 Violent behavior; F19.10 Other psychoactive substance abuse, uncomplicated; K21.9 Gastro-esophageal reflux disease without esophagitis; Z90.49 Acquired absence of other specified parts of digestive tract; Z79.899 Other long term (current) drug therapy; W54.0XXA Bitten by dog, initial encounter
CPT/HCPCS: 36415; 80053; 80143; 80179; 80307; 85025; 96372; 99284; J0696; J2060; J3490; 93010; 99285

== ENCOUNTER 2021-11-26 07:07 | Emergency (ER) | payer MEDICAID | END 2021-11-27 01:44 | disposition home or self-care (01) | LOC: JD.ED 07:07 | DX: T43.292A Poisoning by other antidepressants, intentional self-harm, initial encounter (principal); T42.6X2A Poisoning by other antiepileptic and sedative-hypnotic drugs, intentional self-harm, initial encounter; Z79.899 Other long term (current) drug therapy; F17.210 Nicotine dependence, cigarettes, uncomplicated; Z20.822 Contact with and (suspected) exposure to COVID-19 | CPT/HCPCS: 36415; 80053; 80143; 80179; 80306; 80307; 85025; 93005; 93010; 99283; 99284; U0002 ==

== ENCOUNTER 2021-12-16 08:03 | Emergency (ER) | payer MEDICAID ==
[2021-12-16] MEDS ORDERED: Diphtheria,Pertussis(Acell),Tetanus Vaccine 0.5 ML Syringe IM ONE (08:33)
[2021-12-16] MEDS ORDERED: LORazepam 2 MG/ML SDV IVPUSH ONE (08:36)
[2021-12-16] MEDS ORDERED: Dextrose 5%-0.9% NaCl 1,000 ML IV SCH (08:45)
[2021-12-16] MEDS ORDERED: Metoclopramide 10 MG/2 ML SDV IVPUSH ONE (09:04)
[2021-12-16] MEDS ORDERED: Ketorolac 30 MG/ML SDV IVPUSH SCH (09:15)
[2021-12-16] MEDS ORDERED: Lactated Ringers 1,000 ML IV SCH (12:15)
== END 2021-12-16 15:40 | disposition other institution (70) ==
LOC: JD.ED 08:03 → MERGE 08:03 → JD.ED 15:40
DX: S51.812A Laceration without foreign body of left forearm, initial encounter (principal); F11.23 Opioid dependence with withdrawal; J45.909 Unspecified asthma, uncomplicated; E66.9 Obesity, unspecified; Z68.30 Body mass index [BMI] 30.0-30.9, adult; Z23 Encounter for immunization; W26.0XXA Contact with knife, initial encounter; Y92.009 Unspecified place in unspecified non-institutional (private) residence as the place of occurrence of the external cause
CPT/HCPCS: 36415; 70450; 80053; 80306; 80307; 85025; 90471; 90715; 96361; 96374; 96375; 99285; J1885; J2060; J2765; J7042; J7120; G0008

== ENCOUNTER 2021-12-18 15:51 | Emergency (ER) | payer MEDICAID ==
[2021-12-18] MEDS ORDERED: Sodium Chloride 0.9% 10 ML Syringe FLUSH PRN (16:09)
[2021-12-18] MEDS ORDERED: Ketorolac 30 MG/ML SDV IVPUSH ONE (16:27)
[2021-12-18 18:51] LABS: CORONAVIRUS COVID-19 NAA NEGATIVE (NEGATIVE)
== END 2021-12-18 19:45 | disposition home or self-care (01) ==
LOC: JD.ED 15:51
DX: R55 Syncope and collapse (principal); E66.9 Obesity, unspecified; Z68.27 Body mass index [BMI] 27.0-27.9, adult; F17.210 Nicotine dependence, cigarettes, uncomplicated; Z20.822 Contact with and (suspected) exposure to COVID-19; Z79.899 Other long term (current) drug therapy; Z90.49 Acquired absence of other specified parts of digestive tract
CPT/HCPCS: 0240U; 36415; 70450; 71045; 80053; 80143; 80179; 80306; 80307; 81003; 83735; 84443; 84484; 85025; 93005; 96374; 99284; J1885; J3490

== ENCOUNTER 2022-01-05 10:50 | Emergency (ER) | payer MEDICAID | END 2022-01-05 15:28 | disposition home or self-care (01) | LOC: JD.ED 10:50 | DX: M25.571 Pain in right ankle and joints of right foot (principal); K21.9 Gastro-esophageal reflux disease without esophagitis; E03.9 Hypothyroidism, unspecified; E66.9 Obesity, unspecified; Z68.31 Body mass index [BMI] 31.0-31.9, adult; Z79.899 Other long term (current) drug therapy; Z79.01 Long term (current) use of anticoagulants | CPT/HCPCS: 36415; 73610-26-RT; 73610-RT; 80053; 83735; 84550; 85025; 86140; 93971-26-RT; 93971-RT; 99284 ==

== ENCOUNTER 2022-01-07 16:41 | Emergency (ER) | payer MEDICAID | END 2022-01-07 18:02 | LOC: JD.ED 16:41 | DX: Z53.21 Procedure and treatment not carried out due to patient leaving prior to being seen by health care provider (principal) ==

== ENCOUNTER 2022-01-09 11:35 | Emergency (ER) | payer MEDICAID ==
[2022-01-09] MEDS ORDERED: OLANZapine 10 MG Vial IM ONE (14:41)
== END 2022-01-09 14:55 ==
LOC: JD.ED 11:35
DX: R44.0 Auditory hallucinations (principal); R45.851 Suicidal ideations; K21.9 Gastro-esophageal reflux disease without esophagitis; E03.9 Hypothyroidism, unspecified; F17.210 Nicotine dependence, cigarettes, uncomplicated; Z20.822 Contact with and (suspected) exposure to COVID-19
CPT/HCPCS: 36415; 80053; 80143; 80179; 80306; 80307; 84443; 85025; 93005; 96372; 99285; J3490; U0002

== ENCOUNTER 2022-01-27 11:53 | Emergency (ER) | payer MEDICAID ==
[2022-01-27] MEDS ORDERED: Activated Charcoal/Water Susp 50 GM/240 ML Tube PO ONE (12:21)
[2022-01-27] MEDS: Sodium Chloride 0.9% 10 ML Syringe FLUSH PRN (12:40)
[2022-01-27 13:24] LABS: CORONAVIRUS COVID-19 NAA POSITIVE (NEGATIVE)
[2022-01-27] MEDS ORDERED: Ondansetron 4 MG/2 ML SDV IVPUSH ONE (15:17)
[2022-01-27] MEDS ORDERED: LORazepam 2 MG/ML SDV IVPUSH ONE ×2 (15:17→18:29)
[2022-01-27] MEDS ORDERED: Acetaminophen 325 MG Tab PO ONE (17:06)
[2022-01-27] MEDS ORDERED: Potassium Chloride 20 MEQ Tab.ER PO ONE (22:37)
[2022-01-28] MEDS ORDERED: Potassium Chloride 20 MEQ Tab.ER ONE (06:24)
[2022-01-28] MEDS ORDERED: LORazepam 2 MG/ML SDV IVPUSH ONE ×2 (14:53→21:37)
[2022-01-28] MEDS ORDERED: Ibuprofen 600 MG Tab PO ONE (15:07)
[2022-01-28] MEDS: Sodium Chloride 0.9% 10 ML Syringe FLUSH PRN (21:45)
[2022-01-29] MEDS ORDERED: LORazepam 2 MG/ML SDV IVPUSH ONE (04:08)
[2022-01-29] MEDS ORDERED: LORazepam 1 MG Tab PO ONE (04:17)
== END 2022-01-29 09:33 | disposition home or self-care (01) ==
LOC: JD.ED 11:53
DX: T43.212A Poisoning by selective serotonin and norepinephrine reuptake inhibitors, intentional self-harm, initial encounter (principal); U07.1 COVID-19; J45.909 Unspecified asthma, uncomplicated; E66.9 Obesity, unspecified; Z68.32 Body mass index [BMI] 32.0-32.9, adult; Z72.0 Tobacco use; Z79.899 Other long term (current) drug therapy
CPT/HCPCS: 0241U; 36415; 80053; 80143; 80179; 80307; 84443; 85025; 93005; 99285; A9270; J2060; J2405; J3490

== ENCOUNTER 2022-02-28 01:52 | Emergency (ER) | payer MEDICAID ==
[2022-02-28] MEDS ORDERED: LORazepam 2 MG/ML SDV IVPUSH ONE (02:06)
[2022-02-28] MEDS ORDERED: Metoclopramide 10 MG/2 ML SDV IVPUSH ONE (02:07)
[2022-02-28] MEDS ORDERED: Sodium Chloride 0.9% 1,000 ML IV ONE (02:07)
== END 2022-02-28 10:02 | disposition home or self-care (01) ==
LOC: JD.ED 01:52
DX: F22 Delusional disorders (principal); T43.655A Adverse effect of methamphetamines, initial encounter; R40.4 Transient alteration of awareness; K21.9 Gastro-esophageal reflux disease without esophagitis; E03.9 Hypothyroidism, unspecified; E66.9 Obesity, unspecified; F17.210 Nicotine dependence, cigarettes, uncomplicated; Z86.16 Personal history of COVID-19; Z68.31 Body mass index [BMI] 31.0-31.9, adult
CPT/HCPCS: 36415; 80053; 80143; 80179; 80307; 85025; 93005; 96361; 96374; 96375; 99285; J2060; J2765; J7030; 93010; 99283

== ENCOUNTER 2022-03-01 11:27 | Emergency (ER) | payer MEDICAID ==
[2022-03-01] MEDS ORDERED: Sodium Chloride 0.9% 1,000 ML IV STA (12:29)
[2022-03-01] MEDS ORDERED: LORazepam 2 MG/ML SDV IVPUSH ONE ×2 (13:06→13:47)
== END 2022-03-02 10:19 | disposition home or self-care (01) ==
LOC: JD.ED 11:27
DX: T42.6X2A Poisoning by other antiepileptic and sedative-hypnotic drugs, intentional self-harm, initial encounter (principal); T43.592A Poisoning by other antipsychotics and neuroleptics, intentional self-harm, initial encounter; F19.10 Other psychoactive substance abuse, uncomplicated; J45.909 Unspecified asthma, uncomplicated; Z86.711 Personal history of pulmonary embolism; E66.9 Obesity, unspecified; Z68.25 Body mass index [BMI] 25.0-25.9, adult; Z79.01 Long term (current) use of anticoagulants; Z72.0 Tobacco use; Z20.822 Contact with and (suspected) exposure to COVID-19
CPT/HCPCS: 36415; 80053; 80143; 80164; 80179; 80307; 82140; 84443; 85007; 85027; 86140; 87635; 93005; 96361; 96374; 99285; J2060; J7030; U0002

== ENCOUNTER 2022-03-04 14:45 | Emergency (ER) | payer MEDICAID ==
[2022-03-04] MEDS ORDERED: QUEtiapine 100 MG Tab PO ONE (21:00)
== END 2022-03-04 21:02 ==
LOC: JD.ED 14:45
DX: R45.851 Suicidal ideations (principal); F19.10 Other psychoactive substance abuse, uncomplicated; R44.0 Auditory hallucinations; J45.909 Unspecified asthma, uncomplicated; K21.9 Gastro-esophageal reflux disease without esophagitis; E03.9 Hypothyroidism, unspecified; Z86.711 Personal history of pulmonary embolism; Z79.01 Long term (current) use of anticoagulants; Z72.0 Tobacco use; Z79.899 Other long term (current) drug therapy
CPT/HCPCS: 36415; 80053; 80143; 80179; 80306; 80307; 81003; 85025; 99284; A9270

== ENCOUNTER 2022-03-07 16:31 | Emergency (ER) | payer MEDICAID ==
[2022-03-07] MEDS ORDERED: LORazepam 1 MG Tab PO ONE ×2 (17:47→21:16)
== END 2022-03-07 19:32 | disposition other institution (70) ==
LOC: JD.ED 16:31
DX: F20.9 Schizophrenia, unspecified (principal); R45.851 Suicidal ideations; E66.9 Obesity, unspecified; Z68.30 Body mass index [BMI] 30.0-30.9, adult; Z79.899 Other long term (current) drug therapy; Z86.16 Personal history of COVID-19; Z90.49 Acquired absence of other specified parts of digestive tract
CPT/HCPCS: 36415; 80053; 80143; 80179; 80306; 80307; 84443; 85025; 85610; 93005; 99285; A9270

== ENCOUNTER 2022-05-02 15:54 | Emergency (ER) | payer MEDICAID ==
[2022-05-02] MEDS ORDERED: LORazepam 1 MG Tab PO ONE (16:46)
[2022-05-02] MEDS ORDERED: LORazepam 2 MG/ML SDV IVPUSH ONE (17:11)
[2022-05-02] MEDS ORDERED: LORazepam 2 MG/ML SDV ONE (17:11)
[2022-05-02] MEDS: LORazepam 2 MG/ML SDV IVPUSH PRN ×2 (17:51→19:22)
[2022-05-02] MEDS ORDERED: OLANZapine 5 MG Tab PO ONE (19:27)
[2022-05-03] MEDS ORDERED: levETIRAcetam Soln 500 MG/5 ML Cup PO ONE (00:41)
== END 2022-05-03 01:03 | disposition home or self-care (01) ==
LOC: JD.ED 15:54
DX: T42.6X2A Poisoning by other antiepileptic and sedative-hypnotic drugs, intentional self-harm, initial encounter (principal); S51.812A Laceration without foreign body of left forearm, initial encounter; E66.9 Obesity, unspecified; Z68.30 Body mass index [BMI] 30.0-30.9, adult; Z72.0 Tobacco use; Z20.822 Contact with and (suspected) exposure to COVID-19
CPT/HCPCS: 36415; 70450; 80053; 80143; 80179; 80306; 80307; 83605; 84443; 85025; 87635; 93005; 96374; 96376; 99285; A9270; J2060; 93010; 99284; U0002

== ENCOUNTER 2022-05-05 07:42 | Emergency (ER) | payer MEDICAID ==
[2022-05-05] MEDS ORDERED: levETIRAcetam 500 MG Tab PO ONE (08:24)
[2022-05-05] MEDS ORDERED: Potassium Chloride 20 MEQ Tab.ER PO ONE (09:11)
== END 2022-05-05 09:48 | disposition home or self-care (01) ==
LOC: JD.ED 07:42
DX: R45.851 Suicidal ideations (principal); E66.9 Obesity, unspecified; Z68.30 Body mass index [BMI] 30.0-30.9, adult; Z86.16 Personal history of COVID-19; Z72.0 Tobacco use
CPT/HCPCS: 36415; 80053; 80306; 80307; 83735; 85025; 99283; A9270; 99284

== ENCOUNTER 2022-05-12 00:24 | Emergency (ER) | payer MEDICAID ==
[2022-05-12] MEDS ORDERED: LORazepam 1 MG Tab PO ONE (05:30)
== END 2022-05-12 11:25 ==
LOC: JD.ED 00:24
DX: T42.6X2A Poisoning by other antiepileptic and sedative-hypnotic drugs, intentional self-harm, initial encounter (principal); T50.7X2A Poisoning by analeptics and opioid receptor antagonists, intentional self-harm, initial encounter; S51.812A Laceration without foreign body of left forearm, initial encounter; F41.9 Anxiety disorder, unspecified; J45.909 Unspecified asthma, uncomplicated; Z86.711 Personal history of pulmonary embolism; E66.9 Obesity, unspecified; Z68.30 Body mass index [BMI] 30.0-30.9, adult; Z86.16 Personal history of COVID-19; Z79.01 Long term (current) use of anticoagulants; Z72.0 Tobacco use; Z79.899 Other long term (current) drug therapy
CPT/HCPCS: 36415; 80053; 80143; 80179; 80306; 80307; 85025; 99285

== ENCOUNTER 2022-06-03 16:30 | Emergency (ER) | payer MEDICAID | END 2022-06-03 18:52 | disposition other institution (70) | LOC: JD.ED 16:30 | DX: R45.851 Suicidal ideations (principal); F10.10 Alcohol abuse, uncomplicated; J45.909 Unspecified asthma, uncomplicated; E66.9 Obesity, unspecified; F17.210 Nicotine dependence, cigarettes, uncomplicated; Z68.30 Body mass index [BMI] 30.0-30.9, adult; Z86.16 Personal history of COVID-19; Z79.899 Other long term (current) drug therapy | CPT/HCPCS: 36415; 80053; 80143; 80179; 80306; 80307; 84443; 85007; 85027; 93005; 93010; 99285 ==

== ENCOUNTER 2022-06-16 03:26 | Emergency (ER) | payer MEDICAID ==
[2022-06-16 04:13] LABS: ESTIMATED GFR 96 mL/min (>60)
[2022-06-16 04:14] LABS: ACETAMINOPHEN 0 ug/mL (10-30)
[2022-06-16] MEDS ORDERED: Ibuprofen 600 MG Tab PO ONE (04:25)
== END 2022-06-16 04:37 | disposition home or self-care (01) ==
LOC: JD.ED 03:26
DX: R07.89 Other chest pain (principal); J45.909 Unspecified asthma, uncomplicated; E66.9 Obesity, unspecified; Z68.28 Body mass index [BMI] 28.0-28.9, adult; Z86.16 Personal history of COVID-19; Z79.899 Other long term (current) drug therapy; Z79.01 Long term (current) use of anticoagulants
CPT/HCPCS: 36415; 71045; 71045-26; 80053; 80143; 80179; 80307; 84484; 85025; 93005; 99285

== ENCOUNTER 2022-06-16 17:37 | Emergency (ER) | payer MEDICAID | END 2022-06-16 18:59 | disposition left against medical advice (07) | LOC: JD.ED 17:37 | DX: Z53.21 Procedure and treatment not carried out due to patient leaving prior to being seen by health care provider (principal) ==

== ENCOUNTER 2022-06-16 19:31 | Emergency (ER) | payer MEDICAID ==
[2022-06-16 20:14] LABS: BASOPHILS ABSOLUTE AUTO 0.03 K/mm3 (0.01-0.08); BASOPHILS PERCENT AUTO 0.3 % (0.1-1.2); EOSINOPHILS ABSOLUTE AUTO 0.08 K/mm3 (0.04-0.54); EOSINOPHILS PERCENT AUTO 0.7 (0.8-7.0); HEMATOCRIT 39.7 % (40.1-51.0); HEMOGLOBIN 12.9 gm/dl (13.7-17.5); IMMATURE GRAN ABSOLUTE AUTO 0.02 K/mm3 (0.00-0.10); IMMATURE GRAN PERCENT AUTO 0.2 % (<=1.0); LYMPHOCYTES ABSOLUTE AUTO 2.08 K/mm3 (1.32-3.57); LYMPHOCYTES PERCENT AUTO 19.2 % (21.8-53.1); MEAN CORPUSCULAR HEMOGLOBIN 27.3 pg (25.7-32.2); MEAN CORPUSCULAR HGB CONC 32.5 g/dl (32.2-35.5); MEAN CORPUSCULAR VOLUME 83.9 fl (79.0-92.2); MEAN PLATELET VOLUME 9.9 fl (9.4-12.3); MONOCYTES ABSOLUTE AUTO 1.39 K/mm3 (0.30-0.82); MONOCYTES PERCENT AUTO 12.8 % (5.3-12.2); NEUTROPHILS ABSOLUTE AUTO 7.26 K/mm3 (1.78-5.38); NEUTROPHILS PERCENT AUTO 66.8 % (34.0-67.9); PLATELET COUNT,PLT 318 K/mm3 (163-337); RED BLOOD CELL COUNT 4.73 M/mm3 (4.63-6.08); WHITE BLOOD CELL COUNT,WBC 10.86 K/mm3 (4.23-9.07)
[2022-06-16] MEDS ORDERED: Lidocaine 1.5% with EPINEPHrine 1:200,000 5 ML Amp INJECT ONE (20:20)
[2022-06-16] MEDS ORDERED: Lidocaine 1% 10 ML MDV INJECT ONE (20:26)
[2022-06-16] MEDS ORDERED: LORazepam 1 MG Tab PO ONE (20:42)
[2022-06-16 20:52] LABS: ALBUMIN 3.6 g/dl (3.4-5.0); ANION GAP 14.8 (5-15); BILIRUBIN TOTAL 0.4 mg/dL (0.2-1.0); CALCIUM 8.4 mg/dL (8.5-10.1); EST CRCL DRUG DOSING (CG) 145.99 mL/min; POTASSIUM,K 2.8 mEq/L (3.5-5.1); PROTEIN TOTAL,TP 7.3 g/dl (6.4-8.2); TSH 1.866 uIU/mL (0.358-3.74)
[2022-06-16 21:21] LABS: BARBITURATE SCREEN,URINE NEGATIVE ({null, CUTOFF=200}); BENZODIAZEPINES SCREEN,URINE NEGATIVE ({null, CUTOFF=150}); BUPRENORPHINE SCREEN,URINE NEGATIVE ({null, CUTOFF=10}); METHADONE SCREEN, URINE NEGATIVE ({null, CUT0FF=200}); METHAMPHETAMINES SCREEN, URINE NEGATIVE ({null, CUTOFF=500}); OXYCODONE SCREEN,URINE NEGATIVE ({null, CUT0FF=100}); PROPOXYPHENE SCREEN,URINE NEGATIVE ({null, CUTOFF=300}); THC SCREEN,URINE 20 NG/ML NEGATIVE ({null, CUTOFF=50})
[2022-06-16 21:30] LABS: AMPHETAMINES SCREEN, URINE NEGATIVE ({null, CUTOFF=500})
== END 2022-06-16 23:08 | disposition other institution (70) ==
LOC: JD.ED 19:31
DX: S61.512A Laceration without foreign body of left wrist, initial encounter (principal); J45.909 Unspecified asthma, uncomplicated; E66.9 Obesity, unspecified; Z86.16 Personal history of COVID-19; Z68.26 Body mass index [BMI] 26.0-26.9, adult; X78.9XXA Intentional self-harm by unspecified sharp object, initial encounter
CPT/HCPCS: 12002; 36415; 80053; 80143; 80179; 80306; 80307; 84443; 85025; 99285; A9270; J3490

== ENCOUNTER 2022-06-20 07:08 | Emergency (ER) | payer MEDICAID ==
[2022-06-20] MEDS ORDERED: Sodium Chloride 0.9% 10 ML Syringe FLUSH PRN (08:01)
== END 2022-06-20 10:00 | disposition home or self-care (01) ==
LOC: JD.ED 07:08
DX: R51.9 Headache, unspecified (principal); J45.909 Unspecified asthma, uncomplicated; E66.9 Obesity, unspecified; Z68.29 Body mass index [BMI] 29.0-29.9, adult; Z86.16 Personal history of COVID-19
CPT/HCPCS: 70450; 70450-26; 99283; 99285

== ENCOUNTER 2022-06-26 18:46 | Emergency (ER) | payer MEDICAID ==
[2022-06-26 19:36] LABS: BASOPHILS ABSOLUTE AUTO 0.03 K/mm3 (0.01-0.08); BASOPHILS PERCENT AUTO 0.4 % (0.1-1.2); EOSINOPHILS ABSOLUTE AUTO 0.19 K/mm3 (0.04-0.54); EOSINOPHILS PERCENT AUTO 2.4 (0.8-7.0); HEMATOCRIT 39.2 % (40.1-51.0); HEMOGLOBIN 12.7 gm/dl (13.7-17.5); IMMATURE GRAN ABSOLUTE AUTO 0.01 K/mm3 (0.00-0.10); IMMATURE GRAN PERCENT AUTO 0.1 % (<=1.0); LYMPHOCYTES ABSOLUTE AUTO 2.93 K/mm3 (1.32-3.57); LYMPHOCYTES PERCENT AUTO 37.8 % (21.8-53.1); MEAN CORPUSCULAR HEMOGLOBIN 27.2 pg (25.7-32.2); MEAN CORPUSCULAR HGB CONC 32.4 g/dl (32.2-35.5); MEAN CORPUSCULAR VOLUME 83.9 fl (79.0-92.2); MEAN PLATELET VOLUME 9.5 fl (9.4-12.3); MONOCYTES PERCENT AUTO 11.6 % (5.3-12.2); NEUTROPHILS PERCENT AUTO 47.7 % (34.0-67.9); PLATELET COUNT,PLT 363 K/mm3 (163-337); RED BLOOD CELL COUNT 4.67 M/mm3 (4.63-6.08); WHITE BLOOD CELL COUNT,WBC 7.76 K/mm3 (4.23-9.07)
[2022-06-26 20:06] LABS: A/G RATIO 0.9 (1-2); ALBUMIN 3.5 g/dl (3.4-5.0); ANION GAP 12.1 (5-15); BILIRUBIN TOTAL 0.2 mg/dL (0.2-1.0); CALCIUM 8.6 mg/dL (8.5-10.1); EST CRCL DRUG DOSING (CG) 145.99 mL/min; MAGNESIUM 1.9 mg/dL (1.8-2.4); POTASSIUM,K 4.1 mEq/L (3.5-5.1); PROTEIN TOTAL,TP 7.3 g/dl (6.4-8.2); TSH 2.485 uIU/mL (0.358-3.74)
[2022-06-26 20:42] LABS: APPEARANCE,URINE CLEAR (Clear); BILIRUBIN,URINE NEGATIVE (Negative); COLOR,URINE YELLOW (Yellow); GLUCOSE,URINE NEGATIVE (Negative); KETONES,URINE NEGATIVE (Negative); LEUKOCYTE ESTERASE,URINE NEGATIVE (Negative); NITRITE,URINE NEGATIVE (Negative); OCCULT BLOOD,URINE NEGATIVE (Negative); PROTEIN,URINE NEGATIVE (Negative); UROBILINOGEN,URINE 0.2 (0.2-1.0)
[2022-06-26 20:58] LABS: EPITHELIAL CELLS,URINE NOT SEEN /hpf (0-5); RBC,URINE 0-5 /hpf (0-5); WBC,URINE 0-5 /hpf (0-5)
[2022-06-26 20:59] LABS: AMORPHOUS SEDIMENT,URINE MODERATE /hpf (NOT SEEN); BACTERIA,URINE RARE /hpf (FEW); MUCUS,URINE FEW /hpf (FEW)
[2022-06-26 21:07] LABS: BARBITURATE SCREEN,URINE NEGATIVE (CUTOFF=200); BENZODIAZEPINES SCREEN,URINE NEGATIVE (CUTOFF=150); BUPRENORPHINE SCREEN,URINE NEGATIVE (CUTOFF=10); METHADONE SCREEN, URINE NEGATIVE (CUT0FF=200); METHAMPHETAMINES SCREEN, URINE NEGATIVE (CUTOFF=500); OXYCODONE SCREEN,URINE NEGATIVE (CUT0FF=100); PROPOXYPHENE SCREEN,URINE NEGATIVE (CUTOFF=300); THC SCREEN,URINE 20 NG/ML NEGATIVE (CUTOFF=50)
[2022-06-26 21:10] LABS: AMPHETAMINES SCREEN, URINE NEGATIVE (CUTOFF=500)
== END 2022-06-26 21:37 | disposition other institution (70) ==
LOC: JD.ED 18:46
DX: F39 Unspecified mood [affective] disorder (principal); J45.909 Unspecified asthma, uncomplicated; E66.9 Obesity, unspecified; F17.210 Nicotine dependence, cigarettes, uncomplicated; Z79.01 Long term (current) use of anticoagulants; Z86.718 Personal history of other venous thrombosis and embolism; Z86.711 Personal history of pulmonary embolism; Z86.16 Personal history of COVID-19; Z68.29 Body mass index [BMI] 29.0-29.9, adult
CPT/HCPCS: 36415; 80053; 80306; 81001; 83735; 84443; 85025; 99284; 99285

== ENCOUNTER 2022-07-13 11:10 | Emergency (ER) | payer MEDICAID | END 2022-07-13 12:27 | disposition home or self-care (01) | LOC: JD.ED 11:10 | DX: Z76.0 Encounter for issue of repeat prescription (principal); J45.909 Unspecified asthma, uncomplicated; E66.9 Obesity, unspecified; Z68.41 Body mass index [BMI] 40.0-44.9, adult; Z86.16 Personal history of COVID-19; Z79.899 Other long term (current) drug therapy | CPT/HCPCS: 99281; 99283 ==

== ENCOUNTER 2022-07-22 07:32 | Emergency (ER) | payer MEDICAID ==
[2022-07-22] MEDS ORDERED: Acetaminophen/HYDROcodone 325-5 MG Tab PO ONE (07:57)
== END 2022-07-22 10:18 | disposition home or self-care (01) ==
LOC: JD.ED 07:32
DX: S51.812A Laceration without foreign body of left forearm, initial encounter (principal); S16.1XXA Strain of muscle, fascia and tendon at neck level, initial encounter; S00.83XA Contusion of other part of head, initial encounter; J45.909 Unspecified asthma, uncomplicated; F17.210 Nicotine dependence, cigarettes, uncomplicated; E66.9 Obesity, unspecified; Z68.29 Body mass index [BMI] 29.0-29.9, adult; Z86.16 Personal history of COVID-19; Z79.01 Long term (current) use of anticoagulants; Z79.899 Other long term (current) drug therapy; Y04.0XXA Assault by unarmed brawl or fight, initial encounter; Y92.524 Gas station as the place of occurrence of the external cause
CPT/HCPCS: 70450; 70486; 72125; 99284; A9270

== ENCOUNTER 2022-07-27 01:13 | Emergency (ER) | payer MEDICAID ==
[2022-07-27] MEDS ORDERED: Sodium Chloride 0.9% 10 ML Syringe FLUSH PRN (01:48)
[2022-07-27] MEDS ORDERED: Ondansetron 4 MG/2 ML SDV IVPUSH ONE (01:48)
[2022-07-27] MEDS ORDERED: Lactated Ringers 1,000 ML IV ONE (01:50)
[2022-07-27] MEDS ORDERED: Sodium Chloride 0.9% 1,000 ML IV SCH (02:00)
[2022-07-27 02:13] LABS: BASOPHILS ABSOLUTE AUTO 0.03 K/mm3 (0.01-0.08); BASOPHILS PERCENT AUTO 0.3 % (0.1-1.2); EOSINOPHILS ABSOLUTE AUTO 0.26 K/mm3 (0.04-0.54); EOSINOPHILS PERCENT AUTO 2.5 (0.8-7.0); HEMATOCRIT 40.7 % (40.1-51.0); IMMATURE GRAN ABSOLUTE AUTO 0.02 K/mm3 (0.00-0.10); IMMATURE GRAN PERCENT AUTO 0.2 % (<=1.0); LYMPHOCYTES ABSOLUTE AUTO 2.43 K/mm3 (1.32-3.57); LYMPHOCYTES PERCENT AUTO 23.7 % (21.8-53.1); MEAN CORPUSCULAR HGB CONC 31.9 g/dl (32.2-35.5); MEAN CORPUSCULAR VOLUME 84.6 fl (79.0-92.2); MEAN PLATELET VOLUME 9.5 fl (9.4-12.3); MONOCYTES ABSOLUTE AUTO 0.79 K/mm3 (0.30-0.82); MONOCYTES PERCENT AUTO 7.7 % (5.3-12.2); NEUTROPHILS ABSOLUTE AUTO 6.71 K/mm3 (1.78-5.38); NEUTROPHILS PERCENT AUTO 65.6 % (34.0-67.9); PLATELET COUNT,PLT 370 K/mm3 (163-337); RED BLOOD CELL COUNT 4.81 M/mm3 (4.63-6.08); WHITE BLOOD CELL COUNT,WBC 10.24 K/mm3 (4.23-9.07)
[2022-07-27 02:17] LABS: APPEARANCE,URINE CLEAR (Clear); BILIRUBIN,URINE NEGATIVE (Negative); COLOR,URINE YELLOW (Yellow); GLUCOSE,URINE NEGATIVE (Negative); KETONES,URINE NEGATIVE (Negative); LEUKOCYTE ESTERASE,URINE NEGATIVE (Negative); NITRITE,URINE NEGATIVE (Negative); OCCULT BLOOD,URINE NEGATIVE (Negative); PROTEIN,URINE TRACE (Negative); UROBILINOGEN,URINE 0.2 (0.2-1.0)
[2022-07-27 02:25] LABS: BACTERIA,URINE FEW /hpf (FEW); EPITHELIAL CELLS,URINE 0-5 /hpf (0-5); MUCUS,URINE MODERATE /hpf (FEW); RBC,URINE 0-5 /hpf (0-5); WBC,URINE 0-5 /hpf (0-5)
[2022-07-27 02:26] LABS: AMORPHOUS SEDIMENT,URINE FEW /hpf (NOT SEEN)
[2022-07-27 02:53] LABS: A/G RATIO 0.9 (1-2); ALBUMIN 3.9 g/dl (3.4-5.0); ANION GAP 10.9 (5-15); BILIRUBIN TOTAL 0.4 mg/dL (0.2-1.0); BUN/CREATININE RATIO 16.3 (14-18); C-REACTIVE PROTEIN 0.3 mg/dL (<1.0); CREATININE 0.8 mg/dL (0.7-1.3); EST CRCL DRUG DOSING (CG) 168.71 mL/min; MAGNESIUM 2.2 mg/dL (1.8-2.4); POTASSIUM,K 3.9 mEq/L (3.5-5.1); PROTEIN TOTAL,TP 8.2 g/dl (6.4-8.2)
== END 2022-07-27 03:55 | disposition home or self-care (01) ==
LOC: JD.ED 01:13
DX: R10.13 Epigastric pain (principal); E86.0 Dehydration; J45.909 Unspecified asthma, uncomplicated; E66.9 Obesity, unspecified; Z68.30 Body mass index [BMI] 30.0-30.9, adult; Z86.16 Personal history of COVID-19; Z79.899 Other long term (current) drug therapy
CPT/HCPCS: 36415; 80053; 81001; 83605; 83690; 83735; 85025; 86140; 96361; 96374; 99284; J2405; J7120

== ENCOUNTER 2022-07-27 07:50 | Emergency (ER) | payer MEDICAID | END 2022-07-27 10:08 | disposition left against medical advice (07) | LOC: JD.ED 07:50 | DX: R44.3 Hallucinations, unspecified (principal); J45.909 Unspecified asthma, uncomplicated; E03.9 Hypothyroidism, unspecified; E66.9 Obesity, unspecified; Z68.30 Body mass index [BMI] 30.0-30.9, adult; Z86.16 Personal history of COVID-19 | CPT/HCPCS: 93005; 99284; 99285 ==

== ENCOUNTER 2022-07-27 10:51 | Emergency (ER) | payer MEDICAID ==
[2022-07-27 09:17] LABS: BASOPHILS ABSOLUTE AUTO 0.02 K/mm3 (0.01-0.08); BASOPHILS PERCENT AUTO 0.2 % (0.1-1.2); HEMATOCRIT 38.7 % (40.1-51.0); HEMOGLOBIN 12.4 gm/dl (13.7-17.5); IMMATURE GRAN ABSOLUTE AUTO 0.01 K/mm3 (0.00-0.10); IMMATURE GRAN PERCENT AUTO 0.1 % (<=1.0); LYMPHOCYTES ABSOLUTE AUTO 1.64 K/mm3 (1.32-3.57); LYMPHOCYTES PERCENT AUTO 16.4 % (21.8-53.1); MEAN CORPUSCULAR HEMOGLOBIN 27.3 pg (25.7-32.2); MEAN CORPUSCULAR VOLUME 85.2 fl (79.0-92.2); MEAN PLATELET VOLUME 9.8 fl (9.4-12.3); MONOCYTES ABSOLUTE AUTO 0.71 K/mm3 (0.30-0.82); MONOCYTES PERCENT AUTO 7.1 % (5.3-12.2); NEUTROPHILS ABSOLUTE AUTO 7.55 K/mm3 (1.78-5.38); NEUTROPHILS PERCENT AUTO 75.2 % (34.0-67.9); PLATELET COUNT,PLT 346 K/mm3 (163-337); RED BLOOD CELL COUNT 4.54 M/mm3 (4.63-6.08); WHITE BLOOD CELL COUNT,WBC 10.03 K/mm3 (4.23-9.07)
[2022-07-27 09:51] LABS: ALBUMIN 3.8 g/dl (3.4-5.0); BILIRUBIN TOTAL 0.4 mg/dL (0.2-1.0); BUN/CREATININE RATIO 13.8 (14-18); CALCIUM 8.8 mg/dL (8.5-10.1); CREATININE 0.8 mg/dL (0.7-1.3); EST CRCL DRUG DOSING (CG) 182.48 mL/min; PROTEIN TOTAL,TP 7.7 g/dl (6.4-8.2); TSH 2.017 uIU/mL (0.358-3.74)
[2022-07-27 10:34] LABS: APPEARANCE,URINE CLEAR (Clear); BILIRUBIN,URINE NEGATIVE (Negative); COLOR,URINE YELLOW (Yellow); GLUCOSE,URINE NEGATIVE (Negative); KETONES,URINE NEGATIVE (Negative); LEUKOCYTE ESTERASE,URINE NEGATIVE (Negative); NITRITE,URINE NEGATIVE (Negative); OCCULT BLOOD,URINE NEGATIVE (Negative); PROTEIN,URINE NEGATIVE (Negative); UROBILINOGEN,URINE 0.2 (0.2-1.0)
[2022-07-27 10:44] LABS: BARBITURATE SCREEN,URINE NEGATIVE (CUTOFF=200); BENZODIAZEPINES SCREEN,URINE NEGATIVE (CUTOFF=150); BUPRENORPHINE SCREEN,URINE NEGATIVE (CUTOFF=10); METHADONE SCREEN, URINE NEGATIVE (CUT0FF=200); METHAMPHETAMINES SCREEN, URINE NEGATIVE (CUTOFF=500); OXYCODONE SCREEN,URINE NEGATIVE (CUT0FF=100); PROPOXYPHENE SCREEN,URINE NEGATIVE (CUTOFF=300); THC SCREEN,URINE 20 NG/ML NEGATIVE (CUTOFF=50)
[2022-07-27 10:45] LABS: AMPHETAMINES SCREEN, URINE NEGATIVE (CUTOFF=500)
[2022-07-27] MEDS ORDERED: OLANZapine 5 MG Tab PO ONE (18:39)
[2022-07-28] MEDS ORDERED: OLANZapine 5 MG Tab PO STA (07:58)
== END 2022-07-28 11:49 ==
LOC: JD.ED 10:51
DX: R44.0 Auditory hallucinations (principal); J45.909 Unspecified asthma, uncomplicated; E03.9 Hypothyroidism, unspecified; E66.9 Obesity, unspecified; Z68.30 Body mass index [BMI] 30.0-30.9, adult; Z86.16 Personal history of COVID-19; Z79.899 Other long term (current) drug therapy
CPT/HCPCS: 36415; 80053; 80143; 80179; 80306; 80307; 81003; 84443; 85025; 99285; A9270; 90792-GT; 93010; 99284

== ENCOUNTER 2022-08-08 11:40 | Emergency (ER) | payer MEDICAID ==
[2022-08-08] MEDS ORDERED: levETIRAcetam Soln 500 MG/5 ML Cup PO ONE (12:00)
[2022-08-08] MEDS ORDERED: Pregabalin 75 MG Cap PO ONE (12:00)
[2022-08-08] MEDS ORDERED: OLANZapine 5 MG Tab PO ONE (12:00)
[2022-08-08] MEDS ORDERED: Venlafaxine 37.5 MG Cap.ER PO ONE (12:00)
[2022-08-08 13:01] LABS: BASOPHILS ABSOLUTE AUTO 0.03 K/mm3 (0.01-0.08); BASOPHILS PERCENT AUTO 0.5 % (0.1-1.2); EOSINOPHILS ABSOLUTE AUTO 0.09 K/mm3 (0.04-0.54); EOSINOPHILS PERCENT AUTO 1.4 (0.8-7.0); HEMATOCRIT 39.3 % (40.1-51.0); HEMOGLOBIN 12.5 gm/dl (13.7-17.5); LYMPHOCYTES ABSOLUTE AUTO 1.71 K/mm3 (1.32-3.57); LYMPHOCYTES PERCENT AUTO 27.3 % (21.8-53.1); MEAN CORPUSCULAR HEMOGLOBIN 27.2 pg (25.7-32.2); MEAN CORPUSCULAR HGB CONC 31.8 g/dl (32.2-35.5); MEAN CORPUSCULAR VOLUME 85.6 fl (79.0-92.2); MEAN PLATELET VOLUME 9.5 fl (9.4-12.3); MONOCYTES ABSOLUTE AUTO 0.55 K/mm3 (0.30-0.82); MONOCYTES PERCENT AUTO 8.8 % (5.3-12.2); NEUTROPHILS ABSOLUTE AUTO 3.88 K/mm3 (1.78-5.38); PLATELET COUNT,PLT 341 K/mm3 (163-337); RED BLOOD CELL COUNT 4.59 M/mm3 (4.63-6.08); WHITE BLOOD CELL COUNT,WBC 6.26 K/mm3 (4.23-9.07)
[2022-08-08 13:18] LABS: BARBITURATE SCREEN,URINE NEGATIVE (CUTOFF=200); BENZODIAZEPINES SCREEN,URINE NEGATIVE (CUTOFF=150); BUPRENORPHINE SCREEN,URINE NEGATIVE (CUTOFF=10); METHADONE SCREEN, URINE NEGATIVE (CUT0FF=200); METHAMPHETAMINES SCREEN, URINE NEGATIVE (CUTOFF=500); OXYCODONE SCREEN,URINE NEGATIVE (CUT0FF=100); PROPOXYPHENE SCREEN,URINE NEGATIVE (CUTOFF=300); THC SCREEN,URINE 20 NG/ML NEGATIVE (CUTOFF=50)
[2022-08-08] MEDS ORDERED: Venlafaxine 75 MG Cap.ER PO ONE (13:19)
[2022-08-08 13:21] LABS: AMPHETAMINES SCREEN, URINE NEGATIVE (CUTOFF=500)
[2022-08-08 13:36] LABS: A/G RATIO 0.8 (1-2); ALBUMIN 3.4 g/dl (3.4-5.0); BILIRUBIN TOTAL 0.3 mg/dL (0.2-1.0); BUN/CREATININE RATIO 14.4 (14-18); CALCIUM 8.5 mg/dL (8.5-10.1); CREATININE 0.9 mg/dL (0.7-1.3); EST CRCL DRUG DOSING (CG) 162.21 mL/min; PROTEIN TOTAL,TP 7.7 g/dl (6.4-8.2); TSH 1.688 uIU/mL (0.358-3.74)
== END 2022-08-09 02:34 ==
LOC: JD.ED 11:40
DX: F06.2 Psychotic disorder with delusions due to known physiological condition (principal); E66.9 Obesity, unspecified; Z68.27 Body mass index [BMI] 27.0-27.9, adult; Z86.16 Personal history of COVID-19; Z79.899 Other long term (current) drug therapy; Z20.822 Contact with and (suspected) exposure to COVID-19
CPT/HCPCS: 36415; 80053; 80143; 80179; 80306; 80307; 84443; 85025; 87635; 99285; A9270; U0002

== ENCOUNTER 2022-09-05 18:17 | Emergency (ER) | payer MEDICAID | END 2022-09-05 18:56 | disposition left against medical advice (07) | LOC: JD.ED 18:17 | DX: Z53.21 Procedure and treatment not carried out due to patient leaving prior to being seen by health care provider (principal) ==

== ENCOUNTER 2022-09-10 09:07 | Emergency (ER) | payer MEDICAID ==
[2022-09-10 10:59] LABS: BASOPHILS ABSOLUTE AUTO 0.03 K/mm3 (0.01-0.08); BASOPHILS PERCENT AUTO 0.4 % (0.1-1.2); EOSINOPHILS PERCENT AUTO 2.6 (0.8-7.0); HEMATOCRIT 30.4 % (40.1-51.0); HEMOGLOBIN 9.4 gm/dl (13.7-17.5); IMMATURE GRAN ABSOLUTE AUTO 0.01 K/mm3 (0.00-0.10); IMMATURE GRAN PERCENT AUTO 0.1 % (<=1.0); LYMPHOCYTES PERCENT AUTO 21.9 % (21.8-53.1); MEAN CORPUSCULAR HGB CONC 30.9 g/dl (32.2-35.5); MEAN PLATELET VOLUME 9.4 fl (9.4-12.3); MONOCYTES ABSOLUTE AUTO 0.83 K/mm3 (0.30-0.82); MONOCYTES PERCENT AUTO 10.7 % (5.3-12.2); NEUTROPHILS PERCENT AUTO 64.3 % (34.0-67.9); PLATELET COUNT,PLT 286 K/mm3 (163-337); RED BLOOD CELL COUNT 3.62 M/mm3 (4.63-6.08); WHITE BLOOD CELL COUNT,WBC 7.77 K/mm3 (4.23-9.07)
[2022-09-10 11:08] LABS: BARBITURATE SCREEN,URINE NEGATIVE (CUTOFF=200); BENZODIAZEPINES SCREEN,URINE PRESUMPTIVE POSITIVE (CUTOFF=150); BUPRENORPHINE SCREEN,URINE PRESUMPTIVE POSITIVE (CUTOFF=10); METHADONE SCREEN, URINE NEGATIVE (CUT0FF=200); METHAMPHETAMINES SCREEN, URINE NEGATIVE (CUTOFF=500); OXYCODONE SCREEN,URINE NEGATIVE (CUT0FF=100); PROPOXYPHENE SCREEN,URINE NEGATIVE (CUTOFF=300); THC SCREEN,URINE 20 NG/ML NEGATIVE (CUTOFF=50)
[2022-09-10 11:10] LABS: AMPHETAMINES SCREEN, URINE NEGATIVE (CUTOFF=500)
[2022-09-10 11:24] LABS: A/G RATIO 0.9 (1-2); ALBUMIN 3.6 g/dl (3.4-5.0); BILIRUBIN TOTAL 0.3 mg/dL (0.2-1.0); BUN/CREATININE RATIO 16.7 (14-18); CALCIUM 8.5 mg/dL (8.5-10.1); CREATININE 0.9 mg/dL (0.7-1.3); EST CRCL DRUG DOSING (CG) 160.8 mL/min; PROTEIN TOTAL,TP 7.5 g/dl (6.4-8.2); TSH 3.052 uIU/mL (0.358-3.74)
== END 2022-09-10 17:21 | disposition home or self-care (01) ==
LOC: JD.ED 09:07
DX: I82.811 Embolism and thrombosis of superficial veins of right lower extremity (principal); J45.909 Unspecified asthma, uncomplicated; Z79.01 Long term (current) use of anticoagulants; Z86.16 Personal history of COVID-19
CPT/HCPCS: 36415; 73110-26-RT; 73110-RT; 80053; 80143; 80179; 80306; 80307; 84443; 85025; 93005; 93926-26-RT; 93926-RT; 99283; 99284

== ENCOUNTER 2022-09-13 15:04 | Emergency (ER) | payer MEDICAID ==
[2022-09-13] MEDS ORDERED: Flumazenil 0.1 MG/ML 5 ML MDV IVPUSH ONE ×4 (15:16→16:18)
== END 2022-09-14 05:55 | disposition left against medical advice (07) ==
LOC: JD.ED 15:04
DX: T42.4X1A Poisoning by benzodiazepines, accidental (unintentional), initial encounter (principal); J45.909 Unspecified asthma, uncomplicated; E66.9 Obesity, unspecified; Z86.16 Personal history of COVID-19; Z79.899 Other long term (current) drug therapy; Z79.01 Long term (current) use of anticoagulants
CPT/HCPCS: 96374; 99285; J3490; 99284

== ENCOUNTER 2022-09-15 17:41 | Emergency (ER) | payer MEDICAID | END 2022-09-15 18:58 | LOC: JD.ED 17:41 | DX: Z53.21 Procedure and treatment not carried out due to patient leaving prior to being seen by health care provider (principal) ==

== ENCOUNTER 2022-09-20 19:34 | Emergency (ER) | payer MEDICAID ==
[2022-09-20] MEDS ORDERED: Lidocaine 1% 20 ML MDV INJECT ONE (20:03)
[2022-09-20 20:43] LABS: BASOPHILS ABSOLUTE AUTO 0.05 K/mm3 (0.01-0.08); BASOPHILS PERCENT AUTO 0.7 % (0.1-1.2); EOSINOPHILS ABSOLUTE AUTO 0.32 K/mm3 (0.04-0.54); EOSINOPHILS PERCENT AUTO 4.5 (0.8-7.0); HEMOGLOBIN 10.2 gm/dl (13.7-17.5); IMMATURE GRAN ABSOLUTE AUTO 0.01 K/mm3 (0.00-0.10); IMMATURE GRAN PERCENT AUTO 0.1 % (<=1.0); LYMPHOCYTES ABSOLUTE AUTO 1.93 K/mm3 (1.32-3.57); MEAN CORPUSCULAR HEMOGLOBIN 25.3 pg (25.7-32.2); MEAN CORPUSCULAR HGB CONC 30.9 g/dl (32.2-35.5); MEAN CORPUSCULAR VOLUME 81.9 fl (79.0-92.2); MEAN PLATELET VOLUME 9.1 fl (9.4-12.3); MONOCYTES ABSOLUTE AUTO 0.75 K/mm3 (0.30-0.82); MONOCYTES PERCENT AUTO 10.5 % (5.3-12.2); NEUTROPHILS ABSOLUTE AUTO 4.08 K/mm3 (1.78-5.38); NEUTROPHILS PERCENT AUTO 57.2 % (34.0-67.9); PLATELET COUNT,PLT 479 K/mm3 (163-337); RED BLOOD CELL COUNT 4.03 M/mm3 (4.63-6.08); WHITE BLOOD CELL COUNT,WBC 7.14 K/mm3 (4.23-9.07)
[2022-09-20 21:03] LABS: INR 1.06; PROTHROMBIN TIME 11.3 SECONDS (9.7-12.0)
[2022-09-20 21:05] LABS: A/G RATIO 0.8 (1-2); ALBUMIN 3.4 g/dl (3.4-5.0); BILIRUBIN TOTAL 0.3 mg/dL (0.2-1.0); CALCIUM 8.5 mg/dL (8.5-10.1); CREATININE 0.8 mg/dL (0.7-1.3); EST CRCL DRUG DOSING (CG) 180.9 mL/min; PROTEIN TOTAL,TP 7.7 g/dl (6.4-8.2)
[2022-09-20 21:30] LABS: BARBITURATE SCREEN,URINE NEGATIVE (CUTOFF=200); BENZODIAZEPINES SCREEN,URINE PRESUMPTIVE POSITIVE (CUTOFF=150); BUPRENORPHINE SCREEN,URINE PRESUMPTIVE POSITIVE (CUTOFF=10); METHADONE SCREEN, URINE NEGATIVE (CUT0FF=200); METHAMPHETAMINES SCREEN, URINE NEGATIVE (CUTOFF=500); OXYCODONE SCREEN,URINE NEGATIVE (CUT0FF=100); PROPOXYPHENE SCREEN,URINE NEGATIVE (CUTOFF=300); THC SCREEN,URINE 20 NG/ML NEGATIVE (CUTOFF=50)
[2022-09-20 21:33] LABS: AMPHETAMINES SCREEN, URINE NEGATIVE (CUTOFF=500)
[2022-09-21] MEDS ORDERED: OLANZapine 5 MG Tab PO SCH ×2 (03:15→21:00)
[2022-09-21] MEDS ORDERED: OLANZapine 5 MG Tab PO ONE (10:56)
[2022-09-21] MEDS ORDERED: OLANZapine 10 MG Vial IM ONE (13:44)
[2022-09-21] MEDS ORDERED: OLANZapine 10 MG Vial ONE (13:44)
== END 2022-09-21 14:03 ==
LOC: JD.ED 19:34
DX: S51.812A Laceration without foreign body of left forearm, initial encounter (principal); J45.909 Unspecified asthma, uncomplicated; K21.9 Gastro-esophageal reflux disease without esophagitis; E03.9 Hypothyroidism, unspecified; E66.9 Obesity, unspecified; Z68.30 Body mass index [BMI] 30.0-30.9, adult; Z79.01 Long term (current) use of anticoagulants; Z20.822 Contact with and (suspected) exposure to COVID-19; Z86.16 Personal history of COVID-19; X78.9XXA Intentional self-harm by unspecified sharp object, initial encounter
CPT/HCPCS: 12004; 36415; 80053; 80143; 80179; 80306; 80307; 85025; 85610; 87635; 96372; 99285; J2405; J3490; U0002

== ENCOUNTER 2022-10-18 01:08 | Emergency (ER) | payer MEDICAID | END 2022-10-18 03:13 | disposition left against medical advice (07) | LOC: JD.ED 01:08 | DX: T42.6X1A Poisoning by other antiepileptic and sedative-hypnotic drugs, accidental (unintentional), initial encounter (principal); K21.9 Gastro-esophageal reflux disease without esophagitis; E66.9 Obesity, unspecified; Z68.30 Body mass index [BMI] 30.0-30.9, adult; Z86.16 Personal history of COVID-19; Z79.01 Long term (current) use of anticoagulants; Z72.0 Tobacco use | CPT/HCPCS: 99283; 99284 ==

== ENCOUNTER 2022-10-18 12:00 | Emergency (ER) | payer MEDICAID | END 2022-10-18 12:48 | disposition home or self-care (01) | LOC: JD.ED 12:00 | DX: F19.10 Other psychoactive substance abuse, uncomplicated (principal); K21.9 Gastro-esophageal reflux disease without esophagitis; J45.909 Unspecified asthma, uncomplicated; E03.9 Hypothyroidism, unspecified; E66.9 Obesity, unspecified; Z68.29 Body mass index [BMI] 29.0-29.9, adult; Z79.01 Long term (current) use of anticoagulants; Z86.16 Personal history of COVID-19 | CPT/HCPCS: 99282; 99283 ==

== ENCOUNTER 2022-10-21 17:16 | Emergency (ER) | payer MEDICAID ==
[2022-10-21 19:51] LABS: BASOPHILS PERCENT AUTO 0.5 % (0.0-1.0); EOSINOPHILS ABSOLUTE AUTO 0.3 K/mm3 (0.0-0.4); EOSINOPHILS PERCENT AUTO 4.1 % (0.0-6.0); HEMATOCRIT 31.8 % (42.0-52.0); HEMOGLOBIN 9.9 gm/dl (14.0-18.0); IMMATURE GRAN ABSOLUTE AUTO 0.02 K/mm3 (0.00-0.05); IMMATURE GRAN PERCENT AUTO 0.3 % (0.0-0.4); LYMPHOCYTES ABSOLUTE AUTO 2.4 K/mm3 (1.0-4.8); LYMPHOCYTES PERCENT AUTO 31.8 % (24.0-44.0); MEAN CORPUSCULAR HEMOGLOBIN 24.6 pg (28.0-32.0); MEAN CORPUSCULAR HGB CONC 31.1 g/dl (32.0-36.0); MEAN CORPUSCULAR VOLUME 78.9 fl (83.0-99.0); MEAN PLATELET VOLUME 10.4 fl (9.4-12.4); MONOCYTES ABSOLUTE AUTO 0.7 K/mm3 (0.0-0.8); MONOCYTES PERCENT AUTO 9.2 % (0.0-8.0); NEUTROPHILS ABSOLUTE AUTO 4.1 K/mm3 (1.8-7.7); NEUTROPHILS PERCENT AUTO 54.1 % (41.0-71.0); PLATELET COUNT,PLT 311 K/mm3 (150-400); RED BLOOD CELL COUNT 4.03 M/mm3 (4.52-5.90); WHITE BLOOD CELL COUNT,WBC 7.57 K/mm3 (3.9-11.3)
[2022-10-21 20:19] LABS: ALBUMIN 3.6 g/dl (3.4-5.0); BILIRUBIN TOTAL 0.4 mg/dL (0.2-1.0); BUN/CREATININE RATIO 15.7 (14-18); CALCIUM 8.8 mg/dL (8.5-10.1); CREATININE 0.7 mg/dL (0.7-1.3); EST CRCL DRUG DOSING (CG) 206.74 mL/min; PROTEIN TOTAL,TP 7.4 g/dl (6.4-8.2); TSH 1.724 uIU/mL (0.358-3.74)
[2022-10-21 21:13] LABS: BARBITURATE SCREEN,URINE NEGATIVE (CUTOFF=200); BENZODIAZEPINES SCREEN,URINE NEGATIVE (CUTOFF=150); BUPRENORPHINE SCREEN,URINE NEGATIVE (CUTOFF=10); METHADONE SCREEN, URINE NEGATIVE (CUT0FF=200); METHAMPHETAMINES SCREEN, URINE PRESUMPTIVE POSITIVE (CUTOFF=500); OXYCODONE SCREEN,URINE NEGATIVE (CUT0FF=100); PROPOXYPHENE SCREEN,URINE NEGATIVE (CUTOFF=300); THC SCREEN,URINE 20 NG/ML NEGATIVE (CUTOFF=50)
[2022-10-21 21:14] LABS: AMPHETAMINES SCREEN, URINE PRESUMPTIVE POSITIVE (CUTOFF=500)
== END 2022-10-21 22:08 ==
LOC: JD.ED 17:16
DX: R45.851 Suicidal ideations (principal); F19.10 Other psychoactive substance abuse, uncomplicated; F17.210 Nicotine dependence, cigarettes, uncomplicated; J45.909 Unspecified asthma, uncomplicated; E66.9 Obesity, unspecified; Z68.29 Body mass index [BMI] 29.0-29.9, adult; Z86.16 Personal history of COVID-19; Z79.01 Long term (current) use of anticoagulants; Z79.899 Other long term (current) drug therapy
CPT/HCPCS: 36415; 80053; 80143; 80179; 80306; 80307; 84443; 85025; 99283; 99284

== ENCOUNTER 2022-10-30 18:34 | Emergency (ER) | payer MEDICAID ==
[2022-10-30] MEDS ORDERED: OLANZapine 5 MG Tab PO ONE (19:31)
[2022-10-30 19:51] LABS: BASOPHILS PERCENT AUTO 0.6 % (0.0-1.0); EOSINOPHILS ABSOLUTE AUTO 0.3 K/mm3 (0.0-0.4); HEMATOCRIT 30.9 % (42.0-52.0); HEMOGLOBIN 9.6 gm/dl (14.0-18.0); LYMPHOCYTES ABSOLUTE AUTO 2.7 K/mm3 (1.0-4.8); LYMPHOCYTES PERCENT AUTO 38.9 % (24.0-44.0); MEAN CORPUSCULAR HEMOGLOBIN 24.2 pg (28.0-32.0); MEAN CORPUSCULAR HGB CONC 31.1 g/dl (32.0-36.0); MEAN CORPUSCULAR VOLUME 77.8 fl (83.0-99.0); MEAN PLATELET VOLUME 9.5 fl (9.4-12.4); MONOCYTES ABSOLUTE AUTO 0.8 K/mm3 (0.0-0.8); NEUTROPHILS ABSOLUTE AUTO 3.2 K/mm3 (1.8-7.7); NEUTROPHILS PERCENT AUTO 45.5 % (41.0-71.0); PLATELET COUNT,PLT 354 K/mm3 (150-400); RED BLOOD CELL COUNT 3.97 M/mm3 (4.52-5.90); WHITE BLOOD CELL COUNT,WBC 7.01 K/mm3 (3.9-11.3)
[2022-10-30 20:17] LABS: ALBUMIN 3.6 g/dl (3.4-5.0); ANION GAP 11.8 (5-15); BILIRUBIN TOTAL 0.2 mg/dL (0.2-1.0); BUN/CREATININE RATIO 21.3 (14-18); CALCIUM 8.3 mg/dL (8.5-10.1); CREATININE 0.8 mg/dL (0.7-1.3); EST CRCL DRUG DOSING (CG) 180.9 mL/min; POTASSIUM,K 3.8 mEq/L (3.5-5.1); PROTEIN TOTAL,TP 7.2 g/dl (6.4-8.2); TSH 2.158 uIU/mL (0.358-3.74)
[2022-10-30] MEDS ORDERED: Nicotine 21 MG/24 Hr Patch TRDERM ONE (20:24)
[2022-10-30 20:32] LABS: BARBITURATE SCREEN,URINE NEGATIVE (CUTOFF=200); BENZODIAZEPINES SCREEN,URINE NEGATIVE (CUTOFF=150); BUPRENORPHINE SCREEN,URINE NEGATIVE (CUTOFF=10); METHADONE SCREEN, URINE NEGATIVE (CUT0FF=200); METHAMPHETAMINES SCREEN, URINE NEGATIVE (CUTOFF=500); OXYCODONE SCREEN,URINE NEGATIVE (CUT0FF=100); PROPOXYPHENE SCREEN,URINE NEGATIVE (CUTOFF=300); THC SCREEN,URINE 20 NG/ML NEGATIVE (CUTOFF=50)
[2022-10-30 20:37] LABS: AMPHETAMINES SCREEN, URINE PRESUMPTIVE POSITIVE (CUTOFF=500)
== END 2022-10-30 21:16 | disposition home or self-care (01) ==
LOC: JD.ED 18:34
DX: R45.851 Suicidal ideations (principal); J45.909 Unspecified asthma, uncomplicated; K21.9 Gastro-esophageal reflux disease without esophagitis; I26.99 Other pulmonary embolism without acute cor pulmonale; E66.9 Obesity, unspecified; Z68.29 Body mass index [BMI] 29.0-29.9, adult
CPT/HCPCS: 36415; 80053; 80143; 80179; 80306; 80307; 84443; 85025; 99284; A9270; 99285

== ENCOUNTER 2022-12-20 10:03 | Emergency (ER) | payer MEDICAID ==
[2022-12-20] MEDS ORDERED: Sodium Chloride 0.9% 10 ML Syringe FLUSH PRN (10:22)
[2022-12-20] MEDS ORDERED: Lactated Ringers 1,000 ML IV SCH (10:30)
[2022-12-20 11:20] LABS: BASOPHILS ABSOLUTE AUTO 0.1 K/mm3 (0.0-0.2); BASOPHILS PERCENT AUTO 0.6 % (0.0-1.0); EOSINOPHILS ABSOLUTE AUTO 0.1 K/mm3 (0.0-0.4); EOSINOPHILS PERCENT AUTO 1.6 % (0.0-6.0); HEMATOCRIT 35.3 % (42.0-52.0); IMMATURE GRAN ABSOLUTE AUTO 0.02 K/mm3 (0.00-0.05); IMMATURE GRAN PERCENT AUTO 0.2 % (0.0-0.4); LYMPHOCYTES ABSOLUTE AUTO 3.1 K/mm3 (1.0-4.8); LYMPHOCYTES PERCENT AUTO 36.8 % (24.0-44.0); MEAN CORPUSCULAR HEMOGLOBIN 24.1 pg (28.0-32.0); MEAN CORPUSCULAR HGB CONC 32.3 g/dl (32.0-36.0); MEAN PLATELET VOLUME 9.9 fl (9.4-12.4); MONOCYTES PERCENT AUTO 11.6 % (0.0-8.0); NEUTROPHILS ABSOLUTE AUTO 4.1 K/mm3 (1.8-7.7); NEUTROPHILS PERCENT AUTO 49.2 % (41.0-71.0); PLATELET COUNT,PLT 400 K/mm3 (150-400); RED BLOOD CELL COUNT 4.74 M/mm3 (4.52-5.90); WHITE BLOOD CELL COUNT,WBC 8.35 K/mm3 (3.9-11.3)
[2022-12-20 11:27] LABS: HEMOGLOBIN 11.4 gm/dl (14.0-18.0); MEAN CORPUSCULAR VOLUME 74.5 fl (83.0-99.0)
[2022-12-20 11:36] LABS: A/G RATIO 0.9 (1-2); ALBUMIN 3.9 g/dl (3.4-5.0); BILIRUBIN TOTAL 0.4 mg/dL (0.2-1.0); CALCIUM 9.1 mg/dL (8.5-10.1); EST CRCL DRUG DOSING (CG) 144.72 mL/min; PROTEIN TOTAL,TP 8.1 g/dl (6.4-8.2)
[2022-12-20 12:14] LABS: APPEARANCE,URINE CLEAR (Clear); BILIRUBIN,URINE NEGATIVE (Negative); COLOR,URINE YELLOW (Yellow); GLUCOSE,URINE NEGATIVE (Negative); KETONES,URINE NEGATIVE (Negative); LEUKOCYTE ESTERASE,URINE NEGATIVE (Negative); NITRITE,URINE NEGATIVE (Negative); OCCULT BLOOD,URINE NEGATIVE (Negative); PROTEIN,URINE TRACE (Negative); UROBILINOGEN,URINE 0.2 (0.2-1.0)
[2022-12-20 12:22] LABS: BACTERIA,URINE MODERATE /hpf (FEW); HYALINE CASTS,URINE 0-5 /lpf (0-5); MUCUS,URINE FEW /hpf (FEW); RBC,URINE 0-5 /hpf (0-5); SQUAMOUS EPITHELIAL CELLS,UR 0-5 /hpf (0-5); WBC,URINE 0-5 /hpf (0-5)
[2022-12-20 12:34] LABS: BARBITURATE SCREEN,URINE NEGATIVE (CUTOFF=200); BENZODIAZEPINES SCREEN,URINE NEGATIVE (CUTOFF=150); BUPRENORPHINE SCREEN,URINE NEGATIVE (CUTOFF=10); METHADONE SCREEN, URINE NEGATIVE (CUT0FF=200); METHAMPHETAMINES SCREEN, URINE PRESUMPTIVE POSITIVE (CUTOFF=500); OXYCODONE SCREEN,URINE NEGATIVE (CUT0FF=100); THC SCREEN,URINE 20 NG/ML NEGATIVE (CUTOFF=50)
[2022-12-20 12:36] LABS: AMPHETAMINES SCREEN, URINE PRESUMPTIVE POSITIVE (CUTOFF=500)
[2022-12-20] MEDS ORDERED: NS with KCl 40mEq 1,000 ML IV SCH (12:45)
[2022-12-20] MEDS ORDERED: Potassium Chloride 20 MEQ Tab.ER PO ONE (13:03)
== END 2022-12-20 13:15 | disposition left against medical advice (07) ==
LOC: JD.ED 10:03
DX: F15.10 Other stimulant abuse, uncomplicated (principal); F20.9 Schizophrenia, unspecified; K21.9 Gastro-esophageal reflux disease without esophagitis; E03.9 Hypothyroidism, unspecified; E66.9 Obesity, unspecified; Z68.30 Body mass index [BMI] 30.0-30.9, adult; Z86.718 Personal history of other venous thrombosis and embolism; Z86.16 Personal history of COVID-19; Z79.01 Long term (current) use of anticoagulants; Z79.899 Other long term (current) drug therapy
CPT/HCPCS: 36415; 70450; 70486; 80053; 80306; 80307; 81001; 85025; 87086; 93005; 96360; 99285; A9270; J3490; J7120; 93010; 99283

== ENCOUNTER 2022-12-23 18:07 | Emergency (ER) | payer MEDICAID ==
[2022-12-23 19:09] LABS: BASOPHILS PERCENT AUTO 0.6 % (0.0-1.0); EOSINOPHILS ABSOLUTE AUTO 0.2 K/mm3 (0.0-0.4); EOSINOPHILS PERCENT AUTO 3.4 % (0.0-6.0); HEMATOCRIT 35.7 % (42.0-52.0); IMMATURE GRAN ABSOLUTE AUTO 0.01 K/mm3 (0.00-0.05); IMMATURE GRAN PERCENT AUTO 0.2 % (0.0-0.4); LYMPHOCYTES ABSOLUTE AUTO 2.5 K/mm3 (1.0-4.8); LYMPHOCYTES PERCENT AUTO 39.8 % (24.0-44.0); MEAN CORPUSCULAR HGB CONC 30.8 g/dl (32.0-36.0); MEAN CORPUSCULAR VOLUME 77.9 fl (83.0-99.0); MONOCYTES ABSOLUTE AUTO 0.7 K/mm3 (0.0-0.8); MONOCYTES PERCENT AUTO 10.9 % (0.0-8.0); NEUTROPHILS ABSOLUTE AUTO 2.8 K/mm3 (1.8-7.7); NEUTROPHILS PERCENT AUTO 45.1 % (41.0-71.0); PLATELET COUNT,PLT 339 K/mm3 (150-400); RED BLOOD CELL COUNT 4.58 M/mm3 (4.52-5.90); WHITE BLOOD CELL COUNT,WBC 6.25 K/mm3 (3.9-11.3)
[2022-12-23 19:40] LABS: A/G RATIO 0.8 (1-2); ALBUMIN 3.2 g/dl (3.4-5.0); ANION GAP 12.3 (5-15); BILIRUBIN TOTAL 0.3 mg/dL (0.2-1.0); CALCIUM 8.7 mg/dL (8.5-10.1); CREATININE 0.8 mg/dL (0.7-1.3); EST CRCL DRUG DOSING (CG) 180.9 mL/min; POTASSIUM,K 3.3 mEq/L (3.5-5.1); TSH 2.042 uIU/mL (0.358-3.74)
[2022-12-24 06:21] LABS: BARBITURATE SCREEN,URINE NEGATIVE (CUTOFF=200); BENZODIAZEPINES SCREEN,URINE NEGATIVE (CUTOFF=150); BUPRENORPHINE SCREEN,URINE NEGATIVE (CUTOFF=10); METHADONE SCREEN, URINE NEGATIVE (CUT0FF=200); METHAMPHETAMINES SCREEN, URINE PRESUMPTIVE POSITIVE (CUTOFF=500); OXYCODONE SCREEN,URINE NEGATIVE (CUT0FF=100); THC SCREEN,URINE 20 NG/ML NEGATIVE (CUTOFF=50)
[2022-12-24 06:22] LABS: AMPHETAMINES SCREEN, URINE PRESUMPTIVE POSITIVE (CUTOFF=500)
== END 2022-12-24 07:12 | disposition home or self-care (01) ==
LOC: JD.ED 18:07
DX: T43.292A Poisoning by other antidepressants, intentional self-harm, initial encounter (principal); K21.9 Gastro-esophageal reflux disease without esophagitis; E66.9 Obesity, unspecified; F17.210 Nicotine dependence, cigarettes, uncomplicated; Z79.01 Long term (current) use of anticoagulants; Z79.899 Other long term (current) drug therapy; Z86.16 Personal history of COVID-19; Z68.27 Body mass index [BMI] 27.0-27.9, adult
CPT/HCPCS: 36415; 80053; 80143; 80179; 80306; 80307; 84443; 85025; 93005; 93010; 99285

== ENCOUNTER 2022-12-25 18:28 | Emergency (ER) | payer MEDICAID ==
[2022-12-25 18:57] LABS: BASOPHILS ABSOLUTE AUTO 0.1 K/mm3 (0.0-0.2); BASOPHILS PERCENT AUTO 0.6 % (0.0-1.0); EOSINOPHILS ABSOLUTE AUTO 0.2 K/mm3 (0.0-0.4); HEMATOCRIT 34.7 % (42.0-52.0); HEMOGLOBIN 10.8 gm/dl (14.0-18.0); IMMATURE GRAN ABSOLUTE AUTO 0.02 K/mm3 (0.00-0.05); IMMATURE GRAN PERCENT AUTO 0.3 % (0.0-0.4); LYMPHOCYTES ABSOLUTE AUTO 3.1 K/mm3 (1.0-4.8); LYMPHOCYTES PERCENT AUTO 38.4 % (24.0-44.0); MEAN CORPUSCULAR HEMOGLOBIN 24.2 pg (28.0-32.0); MEAN CORPUSCULAR HGB CONC 31.1 g/dl (32.0-36.0); MEAN CORPUSCULAR VOLUME 77.6 fl (83.0-99.0); MEAN PLATELET VOLUME 10.2 fl (9.4-12.4); MONOCYTES ABSOLUTE AUTO 0.7 K/mm3 (0.0-0.8); MONOCYTES PERCENT AUTO 9.3 % (0.0-8.0); NEUTROPHILS ABSOLUTE AUTO 3.9 K/mm3 (1.8-7.7); NEUTROPHILS PERCENT AUTO 48.4 % (41.0-71.0); PLATELET COUNT,PLT 371 K/mm3 (150-400); RED BLOOD CELL COUNT 4.47 M/mm3 (4.52-5.90); WHITE BLOOD CELL COUNT,WBC 7.99 K/mm3 (3.9-11.3)
[2022-12-25 19:27] LABS: A/G RATIO 0.9 (1-2); ALBUMIN 3.5 g/dl (3.4-5.0); ANION GAP 13.6 (5-15); BILIRUBIN TOTAL 0.4 mg/dL (0.2-1.0); CALCIUM 9.3 mg/dL (8.5-10.1); CREATININE 0.8 mg/dL (0.7-1.3); EST CRCL DRUG DOSING (CG) 180.9 mL/min; POTASSIUM,K 3.6 mEq/L (3.5-5.1); PROTEIN TOTAL,TP 7.5 g/dl (6.4-8.2); TSH 2.01 uIU/mL (0.358-3.74)
[2022-12-25 19:42] LABS: BARBITURATE SCREEN,URINE NEGATIVE (CUTOFF=200); BENZODIAZEPINES SCREEN,URINE NEGATIVE (CUTOFF=150); BUPRENORPHINE SCREEN,URINE NEGATIVE (CUTOFF=10); METHADONE SCREEN, URINE NEGATIVE (CUT0FF=200); METHAMPHETAMINES SCREEN, URINE PRESUMPTIVE POSITIVE (CUTOFF=500); OXYCODONE SCREEN,URINE NEGATIVE (CUT0FF=100); THC SCREEN,URINE 20 NG/ML NEGATIVE (CUTOFF=50)
[2022-12-25 19:44] LABS: AMPHETAMINES SCREEN, URINE PRESUMPTIVE POSITIVE (CUTOFF=500)
[2022-12-26] MEDS ORDERED: Apixaban 5 MG Tab PO ONE (00:05)
[2022-12-26] MEDS ORDERED: Venlafaxine 75 MG Cap.ER PO SCH (17:00)
[2022-12-26] MEDS ORDERED: ClonazePAM 1 MG Tab PO SCH (17:00)
[2022-12-26] MEDS ORDERED: OLANZapine 5 MG Tab PO SCH (21:00)
[2022-12-26] MEDS ORDERED: QUEtiapine 100 MG Tab PO SCH (21:00)
== END 2022-12-26 23:45 ==
LOC: JD.ED 18:28
DX: R45.851 Suicidal ideations (principal); J45.909 Unspecified asthma, uncomplicated; K21.9 Gastro-esophageal reflux disease without esophagitis; E66.9 Obesity, unspecified; Z68.27 Body mass index [BMI] 27.0-27.9, adult; Z86.16 Personal history of COVID-19; Z86.711 Personal history of pulmonary embolism; Z79.01 Long term (current) use of anticoagulants; Z79.899 Other long term (current) drug therapy
CPT/HCPCS: 36415; 80053; 80143; 80179; 80306; 80307; 84443; 85025; 99285; A9270

== ENCOUNTER 2023-01-15 16:48 | Emergency (ER) | payer MEDICAID ==
[2023-01-15 18:07] LABS: BASOPHILS ABSOLUTE AUTO 0.1 K/mm3 (0.0-0.2); BASOPHILS PERCENT AUTO 0.5 % (0.0-1.0); EOSINOPHILS ABSOLUTE AUTO 0.2 K/mm3 (0.0-0.4); EOSINOPHILS PERCENT AUTO 1.8 % (0.0-6.0); HEMATOCRIT 39.9 % (42.0-52.0); HEMOGLOBIN 12.6 gm/dl (14.0-18.0); IMMATURE GRAN ABSOLUTE AUTO 0.01 K/mm3 (0.00-0.05); IMMATURE GRAN PERCENT AUTO 0.1 % (0.0-0.4); LYMPHOCYTES ABSOLUTE AUTO 3.2 K/mm3 (1.0-4.8); LYMPHOCYTES PERCENT AUTO 34.4 % (24.0-44.0); MEAN CORPUSCULAR HEMOGLOBIN 24.4 pg (28.0-32.0); MEAN CORPUSCULAR HGB CONC 31.6 g/dl (32.0-36.0); MEAN CORPUSCULAR VOLUME 77.2 fl (83.0-99.0); MEAN PLATELET VOLUME 9.4 fl (9.4-12.4); MONOCYTES ABSOLUTE AUTO 0.8 K/mm3 (0.0-0.8); MONOCYTES PERCENT AUTO 8.5 % (0.0-8.0); NEUTROPHILS ABSOLUTE AUTO 5.1 K/mm3 (1.8-7.7); NEUTROPHILS PERCENT AUTO 54.7 % (41.0-71.0); PLATELET COUNT,PLT 390 K/mm3 (150-400); RED BLOOD CELL COUNT 5.17 M/mm3 (4.52-5.90); WHITE BLOOD CELL COUNT,WBC 9.27 K/mm3 (3.9-11.3)
[2023-01-15 18:25] LABS: BARBITURATE SCREEN,URINE NEGATIVE (CUTOFF=200); BENZODIAZEPINES SCREEN,URINE NEGATIVE (CUTOFF=150); BUPRENORPHINE SCREEN,URINE NEGATIVE (CUTOFF=10); METHADONE SCREEN, URINE NEGATIVE (CUT0FF=200); METHAMPHETAMINES SCREEN, URINE NEGATIVE (CUTOFF=500); OXYCODONE SCREEN,URINE NEGATIVE (CUT0FF=100); THC SCREEN,URINE 20 NG/ML NEGATIVE (CUTOFF=50)
[2023-01-15 18:29] LABS: AMPHETAMINES SCREEN, URINE NEGATIVE (CUTOFF=500)
[2023-01-15 18:29] LABS: A/G RATIO 0.9 (1-2); ALBUMIN 4.2 g/dl (3.4-5.0); ANION GAP 12.8 (5-15); BILIRUBIN TOTAL 0.4 mg/dL (0.2-1.0); CALCIUM 9.5 mg/dL (8.5-10.1); EST CRCL DRUG DOSING (CG) 144.72 mL/min; MAGNESIUM 1.9 mg/dL (1.8-2.4); POTASSIUM,K 3.8 mEq/L (3.5-5.1); PROTEIN TOTAL,TP 8.7 g/dl (6.4-8.2)
== END 2023-01-16 05:35 ==
LOC: JD.ED 16:48
DX: R45.851 Suicidal ideations (principal); R44.0 Auditory hallucinations; K21.9 Gastro-esophageal reflux disease without esophagitis; J45.909 Unspecified asthma, uncomplicated; E66.9 Obesity, unspecified; E03.9 Hypothyroidism, unspecified; Z68.29 Body mass index [BMI] 29.0-29.9, adult; Z79.899 Other long term (current) drug therapy; Z86.16 Personal history of COVID-19; Z90.49 Acquired absence of other specified parts of digestive tract
CPT/HCPCS: 36415; 72131; 72131-26; 80053; 80143; 80179; 80306; 80307; 83735; 85025; 99285

== ENCOUNTER 2024-05-24 22:41 | Emergency (ER) | payer MEDICAID ==
[2024-05-25 01:02] LABS: BASOPHILS PERCENT AUTO 0.5 % (0.0-1.0); EOSINOPHILS ABSOLUTE AUTO 0.2 K/mm3 (0.0-0.4); EOSINOPHILS PERCENT AUTO 2.3 % (0.0-6.0); HEMATOCRIT 38.8 % (42.0-52.0); HEMOGLOBIN 12.9 gm/dl (14.0-18.0); IMMATURE GRAN ABSOLUTE AUTO 0.03 K/mm3 (0.00-0.05); IMMATURE GRAN PERCENT AUTO 0.3 % (0.0-0.4); LYMPHOCYTES ABSOLUTE AUTO 2.4 K/mm3 (1.0-4.8); LYMPHOCYTES PERCENT AUTO 27.9 % (24.0-44.0); MEAN CORPUSCULAR HGB CONC 33.2 g/dl (32.0-36.0); MEAN CORPUSCULAR VOLUME 90.2 fl (83.0-99.0); MEAN PLATELET VOLUME 8.9 fl (9.4-12.4); MONOCYTES ABSOLUTE AUTO 1.1 K/mm3 (0.0-0.8); MONOCYTES PERCENT AUTO 12.4 % (0.0-8.0); NEUTROPHILS PERCENT AUTO 56.6 % (41.0-71.0); PLATELET COUNT,PLT 288 K/mm3 (150-400); WHITE BLOOD CELL COUNT,WBC 8.76 K/mm3 (3.9-11.3)
[2024-05-25 01:23] LABS: ALBUMIN 3.1 g/dl (3.4-5.0); ANION GAP 7.7 (5-15); BUN/CREATININE RATIO 18.8 (14-18); CREATININE 0.8 mg/dL (0.7-1.3); EST CRCL DRUG DOSING (CG) 188.33 mL/min; POTASSIUM,K 3.7 mEq/L (3.5-5.1); PROTEIN TOTAL,TP 6.7 g/dl (6.4-8.2)
[2024-05-25 01:24] LABS: A/G RATIO 0.9 (1-2); BILIRUBIN TOTAL 0.3 mg/dL (0.2-1.0)
[2024-05-25 01:54] LABS: BARBITURATE SCREEN,URINE NEGATIVE (CUTOFF=200); BENZODIAZEPINES SCREEN,URINE NEGATIVE (CUTOFF=150); BUPRENORPHINE SCREEN,URINE NEGATIVE (CUTOFF=10); METHADONE SCREEN, URINE NEGATIVE (CUT0FF=200); METHAMPHETAMINES SCREEN, URINE NEGATIVE (CUTOFF=500); OXYCODONE SCREEN,URINE NEGATIVE (CUT0FF=100); THC SCREEN,URINE 20 NG/ML NEGATIVE (CUTOFF=50)
[2024-05-25 01:56] LABS: AMPHETAMINES SCREEN, URINE NEGATIVE (CUTOFF=500)
[2024-05-25] MEDS: Venlafaxine 37.5 MG Tab PO SCH (03:16)
[2024-05-25] MEDS: ARIPiprazole 5 MG Tab PO ONE (03:16)
[2024-05-25] MEDS: QUEtiapine 25 MG Tab PO ONE (03:16)
[2024-05-25] MEDS ORDERED: QUEtiapine 100 MG Tab PO SCH (21:00)
== END 2024-05-25 03:15 | disposition home or self-care (01) ==
LOC: JD.ED 22:41
DX: F39 Unspecified mood [affective] disorder (principal); Z79.01 Long term (current) use of anticoagulants; Z79.899 Other long term (current) drug therapy; Z86.16 Personal history of COVID-19
CPT/HCPCS: 36415; 80053; 80143; 80179; 80306; 80307; 85025; 99283; A9270; 99285

== ENCOUNTER 2024-05-26 14:52 | Emergency (ER) | payer MEDICAID ==
[2024-05-26] MEDS: ARIPiprazole 5 MG Tab PO ONE (16:14)
[2024-05-26] MEDS: QUEtiapine 100 MG Tab PO ONE (16:14)
== END 2024-05-26 16:15 | disposition home or self-care (01) ==
LOC: JD.ED 14:52
DX: Z76.0 Encounter for issue of repeat prescription (principal); J45.909 Unspecified asthma, uncomplicated; K21.9 Gastro-esophageal reflux disease without esophagitis; E66.9 Obesity, unspecified; E03.9 Hypothyroidism, unspecified; Z79.899 Other long term (current) drug therapy; Z86.16 Personal history of COVID-19; Z90.49 Acquired absence of other specified parts of digestive tract; Z68.27 Body mass index [BMI] 27.0-27.9, adult
CPT/HCPCS: 99281; A9270; 99283

== ENCOUNTER 2024-05-30 13:37 | Emergency (ER) | payer MEDICAID ==
[2024-05-30] MEDS: LORazepam 1 MG Tab PO ONE ×2 (14:29→23:38)
[2024-05-30 14:51] LABS: BASOPHILS PERCENT AUTO 0.5 % (0.0-1.0); EOSINOPHILS ABSOLUTE AUTO 0.1 K/mm3 (0.0-0.4); EOSINOPHILS PERCENT AUTO 2.4 % (0.0-6.0); HEMATOCRIT 42.1 % (42.0-52.0); HEMOGLOBIN 13.9 gm/dl (14.0-18.0); IMMATURE GRAN ABSOLUTE AUTO 0.02 K/mm3 (0.00-0.05); IMMATURE GRAN PERCENT AUTO 0.3 % (0.0-0.4); LYMPHOCYTES ABSOLUTE AUTO 1.7 K/mm3 (1.0-4.8); LYMPHOCYTES PERCENT AUTO 29.2 % (24.0-44.0); MEAN CORPUSCULAR VOLUME 90.7 fl (83.0-99.0); MEAN PLATELET VOLUME 9.2 fl (9.4-12.4); MONOCYTES ABSOLUTE AUTO 0.5 K/mm3 (0.0-0.8); NEUTROPHILS ABSOLUTE AUTO 3.4 K/mm3 (1.8-7.7); NEUTROPHILS PERCENT AUTO 58.6 % (41.0-71.0); PLATELET COUNT,PLT 292 K/mm3 (150-400); RED BLOOD CELL COUNT 4.64 M/mm3 (4.52-5.90); WHITE BLOOD CELL COUNT,WBC 5.75 K/mm3 (3.9-11.3)
[2024-05-30 15:18] LABS: A/G RATIO 0.9 (1-2); ALBUMIN 3.4 g/dl (3.4-5.0); BILIRUBIN TOTAL 0.3 mg/dL (0.2-1.0); CALCIUM 8.8 mg/dL (8.5-10.1); CREATININE 0.8 mg/dL (0.7-1.3); EST CRCL DRUG DOSING (CG) 170.28 mL/min; PROTEIN TOTAL,TP 7.4 g/dl (6.4-8.2); TSH 1.33 uIU/mL (0.358-3.74)
[2024-05-30 16:21] LABS: AMPHETAMINES SCREEN, URINE NEGATIVE (CUTOFF=500); BARBITURATE SCREEN,URINE NEGATIVE (CUTOFF=200); BENZODIAZEPINES SCREEN,URINE NEGATIVE (CUTOFF=150); BUPRENORPHINE SCREEN,URINE NEGATIVE (CUTOFF=10); METHADONE SCREEN, URINE NEGATIVE (CUT0FF=200); METHAMPHETAMINES SCREEN, URINE NEGATIVE (CUTOFF=500); OXYCODONE SCREEN,URINE NEGATIVE (CUT0FF=100); THC SCREEN,URINE 20 NG/ML NEGATIVE (CUTOFF=50)
[2024-05-30] MEDS: QUEtiapine 100 MG Tab PO ONE (18:33)
[2024-05-30] MEDS: ARIPiprazole 5 MG Tab PO ONE (18:36)
== END 2024-05-31 01:21 ==
LOC: JD.ED 13:37 → EEVIPCON 13:37 → JD.ED 05-31 01:21
DX: F20.89 Other schizophrenia (principal); Z79.899 Other long term (current) drug therapy; Z86.16 Personal history of COVID-19
CPT/HCPCS: 36415; 80053; 80143; 80179; 80306; 80307; 84443; 85025; 87428; 99284; A9270; 99285